=== PATIENT | female | born 1940 | race Caucasian/White ===

== ENCOUNTER 2016-12-06 10:33 | Inpatient (IN) | payer OTHER, MEDICARE ==
[2016-12-06 10:47] VITALS: BMI 26.5
--- NOTE | 2016-12-06 11:43 | PDOC ---
History of Present Illness - General History Source: Patient, Family, Old Records Exam Limitations: No Limitations - History of Present Illness Initial Comments: 12/06/16 12:36 The patient is a 76 year old female, with a significant past medical history of hypertension, hyperlipidemia, sciatica, restless leg syndrome and osteoarthritis , who presents to the emergency department with worsening bilateral lower extremity swelling for the past week. The patients family is at the bedside. Currently in the ED, the patient additionally reports right hip pain, but notes that this is a chronic issue, which she has been worked up for (the patient reports that she had MRIs of lumbar spine and right hip on 11/19/2016) and is scheduled for a right total hip replacement secondary to osteoarthritis on 2016. The patient reports that the chronic right hip pain is exacerbated when lying down so she sits upright all day, including when she sleeps at night. The patient reports that she uses a wheelchair to get around. As a result, the patient reports that her legs are never elevated. Approximately one week ago, the patient noticed that her lower extremities had started to become swollen. The patient reports progressively worsening bilateral lower extremity swelling since then. The patients daughter reports that she called the patients PCP ( Dr. Kay Rucker) earlier this morning, who advised they visit the ED for further evaluation. The patient reports that she has never experienced lower extremity swelling ever before. The patient denies chest pain or shortness of breath. The patient denies any extremity weakness/numbness/tingling. The patient denies any calf pain. The patient reports that she most recently took Oxycodone this morning at approximately 9AM for pain. Allergies: Penicillins. Past Surgical History: Left Total Hip Replacement. Social History: Non smoker. Denies alcohol or drug use. PCP: Dr. Kay Rucker Front Desk Representative: Dr. Rafael Perez Orthopedics: Dr. Will Ramos <Samantha Alfaro - Last Filed: 12/06/16 15:54> <Yoselyn Gil - Last Filed: 12/07/16 10:46> - General Chief Complaint: Edema Stated Complaint: PAIN, SWOLLEN LEGS Time Seen by Provider: 12/06/16 11:05 Past History <Samantha Alfaro - Last Filed: 12/06/16 15:54> - Past Medical History Cardiac Disorders: Yes Hypercholesterolemia: Yes Other medical history: sciatica,restless leg syndrome - Psycho/Social/Smoking Cessation Hx Suicidal Ideation: No Smoking History: Never smoked Substance Use Type: None <Yoselyn Gil - Last Filed: 12/07/16 10:46> - Past Medical History Allergies/Adverse Reactions: Allergies Allergy/AdvReac Type Severity Reaction Status Date / Time Penicillins Allergy Itching Verified 12/06/16 10:45 Home Medications: Ambulatory Orders Aspirin [ASA -] 81 mg PO DAILY 12/06/16 Atorvastatin Ca [Lipitor] 10 mg PO HS 12/06/16 Carvedilol [Coreg -] 25 mg PO BID 12/06/16 Gabapentin [Neurontin -] 300 mg PO BID 12/06/16 Losartan Potassium 25 mg PO DAILY 12/06/16 Oxycodone HCl/Acetaminophen [Percocet 5-325 mg Tablet] 1 tab PO Q4H PRN Oxycodone Sr [Oxycontin] 0 mg PO BID 12/06/16 Pramipexole Di-HCl [Mirapex] 0.5 mg PO BID 12/06/16 Review of Systems - Review of Systems Able to Perform ROS?: Yes Comments:: 12/06/16 11:50 GENERAL/CONSTITUTIONAL: No fever or chills. No weakness. HEAD, EYES, EARS, NOSE AND THROAT: No change in vision. No ear pain or discharge. No sore throat. CARDIOVASCULAR: No chest pain or shortness of breath. RESPIRATORY: No cough, wheezing, or hemoptysis. GASTROINTESTINAL: No nausea, vomiting, diarrhea or constipation. GENITOURINARY: No dysuria, frequency, or change in urination. MUSCULOSKELETAL: +Right hip pain. No muscle swelling or pain. No neck or back pain. EXTREMITY: +Bilateral lower extremity swelling. SKIN: No rash. NEUROLOGIC: No headache, vertigo, loss of consciousness, or change in strength/ sensation. ENDOCRINE: No increased thirst. No abnormal weight change. HEMATOLOGIC/LYMPHATIC: No anemia, easy bleeding, or history of blood clots. ALLERGIC/IMMUNOLOGIC: No hives or skin allergy. <Samantha Alfaro - Last Filed: 12/06/16 15:54> *Physical Exam - Vital Signs Last Vital Signs Temp Pulse Resp BP Pulse Ox 98 F 62 17 137/64 95 12/06/16 10:45 12/06/16 10:45 12/06/16 10:45 12/06/16 10:45 12/06/16 10:45 - Physical Exam Comments: 12/06/16 11:49 GENERAL: Awake, alert, and fully oriented, in no acute distress. HEAD: No signs of trauma. EYES: PERRLA, EOMI, sclera anicteric, conjunctiva clear. ENT: Auricles normal inspection, hearing grossly normal, nares patent, oropharynx clear without exudates. Moist mucosa. NECK: Normal ROM, supple, no lymphadenopathy, JVD, or masses. LUNGS: Breath sounds equal, clear to auscultation bilaterally. No wheezes, and no crackles. HEART: Regular rate and rhythm, normal S1 and S2, no murmurs, rubs or gallops. ABDOMEN: Soft, nontender, normoactive bowel sounds. No guarding, no rebound. No masses. EXTREMITIES: 2+ pitting edema to the mid villarreal, bilaterally. Normal range of motion. No clubbing or cyanosis. No cords, erythema, or tenderness. NEUROLOGICAL: Cranial nerves II through XII intact. Normal speech. Unable to ambulate secondary to pain. SKIN: Warm, dry, normal turgor, no rashes or lesions noted. <Samantha Alfaro - Last Filed: 12/06/16 15:54> - Vital Signs Last Vital Signs Temp Pulse Resp BP Pulse Ox 98 F 62 17 137/64 95 12/06/16 10:45 12/06/16 10:45 12/06/16 10:45 12/06/16 10:45 12/06/16 10:45 <Yoselyn Gil - Last Filed: 12/07/16 10:46> ED Treatment Course - LABORATORY CBC & Chemistry Diagram: 12/06/16 11:43 12/06/16 11:43 <Samantha Alfaro - Last Filed: 12/06/16 15:54> - LABORATORY CBC & Chemistry Diagram: 12/07/16 07:45 12/07/16 07:45 <Yoselyn Gil - Last Filed: 12/07/16 10:46> Medical Decision Making - Medical Decision Making 12/06/16 13:51 EXAM: RAD/HIP - RIGHT Reviewed By: Dr. Lui Jeong IMPRESSION: Severe arthritic changes right hip. EXAM: US/DUPLEX VASCUL US - 2LEGS Reviewed By: Dr. Venu Lopez IMPRESSION: There is no evidence of deep venous thromboses in both lower extremities. Call placed to Dr. Kay Rucker at 13:50. Connected and case discussed. <Samantha Alfaro - Last Filed: 12/06/16 15:54> - Medical Decision Making Pt required multiple doses of morphine for pain, on top of the opioids she has taken as an outpatient. I discussed with Dr. Santamaria, recommended ultrasound to further evaluate. Requested admission to the hospitalist service for intractable pain. Will consult with Dr. Ramos, who has been planning for patient's hip replacement later this month. <Yoselyn Gil - Last Filed: 12/07/16 10:46> *DC/Admit/Observation/Transfer - Attestations Scribe Attestion: 12/06/16 11:49 Documentation prepared by Samantha Alfaro, acting as medical office assistant for Yoselyn Gil MD. <Samantha Alfaro - Last Filed: 12/06/16 15:54> - Discharge Dispostion Admit: Yes <Yoselyn Gil - Last Filed: 12/07/16 10:46> Diagnosis at time of Disposition: Leg pain, bilateral, Intractable pain - Discharge Dispostion Condition at time of disposition: Stable - Referrals
[2016-12-06 12:52] LABS: BASOPHIL 0.3 % (0-2.0); EOSINOPHIL 1.1 % (0-4.5); MCH 30.9 pg (25.7-33.7); MCHC 33.5 g/dl (32.0-36.0); MEAN CELL VOLUME 92.3 fl (80-96); MEAN PLT VOLUME 7.2 fl (7.5-11.1); NEUTROPHILS 51.9 % (42.8-82.8); PLATELET COUNT 256 K/MM3 (134-434); RDW 13.5 % (11.6-15.6); WHITE BLOOD COUNT 7.6 K/mm3 (4.0-10.0)
[2016-12-06] MEDS ORDERED: morphine CARPU-JECT 2 MG/1 ML DISP.SYRIN IVPUSH ONE ×2 (13:02→13:38)
[2016-12-06 13:12] LABS: ALBUMIN 3.8 g/dl (3.4-5.0); ANION GAP 8 (8-16); BILIRUBIN,TOTAL 0.4 mg/dL (0.2-1.0); CALCIUM 9.2 mg/dL (8.5-10.1); CO2 29 mmol/L (21-32); COCKROFT - GAULT 80.2315; CREATININE 0.6 mg/dL (0.55-1.02); GLUCOSE,RANDOM 106 mg/dL (74-106); SGOT/AST 18 U/L (15-37); SGPT/ALT 20 U/L (12-78); TOT PROT 6.8 g/dl (6.4-8.2)
[2016-12-06 13:13] LABS: ALK PHOS 93 U/L (45-117)
[2016-12-06] MEDS ORDERED: morphine CARPU-JECT 2 MG/1 ML DISP.SYRIN ONE ×2 (13:21→13:51)
[2016-12-06] MEDS ORDERED: morphine CARPU-JECT 4 MG/1 ML DISP.SYRIN IVPUSH ONE (15:53)
[2016-12-06] MEDS ORDERED: ACETAMINOPHEN 325 MG TABLET (FP) PO PRN ×2 (15:53→18:21)
[2016-12-06] MEDS ORDERED: TRIAMCINOLONE HEXACETONIDE 20 MG/1 ML VIAL IAR ONE (15:58)
[2016-12-06] MEDS ORDERED: LIDOCAINE HCL/PF 2% SDV 5ML VIAL SQ ONE (15:59)
--- NOTE | 2016-12-06 16:03 | CONSULT ---
Consult Consult Specialty:: Dr. Rucker Reason for Consultation:: 76 y/o female admitted with excruciating lower extremity pain, bilateral. The patient has severe O/A, and had been scheduled for Total hip replacement by Dr. Will Ramos. No h/o trauma. The patient has progressive bilateral LE edema. No chest pain. The patient is rolling in pain. The pain she ays is bilateral, and is radiating from both hips. She had left hip replacement several years ago, and had been doing well till this pain has started. The patient has h/o of HTN, Sciatica, O/A, Left hip replacement. - History Source History Provided By: Patient Limitations to Obtaining History: No Limitations - Past Medical History Cardio/Vascular: Yes: HTN, Hyperlipdemia Pulmonary: Yes: Other. No: Asthma, Bronchitis, Cancer, COPD, O2 Dependent, Pneumonia, Previously Intubated, Pulmonary Embolus, Pulmonary Fibrosis, Sleep Apnea Gastrointestinal: No: Ascites, Crohn's Disease, Pancreatitis Hepatobiliary: No: Cirrhosis, Cholelithiasis Renal/: No: Renal Failure Rheumatology: Yes: Other (Osteoarthritis) Endocrine: No: Diabetes Mellitus, Hyperparathyroidism, Hypothyroidism - Past Surgical History Past Surgical History: Yes: Joint Replacement - Smoking History Smoking history: Never smoked Home Medications - Allergies Allergies/Adverse Reactions: Allergies Allergy/AdvReac Type Severity Reaction Status Date / Time Penicillins Allergy Itching Verified 12/06/16 10:45 - Home Medications Home Medications: Ambulatory Orders Aspirin [ASA -] 81 mg PO DAILY 12/06/16 Atorvastatin Ca [Lipitor] 10 mg PO HS 12/06/16 Carvedilol [Coreg -] 25 mg PO BID 12/06/16 Gabapentin [Neurontin -] 300 mg PO BID 12/06/16 Losartan Potassium 25 mg PO DAILY 12/06/16 Oxycodone HCl/Acetaminophen [Percocet 5-325 mg Tablet] 1 tab PO Q4H PRN Oxycodone Sr [Oxycontin] 0 mg PO BID 12/06/16 Pramipexole Di-HCl [Mirapex] 0.5 mg PO BID 12/06/16 Review of Systems - Review of Systems Constitutional: reports: No Symptoms Eyes: reports: No Symptoms, Floaters HENT: reports: No Symptoms Neck: reports: No Symptoms Cardiovascular: denies: Chest Pain, Palpitations Respiratory: denies: Cough, Orthopnea Gastrointestinal: denies: Abdominal Pain Genitourinary: denies: Burning, Flank Pain Musculoskeletal: reports: Back Pain, Extremity Pain, Joint Pain, Muscle Pain Neurological: reports: No Symptoms Physical Exam Vital Signs: Vital Signs Temperature 98 F 12/06/16 10:45 Pulse Rate 79 12/06/16 15:14 Respiratory Rate 18 12/06/16 15:14 Blood Pressure 171/87 12/06/16 15:14 O2 Sat by Pulse Oximetry (%) 97 12/06/16 15:14 Constitutional: Yes: Other (Severe pain in both LE) HENT: Yes: Atraumatic Neck: Yes: Supple Cardiovascular: Yes: Regular Rate and Rhythm, S1, S2 Respiratory: Yes: Regular, CTA Bilaterally Gastrointestinal: Yes: Normal Bowel Sounds Edema: Yes Edema: LLE: 4+, RLE: 4+ Neurological: Yes: Alert, Oriented Psychiatric: Yes: Alert, Oriented Labs: CBC, BMP 12/06/16 11:43 12/06/16 11:43 Problem List - Problems (1) Intractable pain Code(s): R52 - PAIN, UNSPECIFIED (2) Leg pain, bilateral Code(s): M79.604 - PAIN IN RIGHT LEG M79.605 - PAIN IN LEFT LEG (3) Edema Code(s): R60.9 - EDEMA, UNSPECIFIED (4) Hypertension Code(s): I10 - ESSENTIAL (PRIMARY) HYPERTENSION (5) Osteoarthritis, hip, bilateral Code(s): M16.0 - BILATERAL PRIMARY OSTEOARTHRITIS OF HIP Assessment/Plan 76 y/o female admitted with intractable pain and significant edema of the LE ( taty). Will need Orthopedic eval, Pain management eval Analgesics Diuretics Will follow with derik. Kay Rucker MD
[2016-12-06] MEDS ORDERED: FUROSEMIDE 40 MG TABLET (FP) PO SCH (16:15)
[2016-12-06] MEDS ORDERED: morphine CARPU-JECT 4 MG/1 ML DISP.SYRIN ONE (16:16)
[2016-12-06] MEDS ORDERED: LIDOCAINE HCL 2% (20ML MULTI-DOSE VIAL) NR ONE (16:17)
[2016-12-06] MEDS ORDERED: ENOXAPARIN NA (PORCINE) 40 MG/0.4 ML DISP.SYRIN SQ ONE (16:17)
[2016-12-06] MEDS ORDERED: FUROSEMIDE 40 MG TABLET (FP) ONE (16:17)
[2016-12-06] MEDS: ENOXAPARIN NA (PORCINE) 40 MG/0.4 ML DISP.SYRIN SQ SCH (16:24)
[2016-12-06] MEDS ORDERED: OXYCODONE/APAP 5/325MG COMBO TABLET PO PRN (17:54)
[2016-12-06] MEDS ORDERED: oxyCODONE HCL 5 MG TABLET PO PRN (18:21)
[2016-12-06 19:39] LABS: MAGNESIUM 2.1 mg/dL (1.8-2.4)
[2016-12-06 19:40] LABS: PHOSPHOROUS 3.8 mg/dL (2.5-4.9)
--- NOTE | 2016-12-06 20:07 | HP ---
Admitting History and Physical - Primary Care Physician PCP: Kay Rucker - Admission Chief Complaint: Lower ext pain, swelling, immobility History of Present Illness: This 76 year old female with HTN, HLD, severe OA, and hip replacement 9 years ago presented to the ED with bilateral lower extremity edema and intractable pain. Two weeks ago the swelling in the legs began and in the past week they have worsened and today coupled with the pain the patient was prompted to go to the ED. While in the ED pt states her legs feel better in a dependent position. Her daughter notes the RLE was more swollen than the left however now the Left is increased in edema with a anterior villarreal fluid collection the size of a to. She denies hx of CHF, DM, kidney issues. She denies SOB and CP. She has been very healthy and no in contact with any sick persons. She has not had a BM in 1 week, she has gained weight due to increase in food intake and states she has been sedentary. She has not had any issues following her first hip replacement until now and is scheduled for R hip replacement on . History Source: Patient, Family Member Limitations to Obtaining History: No Limitations - Past Medical History Cardiovascular: Yes: HTN, Hyperlipdemia Pulmonary: Yes: Other. No: Asthma, Bronchitis, Cancer, COPD, O2 Dependent, Pneumonia, Previously Intubated, Pulmonary Embolus, Pulmonary Fibrosis, Sleep Apnea Gastrointestinal: No: Ascites, Crohn's Disease, Pancreatitis Hepatobiliary: No: Cirrhosis, Cholelithiasis Renal/: No: Renal Failure Musculoskeletal: Yes: Osteoarthritis Rheumatology: Yes: Other (Osteoarthritis) Endocrine: No: Diabetes Mellitus, Hyperparathyroidism, Hypothyroidism - Past Surgical History Past Surgical History: Yes: Joint Replacement Additional Past Surgical History: L hip replacement 9 years ago - Smoking History Smoking history: Never smoked - Alcohol/Substance Use Hx Alcohol Use: No History of Substance Use: reports: None - Social History Usual Living Arrangement: Yes: With Spouse ADL: Independent Home Medications - Allergies Allergies/Adverse Reactions: Allergies Allergy/AdvReac Type Severity Reaction Status Date / Time Penicillins Allergy Itching Verified 12/06/16 10:45 - Home Medications Home Medications: Ambulatory Orders Aspirin [ASA -] 81 mg PO DAILY 12/06/16 Atorvastatin Ca [Lipitor] 10 mg PO HS 12/06/16 Carvedilol [Coreg -] 25 mg PO BID 12/06/16 Gabapentin [Neurontin -] 300 mg PO BID 12/06/16 Losartan Potassium 25 mg PO DAILY 12/06/16 Oxycodone HCl/Acetaminophen [Percocet 5-325 mg Tablet] 1 tab PO Q4H PRN Oxycodone Sr [Oxycontin] 0 mg PO BID 12/06/16 Pramipexole Di-HCl [Mirapex] 0.5 mg PO BID 12/06/16 Review of Systems - Review of Systems Constitutional: reports: No Symptoms Eyes: reports: No Symptoms HENT: reports: No Symptoms Neck: reports: No Symptoms Cardiovascular: reports: No Symptoms Respiratory: reports: No Symptoms Gastrointestinal: reports: No Symptoms Genitourinary: reports: No Symptoms Musculoskeletal: reports: Decreased ROM (r hip), Extremity Pain (R LE), Joint Pain (r hip) Integumentary: reports: No Symptoms Neurological: reports: No Symptoms Endocrine: reports: No Symptoms Hematology/Lymphatic: reports: No Symptoms Psychiatric: reports: No Symptoms Physical Examination Vital Signs: Vital Signs Temperature 98.5 F 12/06/16 18:59 Pulse Rate 72 12/06/16 18:59 Respiratory Rate 20 12/06/16 18:59 Blood Pressure 133/80 12/06/16 18:59 O2 Sat by Pulse Oximetry (%) 97 12/06/16 15:14 Constitutional: Yes: No Distress Eyes: Yes: Conjunctiva Clear HENT: Yes: Atraumatic Neck: Yes: Supple Cardiovascular: Yes: Regular Rate and Rhythm, S1, S2 Respiratory: Yes: Regular, CTA Bilaterally Gastrointestinal: Yes: Normal Bowel Sounds, Soft Renal/: Yes: WNL Musculoskeletal: Yes: Joint Stiffness (r hip) Extremities: Yes: Other (immboility of R hip) Edema: Yes Edema: LLE: 4+, RLE: 4+ Neurological: Yes: Alert, Oriented, Cran Nerves II-XII Intact Psychiatric: Yes: Alert, Oriented Imaging - Results X-ray: Report Reviewed (HIP: severe arthritic hip changes R hip) Ultrasound: Report Reviewed (LE arterial doppler negative for occlusion DVT) Problem List - Problems (1) Edema Code(s): R60.9 - EDEMA, UNSPECIFIED (2) Hypertension Code(s): I10 - ESSENTIAL (PRIMARY) HYPERTENSION (3) Intractable pain Code(s): R52 - PAIN, UNSPECIFIED (4) Leg pain, bilateral Code(s): M79.604 - PAIN IN RIGHT LEG M79.605 - PAIN IN LEFT LEG (5) Osteoarthritis, hip, bilateral Code(s): M16.0 - BILATERAL PRIMARY OSTEOARTHRITIS OF HIP Assessment/Plan Assessment: 53 year old female admitted with intractable lower extremity pain and worsening b/l lower extremity edema Plan: 1. Bilateral LE edema - Give Lasix 40 ivp now - Start Lasix 40 IV BID tomorrow - ECHO in am - Doppler negative for DVT - BNP wnl - Place patel - CXR in AM 2. Intractable b/l leg pain - Due to worsening edema vs acute OA exacerbation - Oxycodone 5 q4 prn - Oxycontin 10mg BID - Ortho consulted 3. HTN - Controlled - Coreg 25 BID - Losartan 25 Daily 4. HLD - Lipitor 40 HS 5. Constipation - 2 tabs Senna HS - Miralax daily - Colace TID 6. R hip severe degenerative changes - Scheduled for hip replacement 12/30 - Dr. Ramos to see pt Visit type - Emergency Visit Emergency Visit: Yes ED Registration Date: 12/06/16 Care time: The patient presented to the Emergency Department on the above date and was hospitalized for further evaluation of their emergent condition. - New Patient This patient is new to me today: Yes Date on this admission: 12/06/16 - Critical Care Critical Care patient: No
[2016-12-06] MEDS ORDERED: FUROSEMIDE 40 MG/4 ML INJECTABLE VIAL IVPUSH ONE (20:09)
[2016-12-06] MEDS: morphine CARPU-JECT 2 MG/1 ML DISP.SYRIN IVPUSH PRN (20:18)
[2016-12-06] MEDS: ATORVASTATIN CA 10 MG TABLET (FP) PO SCH (22:12)
[2016-12-06] MEDS: POLYETHYLENE GLYCOL 3350 119 GM BTL PO SCH (22:12)
[2016-12-06] MEDS: DOCUSATE SODIUM 100 MG CAPSULE (FP) PO SCH (22:12)
[2016-12-06] MEDS: SENNOSIDES 8.6MG TABLET (FP) PO SCH (22:12)
[2016-12-06] MEDS: oxyCODONE HCL 10 MG SUSTAINED ACTING TABLET PO SCH (22:12)
[2016-12-06] MEDS: GABAPENTIN 300 MG CAPSULE (FP) PO SCH (22:12)
[2016-12-06] MEDS: CARVEDILOL 25 MG TABLET (FP) PO SCH (22:12)
[2016-12-06] MEDS: PRAMIPEXOLE DIHYDROCHLORIDE 0.5 MG TABLET PO SCH (23:28)
[2016-12-07] MEDS: morphine CARPU-JECT 2 MG/1 ML DISP.SYRIN IVPUSH PRN ×3 (00:13→19:52)
[2016-12-07] MEDS: oxyCODONE HCL 5 MG TABLET PO PRN ×3 (00:24→14:50)
[2016-12-07] MEDS: ACETAMINOPHEN 325 MG TABLET (FP) PO PRN (00:25)
[2016-12-07] MEDS: DOCUSATE SODIUM 100 MG CAPSULE (FP) PO SCH ×3 (06:44→22:06)
[2016-12-07] MEDS: FUROSEMIDE 40 MG/4 ML INJECTABLE VIAL IVPUSH SCH ×3 (06:44→16:36)
--- NOTE | 2016-12-07 07:22 | PN ---
Progress Note (short form) - Note Progress Note: Pt seen and examined. Full consult to follow.
[2016-12-07 08:19] LABS: BASOPHIL 0.5 % (0-2.0); EOSINOPHIL 0.7 % (0-4.5); MCH 30.5 pg (25.7-33.7); MCHC 33.5 g/dl (32.0-36.0); MEAN PLT VOLUME 7.1 fl (7.5-11.1); NEUTROPHILS 42.1 % (42.8-82.8); PLATELET COUNT 271 K/MM3 (134-434); RDW 13.5 % (11.6-15.6); WHITE BLOOD COUNT 7.3 K/mm3 (4.0-10.0)
[2016-12-07 08:51] LABS: CALCIUM 9.6 mg/dL (8.5-10.1)
[2016-12-07 09:03] LABS: COCKROFT - GAULT 72.114; CREATININE 0.7 mg/dL (0.55-1.02); THYROID STIMULATING HORMONE 0.59 uIU/ml (0.358-3.74)
[2016-12-07] MEDS: GABAPENTIN 300 MG CAPSULE (FP) PO SCH ×2 (10:40→22:06)
[2016-12-07] MEDS: LOSARTAN POTASSIUM 25 MG TABLET PO SCH (10:40)
[2016-12-07] MEDS: CARVEDILOL 25 MG TABLET (FP) PO SCH ×2 (10:40→22:06)
[2016-12-07] MEDS: ENOXAPARIN NA (PORCINE) 40 MG/0.4 ML DISP.SYRIN SQ SCH (10:40)
[2016-12-07] MEDS: oxyCODONE HCL 10 MG SUSTAINED ACTING TABLET PO SCH ×2 (10:41→22:07)
[2016-12-07] MEDS: POLYETHYLENE GLYCOL 3350 119 GM BTL PO SCH (10:43)
[2016-12-07] MEDS: PRAMIPEXOLE DIHYDROCHLORIDE 0.5 MG TABLET PO SCH ×2 (10:48→22:07)
--- NOTE | 2016-12-07 11:32 | PN ---
Progress Note (short form) - Note Progress Note: Renal Follow up for Edema/Volume Management Pt seen and examined at the bedside continues to have tenderness in the LE no sob or chest pain s/p IV Lasix no fever, chills, N/V/D Vital Signs Temperature 98.4 F 12/07/16 09:49 Pulse Rate 74 12/07/16 09:49 Respiratory Rate 20 12/07/16 09:49 Blood Pressure 122/59 12/07/16 09:49 O2 Sat by Pulse Oximetry (%) 97 12/06/16 22:44 Intake & Output 12/04/16 12/05/16 12/06/16 12/07/16 23:59 23:59 23:59 23:59 Intake Total 600 Output Total 900 Balance 600 -900 Weight 145 lb 152 lb 1 oz Gen: NAD, awake and alert HEENT: NC/AT CVS: RRR, No M/R Lungs: CTA Abd: soft NT/ND Ext: 2+ edema in the LE CBC, BMP 12/07/16 07:45 12/07/16 07:45 Current Medications Acetaminophen (Tylenol -) 650 mg PO Q4H PRN PRN Reason: FEVER OR PAIN Acetaminophen (Tylenol -) 325 mg PO Q4H PRN PRN Reason: PAIN Last Admin: 12/07/16 00:25 Dose: 325 mg Atorvastatin Calcium (Lipitor -) 10 mg PO HS [facility] Last Admin: 12/06/16 22:12 Dose: 10 mg Carvedilol (Coreg -) 25 mg PO BID [facility] Last Admin: 12/07/16 10:40 Dose: 25 mg Docusate Sodium (Colace -) 100 mg PO TID [facility] Last Admin: 12/07/16 06:44 Dose: 100 mg Enoxaparin Sodium (Lovenox -) 40 mg SQ DAILY [facility] Last Admin: 12/07/16 10:40 Dose: 40 mg Furosemide (Lasix Injection -) 40 mg IVPUSH BID@0600,1400 [facility] Last Admin: 12/07/16 06:44 Dose: 40 mg Gabapentin (Neurontin -) 300 mg PO BID [facility] Last Admin: 12/07/16 10:40 Dose: 300 mg Losartan Potassium (Cozaar -) 25 mg PO DAILY [facility] Last Admin: 12/07/16 10:40 Dose: 25 mg Morphine Sulfate (Morphine Injection -) 1 mg IVPUSH Q4H PRN PRN Reason: PAIN Last Admin: 12/07/16 05:36 Dose: 1 mg Oxycodone HCl (Oxycontin -) 10 mg PO BID [facility] Last Admin: 12/07/16 10:41 Dose: 10 mg Oxycodone HCl (Roxicodone -) 5 mg PO Q4H PRN PRN Reason: PAIN Last Admin: 12/07/16 08:56 Dose: 5 mg Polyethylene Glycol (Miralax (For Daily Use) -) 17 gm PO DAILY [facility] Last Admin: 12/07/16 10:43 Dose: 17 gm Pramipexole Dihydrochloride (Mirapex -) 0.5 mg PO BID [facility] Last Admin: 12/07/16 10:48 Dose: 0.5 mg Senna (Senna -) 2 tab PO HS [facility] Last Admin: 12/06/16 22:12 Dose: 2 tab A/P 76 year old woman with PMhx of hypertension, hyperlipidemia, sciatica, restless leg syndrome and osteoarthritis presented with complaints of LE pain and swelling. #LE swelling Etiology unclear at this time no hx of CHF, CKD, Liver disease BUN/Cr stable, UA and UPCR is pending to r/o nephrotic range proteinuria ECHO result pending Continue Lasix 40mg IV BID for volume management Doppler of LE is negative #Hypertension Continue Coreg, Losartan Thank you Kameron Logan DO
--- NOTE | 2016-12-07 12:43 | PN ---
Physical Exam: SUBJECTIVE: Patient seen and examined. She says her legs look a little better. She feels dizzy and says she can't walk. OBJECTIVE: Last Vital Signs Temp Pulse Resp BP Pulse Ox 98.4 F 74 20 122/59 97 12/07/16 09:49 12/07/16 09:49 12/07/16 09:49 12/07/16 09:49 12/06/16 22:44 PE Neuro: alert, awake, cn 2-12intact Pulm: CTAB CV: s1 s2 rrr no mrg Abd: s nt nd + bs Ext: b/l le edema to the knee LLE +3, RLE +2 Msk: b/l hip pain Active Medications Generic Name Dose Route Start Last Admin Trade Name Freq PRN Reason Stop Dose Admin Acetaminophen 650 mg 12/06/16 15:53 Tylenol - PO Q4H PRN FEVER OR PAIN Acetaminophen 325 mg 12/06/16 18:22 12/07/16 00:25 Tylenol - PO 325 mg Q4H PRN Administration PAIN Atorvastatin Calcium 10 mg 12/06/16 22:00 12/06/16 22:12 Lipitor - PO 10 mg HS [facility] Administration Carvedilol 25 mg 12/06/16 22:00 12/07/16 10:40 Coreg - PO 25 mg BID [facility] Administration Docusate Sodium 100 mg 12/06/16 22:00 12/07/16 06:44 Colace - PO 100 mg TID [facility] Administration Enoxaparin Sodium 40 mg 12/06/16 16:00 12/07/16 10:40 Lovenox - SQ 40 mg DAILY [facility] Administration Furosemide 40 mg 12/07/16 06:00 12/07/16 06:44 Lasix Injection - IVPUSH 40 mg BID@0600,1400 [facility] Administration Gabapentin 300 mg 12/06/16 22:00 12/07/16 10:40 Neurontin - PO 300 mg BID [facility] Administration Losartan Potassium 25 mg 12/07/16 10:00 12/07/16 10:40 Cozaar - PO 25 mg DAILY [facility] Administration Morphine Sulfate 1 mg 12/06/16 15:53 12/07/16 05:36 Morphine Injection - IVPUSH 1 mg Q4H PRN Administration PAIN Oxycodone HCl 10 mg 12/06/16 22:00 12/07/16 10:41 Oxycontin - PO 10 mg BID [facility] Administration Oxycodone HCl 5 mg 12/06/16 18:22 12/07/16 08:56 Roxicodone - PO 5 mg Q4H PRN Administration PAIN Polyethylene Glycol 17 gm 12/06/16 18:00 12/07/16 10:43 Miralax (For Daily Use) - PO 17 gm DAILY [facility] Administration Pramipexole Dihydrochloride 0.5 mg 12/06/16 22:00 12/07/16 10:48 Mirapex - PO 0.5 mg BID [facility] Administration Senna 2 tab 12/06/16 22:00 12/06/16 22:12 Senna - PO 2 tab HS [facility] Administration Imaging: - CXR 12/07: minimal bibasilar changes Assessment: 53 year old female admitted with intractable lower extremity pain and worsening b/l lower extremity edema Plan: 1. Bilateral LE edema - Unclear etiology - Lasix 40 IV BID - ECHO pending - UA, urine p/c, ur protein ordered 2. Intractable b/l leg pain/weakness/inability to ambulate - r/o lumbar radiculopathy - Per ortho sx considerably worse since last visit, sx not c/w hip arthritis - MRI lumbar spine to evaluate for degenerative disease/stenosis - Neurology consulted - Dr. Mccrary consulted - Oxycontin 10mg BID - Oxycodone 5 q4 prn 3. HTN - Controlled - Coreg 25 BID - Losartan 25 Daily 4. HLD - Lipitor 40 HS 5. Constipation - 2 tabs Senna HS - Miralax daily - Colace TID 6. R hip severe degenerative changes - Scheduled for hip replacement 12/30, however given degree of decompensation no longer a candidate unless can become mobile again risk of DVT Problem List - Problems (1) Edema Code(s): R60.9 - EDEMA, UNSPECIFIED (2) Hypertension Code(s): I10 - ESSENTIAL (PRIMARY) HYPERTENSION (3) Intractable pain Code(s): R52 - PAIN, UNSPECIFIED (4) Leg pain, bilateral Code(s): M79.604 - PAIN IN RIGHT LEG M79.605 - PAIN IN LEFT LEG (5) Osteoarthritis, hip, bilateral Code(s): M16.0 - BILATERAL PRIMARY OSTEOARTHRITIS OF HIP Visit type - Emergency Visit Emergency Visit: Yes ED Registration Date: 12/07/16 Care time: The patient presented to the Emergency Department on the above date and was hospitalized for further evaluation of their emergent condition. - New Patient This patient is new to me today: No - Critical Care Critical Care patient: No
--- NOTE | 2016-12-07 13:04 | CONSULT ---
Consult - text type - Consultation Consultation Note: Orthopedics consult 76yo female admitted for bilateral LE swelling and intractable LE pain. Pt was seen by me in the office last month for severe right hip OA and was scheduled for a hip replacement on 12/30/16. Pt states that since she saw me, her function has progressively declined and she has been wheelchair bound due to pain radiating down both legs and severe weakness in both of her legs which makes it difficult for her to even stand up. The right hip pain is still present but is mostly unchanged from baseline. The presenting complaint is worsened weakness and pain radiating down both legs down to feet. No recent falls or trauma. Pt seen and examined. AVSS Selected Entries 12/07/16 09:49 Temperature 98.4 F Pulse Rate 74 Respiratory 20 Rate Blood Pressure 122/59 Laboratory Tests 12/07/16 12/07/16 12/07/16 07:45 07:45 07:45 WBC 7.3 Hgb 13.3 Hct 39.8 Plt Count 271 Sodium 138 Potassium 3.7 Chloride 98 Carbon Dioxide 30 Anion Gap 10 BUN 27 H D Creatinine 0.7 Random Glucose 118 H Hemoglobin A1c % 6.4 H Calcium 9.6 Gen: NAD, comfortable RLE: (+) pain and stiffness with ROM of hip which is moderate and not that much different than when last seen in office. Generalized bilateral lower extremity weakness and inability to stand and ambulate. C/O pain (paresthesias?) radiating down to lower legs and ankles. Sens intact to LT. Significant edema in both legs. Feet warm. R hip xray - severe OA Duplex LE - no DVT A/P 76yo female with severe bilateral LE radiating pain, motor weakness, edema 1. Hip exam is unchanged from the office. Pt has moderate groin pain on exam but that does not explain all her sx. I don't think that she came to the ER because of arthritic hip pain. 2. MRI lumbar spine to evalaute for degenerative disease / stenosis. 3. Severe LE weakness/inability to ambulate. Pt has severely decompensated since I saw her last on 11/23/16. Recommend physiatry consult (Dr. Galo) and neurology consult. 4. Pt has sx c/w lumbar radiculopathy and this seems at this point to be a more pressing concern than the hip arthritis. In her current condition, weak and unable to walk, she would not be a good candidate for a hip replacement. If this doesn't improve then we may have to reschedule the surgery because if she is sedentary/nonambulatory after a hip replacement she is likely to get a DVT/PE, especially since she already has poor circulation and edema in her legs.
[2016-12-07 21:54] LABS: URINE APPEARANCE CLEAR; URINE BILIRUBIN NEGATIVE (NEGATIVE); URINE BLOOD NEGATIVE (NEGATIVE); URINE COLOR LTYELLOW; URINE GLUCOSE (UA) NEGATIVE (NEGATIVE); URINE KETONE NEGATIVE (NEGATIVE); URINE NITRITE NEGATIVE (NEGATIVE); URINE PROTEIN NEGATIVE (NEGATIVE); URINE UROBILINOGEN NEGATIVE E.U./dl (0.2-1.0)
[2016-12-07 22:01] LABS: URINE LEUK ESTERASE TRACE (NEGATIVE)
[2016-12-07 22:03] LABS: URINE BACTERIA RARE /hpf (NONE SEEN); URINE HYALINE CAST 4 /lpf; URINE MUCUS RARE; URINE RBC 1 /hpf (0-3); URINE WBC 11 /hpf (3-5)
[2016-12-07] MEDS: SENNOSIDES 8.6MG TABLET (FP) PO SCH (22:06)
[2016-12-07] MEDS: ATORVASTATIN CA 10 MG TABLET (FP) PO SCH (22:07)
[2016-12-07 22:50] LABS: URINE CREATININE 44.8 mg/dL (20-320)
--- NOTE | 2016-12-07 22:58 | EKG ---
Test Reason : Blood Pressure : / mmHG Vent. Rate : 074 BPM Atrial Rate : 074 BPM P-R Int : 152 ms QRS Dur : 056 ms QT Int : 382 ms P-R-T Axes : 056 015 026 degrees QTc Int : 424 ms NORMAL SINUS RHYTHM NORMAL ECG WHEN COMPARED WITH ECG OF 07-SEP-2009 20:38, NO SIGNIFICANT CHANGE WAS FOUND Confirmed by VERN TIJERINA MD ([id number]) on 12/07/2016 10:58:13 PM Referred By: Confirmed By:VERN TIJERINA MD
[2016-12-08] MEDS: FUROSEMIDE 40 MG/4 ML INJECTABLE VIAL IVPUSH SCH ×2 (05:56→15:08)
[2016-12-08] MEDS: DOCUSATE SODIUM 100 MG CAPSULE (FP) PO SCH ×3 (05:56→23:01)
[2016-12-08 07:56] LABS: CALCIUM 9.8 mg/dL (8.5-10.1); COCKROFT - GAULT 62.6875; CREATININE 0.8 mg/dL (0.55-1.02)
[2016-12-08] MEDS: CARVEDILOL 25 MG TABLET (FP) PO SCH ×2 (09:39→23:01)
[2016-12-08] MEDS: morphine CARPU-JECT 2 MG/1 ML DISP.SYRIN IVPUSH PRN ×3 (09:39→19:28)
[2016-12-08] MEDS: ENOXAPARIN NA (PORCINE) 40 MG/0.4 ML DISP.SYRIN SQ SCH (09:39)
[2016-12-08] MEDS: LOSARTAN POTASSIUM 25 MG TABLET PO SCH (09:40)
[2016-12-08] MEDS: PRAMIPEXOLE DIHYDROCHLORIDE 0.5 MG TABLET PO SCH ×2 (09:40→23:01)
[2016-12-08] MEDS: oxyCODONE HCL 10 MG SUSTAINED ACTING TABLET PO SCH ×2 (09:41→23:02)
[2016-12-08] MEDS: GABAPENTIN 300 MG CAPSULE (FP) PO SCH ×2 (09:41→23:02)
[2016-12-08] MEDS: POLYETHYLENE GLYCOL 3350 119 GM BTL PO SCH (09:49)
[2016-12-08] MEDS ORDERED: DEXAMETHASONE SOD PHOSPHATE 4 MG/1 ML VIAL IVPB SCH (11:15)
[2016-12-08] MEDS ORDERED: BISACODYL 10 MG SUPP.RECT RC ONE (11:45)
[2016-12-08] MEDS ORDERED: Methylnaltrexone Bromide 12 MG/0.6 ML KIT SQ ONE (11:45)
[2016-12-08] MEDS: PANTOPRAZOLE 40 MG TABLET (FP) PO SCH (12:34)
--- NOTE | 2016-12-08 12:54 | PN ---
Progress Note (short form) - Note Progress Note: Renal Follow up for Edema/Volume Management Pt seen and examined at the bedside has some discomfort in the hip and thighs s/p MRI yesterday legs remain swollen no sob or chest pain Vital Signs Temperature 98.4 F 12/07/16 09:49 Pulse Rate 74 12/07/16 09:49 Respiratory Rate 20 12/07/16 09:49 Blood Pressure 122/59 12/07/16 09:49 O2 Sat by Pulse Oximetry (%) 97 12/06/16 22:44 Intake & Output 12/04/16 12/05/16 12/06/16 12/07/16 23:59 23:59 23:59 23:59 Intake Total 600 Output Total 900 Balance 600 -900 Weight 145 lb 152 lb 1 oz Gen: NAD, awake and alert CVS: RRR, No M/R Lungs: CTA Abd: soft NT/ND Ext: 2+ edema in the LE CBC, BMP 12/07/16 07:45 12/08/16 06:15 Laboratory Tests 12/08/16 06:15 Calcium 9.8 Current Medications Acetaminophen (Tylenol -) 650 mg PO Q4H PRN PRN Reason: FEVER OR PAIN Acetaminophen (Tylenol -) 325 mg PO Q4H PRN PRN Reason: PAIN Last Admin: 12/07/16 00:25 Dose: 325 mg Atorvastatin Calcium (Lipitor -) 10 mg PO HS [facility] Last Admin: 12/07/16 22:07 Dose: 10 mg Carvedilol (Coreg -) 25 mg PO BID [facility] Last Admin: 12/08/16 09:39 Dose: 25 mg Dexamethasone Sodium Phosphate (Decadron Injection -) 4 mg IVPB Q6H-IV [facility] Last Admin: 12/08/16 12:34 Dose: 4 mg Docusate Sodium (Colace -) 100 mg PO TID [facility] Last Admin: 12/08/16 05:56 Dose: 100 mg Enoxaparin Sodium (Lovenox -) 40 mg SQ DAILY [facility] Last Admin: 12/08/16 09:39 Dose: 40 mg Furosemide (Lasix Injection -) 40 mg IVPUSH BID@0600,1400 [facility] Last Admin: 12/08/16 05:56 Dose: 40 mg Gabapentin (Neurontin -) 300 mg PO BID [facility] Last Admin: 12/08/16 09:41 Dose: 300 mg Losartan Potassium (Cozaar -) 25 mg PO DAILY [facility] Last Admin: 12/08/16 09:40 Dose: 25 mg Morphine Sulfate (Morphine Injection -) 1 mg IVPUSH Q4H PRN PRN Reason: PAIN Last Admin: 12/08/16 09:39 Dose: 1 mg Oxycodone HCl (Oxycontin -) 10 mg PO BID [facility] Last Admin: 12/08/16 09:41 Dose: 10 mg Oxycodone HCl (Roxicodone -) 5 mg PO Q4H PRN PRN Reason: PAIN Last Admin: 12/07/16 14:50 Dose: 5 mg Pantoprazole Sodium (Protonix -) 40 mg PO DAILY [facility] Last Admin: 12/08/16 12:34 Dose: 40 mg Polyethylene Glycol (Miralax (For Daily Use) -) 17 gm PO DAILY [facility] Last Admin: 12/08/16 09:49 Dose: 17 gm Pramipexole Dihydrochloride (Mirapex -) 0.5 mg PO BID [facility] Last Admin: 12/08/16 09:40 Dose: 0.5 mg Senna (Senna -) 2 tab PO HS [facility] Last Admin: 12/07/16 22:06 Dose: 2 tab A/P 76 year old woman with PMhx of hypertension, hyperlipidemia, sciatica, restless leg syndrome and osteoarthritis presented with complaints of LE pain and swelling. #LE swelling ECHO showed diastolic dysfunction Renal function is within normal limits and pt without any proteinuria continue IV lasix Cardiology Eavl for Diastolic dysfunction Physical therapy eval Ortho follow up Neurology recs appreciated #Hypertension Continue Coreg, Losartan Thank you Kameron Logan DO
--- NOTE | 2016-12-08 13:16 | CONSULT ---
Consult - text type - Consultation Consultation Note: Neurology History of Present Illness The patient is a 76 year old female, with a significant past medical history of hypertension, hyperlipidemia, sciatica, restless leg syndrome and osteoarthritis , who presents to the emergency department with worsening bilateral lower extremity swelling for the past week. The patient additionally reports right hip pain, but notes that this is a chronic issue, and Orthopedist, Dr. Ramos on the case. She is on chronic pain medication of oxycodone and completed MRI L spine which demonstrated multilevel disc bulging. She continues to report pain and has not been ambulatory due to her ongoing back pain. Pain mgmt has been consulted and she has been started on low dose steroids in hopes of improved symptoms. Physical therapy also ordered and spoke with son at bedside in detail. They would not be interested in L spine surgery but considering hip surgery by orthopedist. Active Medications Acetaminophen (Tylenol -) 650 mg PO Q4H PRN PRN Reason: FEVER OR PAIN Acetaminophen (Tylenol -) 325 mg PO Q4H PRN PRN Reason: PAIN Last Admin: 12/07/16 00:25 Dose: 325 mg Atorvastatin Calcium (Lipitor -) 10 mg PO HS [facility] Last Admin: 12/07/16 22:07 Dose: 10 mg Carvedilol (Coreg -) 25 mg PO BID [facility] Last Admin: 12/08/16 09:39 Dose: 25 mg Dexamethasone Sodium Phosphate (Decadron Injection -) 4 mg IVPB Q6H-IV [facility] Last Admin: 12/08/16 12:34 Dose: 4 mg Docusate Sodium (Colace -) 100 mg PO TID [facility] Last Admin: 12/08/16 05:56 Dose: 100 mg Enoxaparin Sodium (Lovenox -) 40 mg SQ DAILY [facility] Last Admin: 12/08/16 09:39 Dose: 40 mg Furosemide (Lasix Injection -) 40 mg IVPUSH BID@0600,1400 [facility] Last Admin: 12/08/16 05:56 Dose: 40 mg Gabapentin (Neurontin -) 300 mg PO BID [facility] Last Admin: 12/08/16 09:41 Dose: 300 mg Losartan Potassium (Cozaar -) 25 mg PO DAILY [facility] Last Admin: 12/08/16 09:40 Dose: 25 mg Morphine Sulfate (Morphine Injection -) 1 mg IVPUSH Q4H PRN PRN Reason: PAIN Last Admin: 12/08/16 09:39 Dose: 1 mg Oxycodone HCl (Oxycontin -) 10 mg PO BID [facility] Last Admin: 12/08/16 09:41 Dose: 10 mg Oxycodone HCl (Roxicodone -) 5 mg PO Q4H PRN PRN Reason: PAIN Last Admin: 12/07/16 14:50 Dose: 5 mg Pantoprazole Sodium (Protonix -) 40 mg PO DAILY [facility] Last Admin: 12/08/16 12:34 Dose: 40 mg Polyethylene Glycol (Miralax (For Daily Use) -) 17 gm PO DAILY [facility] Last Admin: 12/08/16 09:49 Dose: 17 gm Pramipexole Dihydrochloride (Mirapex -) 0.5 mg PO BID [facility] Last Admin: 12/08/16 09:40 Dose: 0.5 mg Senna (Senna -) 2 tab PO HS [facility] Last Admin: 12/07/16 22:06 Dose: 2 tab Review of Systems GENERAL/CONSTITUTIONAL: No fever or chills. No weakness. HEAD, EYES, EARS, NOSE AND THROAT: No change in vision. No ear pain or discharge. No sore throat. CARDIOVASCULAR: No chest pain or shortness of breath. RESPIRATORY: No cough, wheezing, or hemoptysis. GASTROINTESTINAL: No nausea, vomiting, diarrhea or constipation. GENITOURINARY: No dysuria, frequency, or change in urination. MUSCULOSKELETAL: +Right hip pain. No muscle swelling or pain. No neck or back pain. EXTREMITY: +Bilateral lower extremity swelling. SKIN: No rash. NEUROLOGIC: No headache, vertigo, loss of consciousness, or change in strength/ sensation. ENDOCRINE: No increased thirst. No abnormal weight change. HEMATOLOGIC/LYMPHATIC: No anemia, easy bleeding, or history of blood clots. ALLERGIC/IMMUNOLOGIC: No hives or skin allergy. *Physical Exam Last Vital Signs Temp Pulse Resp BP Pulse Ox 98 F 62 17 137/64 95 12/06/16 10:45 12/06/16 10:45 12/06/16 10:45 12/06/16 10:45 12/06/16 10:45 GENERAL: Awake, alert, and fully oriented, in no acute distress. HEAD: No signs of trauma. EYES: PERRLA, EOMI, sclera anicteric, conjunctiva clear. ENT: Auricles normal inspection, hearing grossly normal, nares patent, oropharynx clear without exudates. Moist mucosa. NECK: Normal ROM, supple, no lymphadenopathy, JVD, or masses. LUNGS: Breath sounds equal, clear to auscultation bilaterally. No wheezes, and no crackles. HEART: Regular rate and rhythm, normal S1 and S2, no murmurs, rubs or gallops. ABDOMEN: Soft, nontender, normoactive bowel sounds. No guarding, no rebound. No masses. EXTREMITIES: 2+ pitting edema to the mid villarreal, bilaterally. Normal range of motion. No clubbing or cyanosis. No cords, erythema, or tenderness. NEUROLOGICAL: Cranial nerves II through XII intact. Normal speech. Unable to ambulate secondary to pain. Gait deferred, reflexes 1+ SKIN: Warm, dry, normal turgor, no rashes or lesions noted. CBCD WBC 7.3 K/mm3 (4.0-10.0) 12/07/16 07:45 RBC 4.37 M/mm3 (3.60-5.2) 12/07/16 07:45 Hgb 13.3 GM/dL (10.7-15.3) 12/07/16 07:45 Hct 39.8 % (32.4-45.2) 12/07/16 07:45 MCV 91.0 fl (80-96) 12/07/16 07:45 MCHC 33.5 g/dl (32.0-36.0) 12/07/16 07:45 RDW 13.5 % (11.6-15.6) 12/07/16 07:45 Plt Count 271 K/MM3 (134-434) 12/07/16 07:45 MPV 7.1 fl (7.5-11.1) L 12/07/16 07:45 CMP Sodium 136 mmol/L (136-145) 12/08/16 06:15 Potassium 3.6 mmol/L (3.5-5.1) 12/08/16 06:15 Chloride 93 mmol/L (98-107) L 12/08/16 06:15 Carbon Dioxide 32 mmol/L (21-32) 12/08/16 06:15 Anion Gap 11 (8-16) 12/08/16 06:15 BUN 33 mg/dL (7-18) H D 12/08/16 06:15 Creatinine 0.8 mg/dL (0.55-1.02) 12/08/16 06:15 Creat Clearance w eGFR > 60 (>60) 12/06/16 11:43 Calcium 9.8 mg/dL (8.5-10.1) 12/08/16 06:15 Total Bilirubin 0.4 mg/dL (0.2-1.0) 12/06/16 11:43 AST 18 U/L (15-37) 12/06/16 11:43 ALT 20 U/L (12-78) 12/06/16 11:43 Alkaline Phosphatase 93 U/L (45-117) 12/06/16 11:43 Total Protein 6.8 g/dl (6.4-8.2) 12/06/16 11:43 Albumin 3.8 g/dl (3.4-5.0) 12/06/16 11:43 Medical Decision Making 76 year old female, with a significant past medical history of hypertension, hyperlipidemia, sciatica, restless leg syndrome and osteoarthritis, who presents to the emergency department with worsening bilateral lower extremity swelling for the past week. The patient additionally reports right hip pain, but notes that this is a chronic issue, and Orthopedist, Dr. Ramos on the case. She is on chronic pain medication of oxycodone and completed MRI L spine which demonstrated multilevel disc bulging. She continues to report pain and has not been ambulatory due to her ongoing back pain. Pain mgmt has been consulted and she has been started on low dose steroids in hopes of improved symptoms. Physical therapy also ordered and spoke with son at bedside in detail. They would not be interested in L spine surgery but considering hip surgery by orthopedist. Patient started on Decadron and does have fluid in lower extremities which I would not expect 2/2 spinal stenosis. Would give steroids for 24hrs and monitor for fluid overload. Pt, pain mgmt, fall precautions recommended.
--- NOTE | 2016-12-08 16:26 | PN ---
Physical Exam: SUBJECTIVE: Patient seen and examined. She feels the worse today, she cannot move, and she feels weak. OBJECTIVE: Vital Signs Period Temp Pulse Resp BP Sys/Naqvi Pulse Ox Last 24 Hr 97.8 F-98.9 F 72-89 18-20 104-150/51-84 97 PE Neuro: alert, awake, cn 2-12intact Pulm: CTAB CV: s1 s2 rrr no mrg Abd: s nt nd + bs Ext: b/l le edema to the knee LLE +3, RLE +2 MSK: b/l hip pain Laboratory Results - last 24 hr 12/07/16 12/07/16 12/08/16 21:30 21:30 06:15 Sodium 136 Potassium 3.6 Chloride 93 L Carbon Dioxide 32 Anion Gap 11 BUN 33 H D Creatinine 0.8 Random Glucose 109 H Calcium 9.8 Urine Color Ltyellow Urine Appearance Clear Urine pH 5.0 Ur Specific [place] 1.009 Urine Protein Negative Urine Glucose (UA) Negative Urine Ketones Negative Urine Blood Negative Urine Nitrite Negative Urine Bilirubin Negative Urine Urobilinogen Negative Ur Leukocyte Esterase Trace H Urine RBC 1 Urine WBC 11 Ur Epithelial Cells Rare Urine Bacteria Rare Hyaline Casts 4 Urine Mucus Rare U Random Total Protein < 5 L Urine Creatinine 44.8 Active Medications Generic Name Dose Route Start Last Admin Trade Name Freq PRN Reason Stop Dose Admin Acetaminophen 650 mg 12/06/16 15:53 Tylenol - PO Q4H PRN FEVER OR PAIN Acetaminophen 325 mg 12/06/16 18:22 12/07/16 00:25 Tylenol - PO 325 mg Q4H PRN Administration PAIN Atorvastatin Calcium 10 mg 12/06/16 22:00 12/07/16 22:07 Lipitor - PO 10 mg HS [facility] Administration Carvedilol 25 mg 12/06/16 22:00 12/08/16 09:39 Coreg - PO 25 mg BID [facility] Administration Dexamethasone Sodium Phosphate 4 mg 12/08/16 11:15 12/08/16 12:34 Decadron Injection - IVPB 4 mg Q6H-IV [facility] Administration Docusate Sodium 100 mg 12/06/16 22:00 12/08/16 15:08 Colace - PO 100 mg TID [facility] Administration Enoxaparin Sodium 40 mg 12/06/16 16:00 12/08/16 09:39 Lovenox - SQ 40 mg DAILY [facility] Administration Furosemide 40 mg 12/07/16 06:00 12/08/16 15:08 Lasix Injection - IVPUSH 40 mg BID@0600,1400 [facility] Administration Gabapentin 300 mg 12/06/16 22:00 12/08/16 09:41 Neurontin - PO 300 mg BID [facility] Administration Losartan Potassium 25 mg 12/07/16 10:00 12/08/16 09:40 Cozaar - PO 25 mg DAILY [facility] Administration Morphine Sulfate 1 mg 12/06/16 15:53 12/08/16 15:08 Morphine Injection - IVPUSH 1 mg Q4H PRN Administration PAIN Oxycodone HCl 10 mg 12/06/16 22:00 12/08/16 09:41 Oxycontin - PO 10 mg BID [facility] Administration Oxycodone HCl 5 mg 12/06/16 18:22 12/07/16 14:50 Roxicodone - PO 5 mg Q4H PRN Administration PAIN Pantoprazole Sodium 40 mg 12/08/16 11:15 12/08/16 12:34 Protonix - PO 40 mg DAILY [facility] Administration Polyethylene Glycol 17 gm 12/06/16 18:00 12/08/16 09:49 Miralax (For Daily Use) - PO 17 gm DAILY [facility] Administration Pramipexole Dihydrochloride 0.5 mg 12/06/16 22:00 12/08/16 09:40 Mirapex - PO 0.5 mg BID [facility] Administration Senna 2 tab 12/06/16 22:00 12/07/16 22:06 Senna - PO 2 tab HS [facility] Administration Imaging: - CXR 12/07: minimal bibasilar changes Assessment: 53 year old female admitted with intractable lower extremity pain and worsening b/l lower extremity edema Plan: 1. Bilateral LE edema ? PAD vs diastolic CHF - ECHO 12/08: grade 1 diastolic dysfunction, LV size, fxn, normal, no wall motion abnormality, RVSP 30-40mmhg, mild PulmHTN, mod TR - Continue Lasix 40 IV BID - On Coreg 25mg BID - Losartan 25 daily - Vascular and cardiology consulted 2. Intractable b/l leg pain/weakness/inability to ambulate - MRI lumbar spine which demonstrated multilevel disc bulging - Decadron 4mg q6h x24hr - Dr. Mccrary consulted - Oxycontin 10mg BID - Family considering L spine surgery but considering hip surgery by orthopedist - If can ambulate again, would dc with outpt followup - Neuro consult appreciated 3. HTN - Coreg 25 BID - Losartan 25 Daily 4. HLD - Lipitor 40 HS 5. Constipation - Relistor sqx1 - Dulcolax pr - 2 tabs Senna HS - Miralax daily - Colace TID 6. R hip severe degenerative changes - Scheduled for hip replacement 12/30, however given degree of decompensation no longer a candidate unless can become mobile again risk of DVT Problem List - Problems (1) Edema Code(s): R60.9 - EDEMA, UNSPECIFIED (2) Hypertension Code(s): I10 - ESSENTIAL (PRIMARY) HYPERTENSION Qualifiers: Hypertension type: essential hypertension Qualified Code(s): I10 - Essential (primary) hypertension (3) Intractable pain Code(s): R52 - PAIN, UNSPECIFIED (4) Leg pain, bilateral Code(s): M79.604 - PAIN IN RIGHT LEG M79.605 - PAIN IN LEFT LEG (5) Osteoarthritis, hip, bilateral Code(s): M16.0 - BILATERAL PRIMARY OSTEOARTHRITIS OF HIP Qualifiers: Osteoarthritis type: primary Qualified Code(s): M16.0 - Bilateral primary osteoarthritis of hip Visit type - Emergency Visit Emergency Visit: Yes ED Registration Date: 12/07/16 Care time: The patient presented to the Emergency Department on the above date and was hospitalized for further evaluation of their emergent condition. - New Patient This patient is new to me today: No - Critical Care Critical Care patient: No
--- NOTE | 2016-12-08 18:32 | PN ---
Progress Note (short form) - Note Progress Note: Vascular Surgery Pt seen and examined. Bilateral lower ext pitting edema. Pt claims this has been going on for 15 days. Both feet are warm. Pt needs leg elevation -- asked nurses to get relciner for pt since she cannot elevate legs due to hip pain. Nurses will wrap legs with gustavo bandages for compression. No vascular intervention needed. Jj Sandoval DO
[2016-12-08] MEDS ORDERED: PT OWN MED DRAWER 7, Y5N ONE (22:54)
[2016-12-08] MEDS: DEXAMETHASONE SOD PHOSPHATE 4 MG/1 ML VIAL IVPB SCH (23:00)
[2016-12-08] MEDS: ATORVASTATIN CA 10 MG TABLET (FP) PO SCH (23:01)
[2016-12-08] MEDS: SENNOSIDES 8.6MG TABLET (FP) PO SCH (23:02)
[2016-12-09] MEDS: DEXAMETHASONE SOD PHOSPHATE 4 MG/1 ML VIAL IVPB SCH ×2 (04:10→09:59)
[2016-12-09] MEDS: morphine CARPU-JECT 2 MG/1 ML DISP.SYRIN IVPUSH PRN (04:36)
[2016-12-09] MEDS: FUROSEMIDE 40 MG/4 ML INJECTABLE VIAL IVPUSH SCH ×2 (06:32→14:11)
[2016-12-09] MEDS: DOCUSATE SODIUM 100 MG CAPSULE (FP) PO SCH ×3 (06:48→22:57)
[2016-12-09 08:41] LABS: CALCIUM 9.7 mg/dL (8.5-10.1); COCKROFT - GAULT 71.1705; CREATININE 0.7 mg/dL (0.55-1.02); MAGNESIUM 2.1 mg/dL (1.8-2.4)
[2016-12-09] MEDS ORDERED: PT OWN MED DRAWER 7, Y5N ONE ×3 (09:55→22:48)
[2016-12-09] MEDS: oxyCODONE HCL 10 MG SUSTAINED ACTING TABLET PO SCH ×2 (10:09→22:57)
[2016-12-09] MEDS: CARVEDILOL 25 MG TABLET (FP) PO SCH ×2 (10:11→22:53)
[2016-12-09] MEDS: GABAPENTIN 300 MG CAPSULE (FP) PO SCH (10:11)
[2016-12-09] MEDS: LOSARTAN POTASSIUM 25 MG TABLET PO SCH (10:11)
[2016-12-09] MEDS: PRAMIPEXOLE DIHYDROCHLORIDE 0.5 MG TABLET PO SCH ×2 (10:12→22:58)
[2016-12-09] MEDS: PANTOPRAZOLE 40 MG TABLET (FP) PO SCH (10:12)
[2016-12-09] MEDS: ENOXAPARIN NA (PORCINE) 40 MG/0.4 ML DISP.SYRIN SQ SCH (10:13)
[2016-12-09] MEDS: POLYETHYLENE GLYCOL 3350 119 GM BTL PO SCH (10:15)
--- NOTE | 2016-12-09 12:54 | PN ---
Progress Note (short form) - Note Progress Note: Neurology History of Present Illness The patient is a 76 year old female, with a significant past medical history of hypertension, hyperlipidemia, sciatica, restless leg syndrome and osteoarthritis , who presents to the emergency department with worsening bilateral lower extremity swelling for the past week. The patient additionally reports right hip pain, but notes that this is a chronic issue, and Orthopedist, Dr. Ramos on the case. She is on chronic pain medication of oxycodone and completed MRI L spine which demonstrated multilevel disc bulging. She continues to report pain and has not been ambulatory due to her ongoing back pain. Pain mgmt has been consulted and she has been started on low dose steroids in hopes of improved symptoms. Physical therapy also ordered and may benefit from rehab placement. She reports continued discomfort and would like to pursue R hip surgery. She was in chair and moving freely and comfortable appearing. Active Medications Acetaminophen (Tylenol -) 650 mg PO Q4H PRN PRN Reason: FEVER OR PAIN Acetaminophen (Tylenol -) 325 mg PO Q4H PRN PRN Reason: PAIN Last Admin: 12/07/16 00:25 Dose: 325 mg Atorvastatin Calcium (Lipitor -) 10 mg PO HS [facility] Last Admin: 12/08/16 23:01 Dose: 10 mg Carvedilol (Coreg -) 25 mg PO BID [facility] Last Admin: 12/09/16 10:11 Dose: 25 mg Docusate Sodium (Colace -) 100 mg PO TID [facility] Last Admin: 12/09/16 06:48 Dose: Not Given Enoxaparin Sodium (Lovenox -) 40 mg SQ DAILY [facility] Last Admin: 12/09/16 10:13 Dose: 40 mg Furosemide (Lasix Injection -) 40 mg IVPUSH BID@0600,1400 [facility] Last Admin: 12/09/16 06:32 Dose: 40 mg Gabapentin (Neurontin -) 300 mg PO BID [facility] Last Admin: 12/09/16 10:11 Dose: 300 mg Losartan Potassium (Cozaar -) 25 mg PO DAILY [facility] Last Admin: 12/09/16 10:11 Dose: 25 mg Morphine Sulfate (Morphine Injection -) 1 mg IVPUSH Q4H PRN PRN Reason: PAIN Last Admin: 12/09/16 04:36 Dose: 1 mg Oxycodone HCl (Oxycontin -) 10 mg PO BID [facility] Last Admin: 12/09/16 10:09 Dose: 10 mg Oxycodone HCl (Roxicodone -) 5 mg PO Q4H PRN PRN Reason: PAIN Last Admin: 12/07/16 14:50 Dose: 5 mg Pantoprazole Sodium (Protonix -) 40 mg PO DAILY [facility] Last Admin: 12/09/16 10:12 Dose: 40 mg Polyethylene Glycol (Miralax (For Daily Use) -) 17 gm PO DAILY [facility] Last Admin: 12/09/16 10:15 Dose: Not Given Pramipexole Dihydrochloride (Mirapex -) 0.5 mg PO BID [facility] Last Admin: 12/09/16 10:12 Dose: 0.5 mg Senna (Senna -) 2 tab PO HS [facility] Last Admin: 12/08/16 23:02 Dose: Not Given *Physical Exam Vital Signs Temperature 98.1 F 12/09/16 10:06 Pulse Rate 88 12/09/16 10:06 Respiratory Rate 20 12/09/16 10:06 Blood Pressure 127/59 12/09/16 10:06 O2 Sat by Pulse Oximetry (%) 95 12/09/16 10:30 GENERAL: Awake, alert, and fully oriented, in no acute distress. HEAD: No signs of trauma. EYES: PERRLA, EOMI, sclera anicteric, conjunctiva clear. ENT: Auricles normal inspection, hearing grossly normal, nares patent, oropharynx clear without exudates. Moist mucosa. NECK: Normal ROM, supple, no lymphadenopathy, JVD, or masses. LUNGS: Breath sounds equal, clear to auscultation bilaterally. No wheezes, and no crackles. HEART: Regular rate and rhythm, normal S1 and S2, no murmurs, rubs or gallops. ABDOMEN: Soft, nontender, normoactive bowel sounds. No guarding, no rebound. No masses. EXTREMITIES: 2+ pitting edema to the mid villarreal, bilaterally. Normal range of motion. No clubbing or cyanosis. No cords, erythema, or tenderness. NEUROLOGICAL: Cranial nerves II through XII intact. Normal speech. Unable to ambulate secondary to pain. Gait deferred, reflexes 1+ SKIN: Warm, dry, normal turgor, no rashes or lesions noted. CBCD WBC 7.3 K/mm3 (4.0-10.0) 12/07/16 07:45 RBC 4.37 M/mm3 (3.60-5.2) 12/07/16 07:45 Hgb 13.3 GM/dL (10.7-15.3) 12/07/16 07:45 Hct 39.8 % (32.4-45.2) 12/07/16 07:45 MCV 91.0 fl (80-96) 12/07/16 07:45 MCHC 33.5 g/dl (32.0-36.0) 12/07/16 07:45 RDW 13.5 % (11.6-15.6) 12/07/16 07:45 Plt Count 271 K/MM3 (134-434) 12/07/16 07:45 MPV 7.1 fl (7.5-11.1) L 12/07/16 07:45 CMP Sodium 136 mmol/L (136-145) 12/08/16 06:15 Potassium 3.6 mmol/L (3.5-5.1) 12/08/16 06:15 Chloride 93 mmol/L (98-107) L 12/08/16 06:15 Carbon Dioxide 32 mmol/L (21-32) 12/08/16 06:15 Anion Gap 11 (8-16) 12/08/16 06:15 BUN 33 mg/dL (7-18) H D 12/08/16 06:15 Creatinine 0.8 mg/dL (0.55-1.02) 12/08/16 06:15 Creat Clearance w eGFR > 60 (>60) 12/06/16 11:43 Calcium 9.8 mg/dL (8.5-10.1) 12/08/16 06:15 Total Bilirubin 0.4 mg/dL (0.2-1.0) 12/06/16 11:43 AST 18 U/L (15-37) 12/06/16 11:43 ALT 20 U/L (12-78) 12/06/16 11:43 Alkaline Phosphatase 93 U/L (45-117) 12/06/16 11:43 Total Protein 6.8 g/dl (6.4-8.2) 12/06/16 11:43 Albumin 3.8 g/dl (3.4-5.0) 12/06/16 11:43 Medical Decision Making 76 year old female, with a significant past medical history of hypertension, hyperlipidemia, sciatica, restless leg syndrome and osteoarthritis, who presents to the emergency department with worsening bilateral lower extremity swelling for the past week. The patient additionally reports right hip pain, but notes that this is a chronic issue, and Orthopedist, Dr. Ramos on the case. She is on chronic pain medication of oxycodone and completed MRI L spine which demonstrated multilevel disc bulging. She continues to report pain and has not been ambulatory due to her ongoing back pain. Pain mgmt, consider epidural injections Ortho Follow up for possible hip intervention Physical therapy May require short term rehab Steroids for today and can discontinue Vascular consulted for Lower Ext edema Fall precaution
--- NOTE | 2016-12-09 15:30 | PN ---
Progress Note, Physician Chief Complaint: The patient is feeling much better. But the ambulatory status is still far from acceptable. The patient has h/o Hypertension, hyperlipidemia, severe O/A, and came in with severe hip pain and bilateral LE edema. The patient has Diastolic Heart failure. On IV Lasix and Cozaar. Ambulatory status is suboptimal. Need prolonged PT. - Current Medication List Current Medications: Active Medications Acetaminophen (Tylenol -) 650 mg PO Q4H PRN PRN Reason: FEVER OR PAIN Acetaminophen (Tylenol -) 325 mg PO Q4H PRN PRN Reason: PAIN Last Admin: 12/07/16 00:25 Dose: 325 mg Atorvastatin Calcium (Lipitor -) [address] [facility] Last Admin: 12/08/16 23:01 Dose: 10 mg Carvedilol (Coreg -) [address] [facility] Last Admin: 12/09/16 10:11 Dose: 25 mg Docusate Sodium (Colace -) [address] [facility] Last Admin: 12/09/16 14:19 Dose: Not Given Enoxaparin Sodium (Lovenox -) [address] [facility] Last Admin: 12/09/16 10:13 Dose: 40 mg Furosemide (Lasix Injection -) 40 mg IVPUSH BID@0600,1400 [facility] Last Admin: 12/09/16 14:11 Dose: 40 mg Gabapentin (Neurontin -) [address] [facility] Last Admin: 12/09/16 10:11 Dose: 300 mg Losartan Potassium (Cozaar -) [address] [facility] Last Admin: 12/09/16 10:11 Dose: 25 mg Morphine Sulfate (Morphine Injection -) 1 mg IVPUSH Q4H PRN PRN Reason: PAIN Last Admin: 12/09/16 04:36 Dose: 1 mg Oxycodone HCl (Oxycontin -) [address] [facility] Last Admin: 12/09/16 10:09 Dose: 10 mg Oxycodone HCl (Roxicodone -) 5 mg PO Q4H PRN PRN Reason: PAIN Last Admin: 12/07/16 14:50 Dose: 5 mg Pantoprazole Sodium (Protonix -) [address] [facility] Last Admin: 12/09/16 10:12 Dose: 40 mg Polyethylene Glycol (Miralax (For Daily Use) -) [address] [facility] Last Admin: 12/09/16 10:15 Dose: Not Given Pramipexole Dihydrochloride (Mirapex -) 0.[address] [facility] Last Admin: 12/09/16 10:12 Dose: 0.5 mg Senna (Senna -) [address] [facility] Last Admin: 12/08/16 23:02 Dose: Not Given - Objective Vital Signs: Vital Signs Temperature 98.1 F 12/09/16 10:06 Pulse Rate 83 12/09/16 14:09 Respiratory Rate 20 12/09/16 14:09 Blood Pressure 118/64 12/09/16 14:09 O2 Sat by Pulse Oximetry (%) 95 12/09/16 10:30 Constitutional: Yes: Calm, Anxious Eyes: Yes: WNL HENT: Yes: WNL Neck: Yes: WNL Cardiovascular: Yes: Regular Rate and Rhythm, S1, S2 Respiratory: Yes: Regular, CTA Bilaterally Gastrointestinal: Yes: Normal Bowel Sounds, Soft Genitourinary: Yes: WNL Breast(s): Yes: WNL Musculoskeletal: Yes: Back Pain, Joint Stiffness, Muscle Pain Edema: Yes Edema: LLE: 2+, RLE: 2+ Labs: CBC, BMP 12/09/16 07:00 Problem List - Problems (1) Intractable pain Code(s): R52 - PAIN, UNSPECIFIED (2) Leg pain, bilateral Code(s): M79.604 - PAIN IN RIGHT LEG M79.605 - PAIN IN LEFT LEG (3) Edema Code(s): R60.9 - EDEMA, UNSPECIFIED (4) Hypertension Code(s): I10 - ESSENTIAL (PRIMARY) HYPERTENSION Qualifiers: Hypertension type: essential hypertension Qualified Code(s): I10 - Essential (primary) hypertension (5) Osteoarthritis, hip, bilateral Code(s): M16.0 - BILATERAL PRIMARY OSTEOARTHRITIS OF HIP Qualifiers: Osteoarthritis type: primary Qualified Code(s): M16.0 - Bilateral primary osteoarthritis of hip (6) Diastolic heart failure Code(s): I50.30 - UNSPECIFIED DIASTOLIC (CONGESTIVE) HEART FAILURE Assessment/Plan 76 y/o female admitted with intractable pain and significant edema of the LE ( taty). The pain has improved. The ambulatory status is still suboptimal. The LE edema is also improving Given the lack of adequate ambulatory status, should consider short term rehab. Wll follow with you. Kay Rucker MD
--- NOTE | 2016-12-09 16:06 | PN ---
Physical Exam: SUBJECTIVE: Patient seen and examined. States she feels weak and still unable to ambulate Denies any chest pain or shortness of breath. OBJECTIVE: Vital Signs Period Temp Pulse Resp BP Sys/Naqvi Pulse Ox Last 24 Hr 98.1 F-98.8 F 78-95 18-20 118-153/59-76 95-96 GENERAL: The patient is awake, alert, and fully oriented, in no acute distress. HEAD: Normal with no signs of trauma. EYES: PERRL, extraocular movements intact, sclera anicteric, conjunctiva clear. No ptosis. ENT: Ears normal, nares patent, oropharynx clear without exudates, moist mucous membranes. NECK: Trachea midline, full range of motion, supple. LUNGS: Breath sounds equal, clear to auscultation bilaterally HEART: Regular rate and rhythm, S1, S2 without murmur, rub or gallop. ABDOMEN: Soft, nontender, nondistended, normoactive bowel sounds, no guarding, no rebound, no hepatosplenomegaly, no masses. EXTREMITIES: +2 edema on bilateral lower extremities. NEUROLOGICAL:Normal speech, gait not observed. PSYCH: Normal mood, normal affect. Laboratory Results - last 24 hr 12/09/16 07:00 Sodium 137 Potassium 3.6 Chloride 96 L Carbon Dioxide 30 Anion Gap 11 BUN 25 H D Creatinine 0.7 Random Glucose 155 H D Calcium 9.7 Magnesium 2.1 Active Medications Generic Name Dose Route Start Last Admin Trade Name Freq PRN Reason Stop Dose Admin Acetaminophen 650 mg 12/06/16 15:53 Tylenol - PO Q4H PRN FEVER OR PAIN Acetaminophen 325 mg 12/06/16 18:22 12/07/16 00:25 Tylenol - PO 325 mg Q4H PRN Administration PAIN Atorvastatin Calcium 10 mg 12/06/16 22:00 12/08/16 23:01 Lipitor - PO 10 mg HS [facility] Administration Carvedilol 25 mg 12/06/16 22:00 12/09/16 10:11 Coreg - PO 25 mg BID [facility] Administration Docusate Sodium 100 mg 12/06/16 22:00 12/09/16 14:19 Colace - PO Not Given TID [facility] Enoxaparin Sodium 40 mg 12/06/16 16:00 12/09/16 10:13 Lovenox - SQ 40 mg DAILY [facility] Administration Furosemide 40 mg 12/07/16 06:00 12/09/16 14:11 Lasix Injection - IVPUSH 40 mg BID@0600,1400 [facility] Administration Gabapentin 300 mg 12/06/16 22:00 12/09/16 10:11 Neurontin - PO 300 mg BID [facility] Administration Losartan Potassium 25 mg 12/07/16 10:00 12/09/16 10:11 Cozaar - PO 25 mg DAILY [facility] Administration Morphine Sulfate 1 mg 12/06/16 15:53 12/09/16 04:36 Morphine Injection - IVPUSH 1 mg Q4H PRN Administration PAIN Oxycodone HCl 10 mg 12/06/16 22:00 12/09/16 10:09 Oxycontin - PO 10 mg BID [facility] Administration Oxycodone HCl 5 mg 12/06/16 18:22 12/07/16 14:50 Roxicodone - PO 5 mg Q4H PRN Administration PAIN Pantoprazole Sodium 40 mg 12/08/16 11:15 12/09/16 10:12 Protonix - PO 40 mg DAILY [facility] Administration Polyethylene Glycol 17 gm 12/06/16 18:00 12/09/16 10:15 Miralax (For Daily Use) - PO Not Given DAILY [facility] Pramipexole Dihydrochloride 0.5 mg 12/06/16 22:00 12/09/16 10:12 Mirapex - PO 0.5 mg BID [facility] Administration Senna 2 tab 12/06/16 22:00 12/08/16 23:02 Senna - PO Not Given HS [facility] ASSESSMENT/PLAN: Patient is a 76 year old female who was admitted on 12/07/2016 with with intractable lower extremity pain and worsening bilateral lower extremity edema. She has a significant past medical history of hypertension, hyperlipidemia, sciatica, restless leg syndrome and osteoarthritis. Muscular/Skeletal: Bilateral Lower ext. edema- acute Assessment/Plan: On Lasix 40mg BID for edema May require short term rehab Steroids dose done today Vascular consulted for Lower Ext edema Fall precaution Physical therapy Bilateral leg pain/unable to ambulate Assessment/Plan: MRI lumbar spine with multilevel disc bulging Finished steriods today, Neuro followng Oxycodone for pain management Cardiology: Hypertension Assessment/Plan: On Coreg 25mg BID, Losartan 25 daily Monitor BP F.E.N. Fluids: Tolerating PO Electrolytes: monitor BMP Nutrition: regular diet Prophylaxis: GI: Protonix 40mg daily DVT: Lovenox 40mg daily Visit type - Emergency Visit Emergency Visit: Yes ED Registration Date: 12/07/16 Care time: The patient presented to the Emergency Department on the above date and was hospitalized for further evaluation of their emergent condition. - New Patient This patient is new to me today: Yes Date on this admission: 12/12/16 - Critical Care Critical Care patient: No - Discharge Referral Referred to [facility] No
[2016-12-09] MEDS: oxyCODONE HCL 5 MG TABLET PO PRN (16:56)
[2016-12-09] MEDS: ACETAMINOPHEN 325 MG TABLET (FP) PO PRN (16:59)
[2016-12-09] MEDS: SENNOSIDES 8.6MG TABLET (FP) PO SCH (22:54)
[2016-12-09] MEDS: ATORVASTATIN CA 10 MG TABLET (FP) PO SCH (22:54)
[2016-12-10] MEDS: morphine CARPU-JECT 2 MG/1 ML DISP.SYRIN IVPUSH PRN ×3 (06:14→17:21)
[2016-12-10] MEDS: DOCUSATE SODIUM 100 MG CAPSULE (FP) PO SCH ×3 (06:15→23:04)
[2016-12-10] MEDS: FUROSEMIDE 40 MG/4 ML INJECTABLE VIAL IVPUSH SCH ×2 (06:15→15:21)
--- NOTE | 2016-12-10 06:29 | CONS ---
DATE OF CONSULTATION: 12/09/2016 DATE OF ADMISSION: 12/07/2016 REFERRING PHYSICIAN: Will Ramos MD HISTORY OF PRESENT ILLNESS: The patient is a 76-year-old woman with past medical history of right hip osteoarthritis as well as lumbar stenosis who was admitted with 2 to 3 weeks of difficulty walking due to lower extremity pain. Patient apparently has had problems with sciatic pain in the distant past and was treated with gabapentin with some level of improvement at the time. Recently, she has been having more problems with her right hip and was diagnosed with severe right hip osteoarthritis. She was followed by Pain Management, Dr. Young, who was giving her cortisone injections in the hip joint per her daughter. These worked at first, but lately there has been less success and she was followed by Dr. Ramos and scheduled for right total hip replacement on December 30, 2016. Patient was seen by Dr. Ramos and an MRI was again obtained which showed multilevel L3-4 and L4-5 moderate canal stenosis. Patient is maintained on gabapentin 300 mg twice a day but per her daughter over the last month when this was started has developed swelling in the lower extremities. She has undergone Doppler, the ultrasound which was negative for deep venous thrombosis, and has also undergone lower extremity arterial duplex which showed mild atherosclerotic disease without any evidence of occlusion. Patient's blood work has remained stable. CBC on admission: WBC is 7.6, hemoglobin 13.1, and platelet count 256. Patient has normal chemistry: Sodium 139, potassium 3.9, chloride 102, CO2 29, BUN 20, creatinine 0.6. Repeat blood work fairly stable. Patient states she has no pain when sitting, but when she stands she gets pain radiating down both lower extremities which can also occur if she lies down at night. Sitting is the best position. She is on Lovenox for deep venous thrombosis prophylaxis and other imaging included an x-ray which showed right hip severe osteoarthritis. She does get some pain up near the right hip, but mostly the pain is radiating down the right more than left lower limb. She was seen by Physical Therapy both 2 days ago as well as today and was able to ambulate with a walker but with significant pain. REVIEW OF PAST MEDICAL AND SURGICAL HISTORY: Hypertension, hyperlipidemia, left total hip replacement, asthma, obstructive sleep apnea syndrome, pulmonary fibrosis, pulmonary embolism, right hip osteoarthritis, lumbar stenosis. SOCIAL HISTORY: Lives with her who is a retired physician in an apartment. There is an elevator for access. Patient states that prior to the onset of this pain she was able to ambulate with a cane or without assistive device for shorter distances. REVIEW OF SYSTEMS: No current lightheadedness, but she does get lightheaded, possibly from medication. No blurry vision or dull vision. No headache. No nausea, vomiting, difficulty swallowing, difficulty chewing. No chest pain or shortness of breath. No dyspnea on exertion, cough, or abdominal pain. She has no bowel or bladder complaints. She was constipated for about a week but has undergone laxatives and is doing well. She has no numbness, tingling, weakness in the upper extremities. Again, she does get pain, numbness, tingling down both lower extremities. Currently none in a sitting position. She has mild weakness of the right hip girdle and stiffness in the right hip girdle but no complaints of any back pain. She gets buttock pain where the pain starts and radiates to the lower extremities. PHYSICAL EXAMINATION: General: Slightly overweight woman seen sitting out of bed in a chair in no acute distress. HEENT: She is normocephalic and atraumatic. Extraocular muscles appear intact. Neck: Supple with good cervical range. Extremities: She has +2 edema in both lower extremities. No calf tenderness. Skin: Intact. Neuromuscular: She is awake, alert, oriented x3. Cranial nerves II-XII are grossly intact. She has good range and strength throughout her upper extremities and fairly good distal strength throughout both lower extremities but decreased internal rotation of the right hip with pain and the left hip has normal or fairly normal range of motion, good knee flexion and extension. Depressed reflexes in the lower extremities. Normal sensation to pinprick. Unable to ambulate her at this time due to no assistive device and pain with attempted standing. OVERALL IMPRESSION: 1. Deficits of mobility and activities of daily living. 2. Lumbar stenosis with right more than left lumbosacral radiculopathy. 3. Underlying right hip osteoarthritis with a tentative plan for right total hip replacement December [address] Will Ramos. 4. Edema, most likely due to fluid retention from gabapentin which she started about a month ago when the fluid retention started. 5. History of left total hip replacement. 6. Elevated risk for deep venous thrombosis with a history of pulmonary embolism. 7. Obstructive sleep apnea syndrome. 8. Asthma and pulmonary fibrosis. 9. Hypertension. 10. Hyperlipidemia. PLAN, SUGGESTIONS: 1. Attempted to contact patient's prior pain management physician, but he is no longer on staff here at [facility]. 2. Would recommend pain management evaluation for possible lumbar epidural steroid injection. Will have to see which pain management physicians are available. 3. Discontinue gabapentin. 4. Continue physical therapy. 5. Continue Lovenox for now but consider stopping once she has been evaluated if she is a candidate for a lumbar epidural steroid injection. 6. Follow up with Dr. Ramos as directed. 7. Elevation of the lower extremities. 8. Pranay wrap, lower extremities. 9. Consider transition to REVA stockings. 10. Skin precautions. 11. Monitor her for further constipation. Continue bowel regimen while patient is getting pain medication. Continue MiraLAX and Colace. 12. Consider short-term rehabilitation and snf facility. Thank you for this referral. REGINALD ALEXIS M.D. [id number]
[2016-12-10 07:33] LABS: BASOPHIL 0.6 % (0-2.0); EOSINOPHIL 0.2 % (0-4.5); MCH 30.6 pg (25.7-33.7); MCHC 34.1 g/dl (32.0-36.0); MEAN CELL VOLUME 89.8 fl (80-96); MEAN PLT VOLUME 7.7 fl (7.5-11.1); NEUTROPHILS 51.5 % (42.8-82.8); PLATELET COUNT 289 K/MM3 (134-434); RDW 13.1 % (11.6-15.6); WHITE BLOOD COUNT 11.7 K/mm3 (4.0-10.0)
[2016-12-10 07:47] LABS: ANION GAP 13 (8-16); BILIRUBIN,TOTAL 0.7 mg/dL (0.2-1.0); CALCIUM 9.8 mg/dL (8.5-10.1); CO2 31 mmol/L (21-32); CREATININE 0.8 mg/dL (0.55-1.02); GLUCOSE,RANDOM 110 mg/dL (74-106); SGOT/AST 20 U/L (15-37); SGPT/ALT 28 U/L (12-78)
[2016-12-10 07:48] LABS: ALK PHOS 97 U/L (45-117); TOT PROT 7.5 g/dl (6.4-8.2)
[2016-12-10] MEDS: ENOXAPARIN NA (PORCINE) 40 MG/0.4 ML DISP.SYRIN SQ SCH (09:30)
[2016-12-10] MEDS: CARVEDILOL 25 MG TABLET (FP) PO SCH ×2 (09:30→23:04)
[2016-12-10] MEDS: oxyCODONE HCL 10 MG SUSTAINED ACTING TABLET PO SCH ×2 (09:30→23:05)
[2016-12-10] MEDS: PANTOPRAZOLE 40 MG TABLET (FP) PO SCH (09:30)
[2016-12-10] MEDS: LOSARTAN POTASSIUM 25 MG TABLET PO SCH (09:30)
[2016-12-10] MEDS: POLYETHYLENE GLYCOL 3350 119 GM BTL PO SCH (09:34)
[2016-12-10] MEDS ORDERED: POTASSIUM CHLORIDE ORAL LIQUID 20 MEQ/15 ML PO ONE (09:50)
[2016-12-10] MEDS: CYCLOBENZAPRINE HCL 10 MG TABLET (FP) PO SCH ×3 (10:40→23:04)
[2016-12-10] MEDS: PRAMIPEXOLE DIHYDROCHLORIDE 0.5 MG TABLET PO SCH ×2 (10:41→23:05)
--- NOTE | 2016-12-10 11:41 | PN ---
Progress Note (short form) - Note Progress Note: Neurology History of Present Illness The patient is a 76 year old female, with a significant past medical history of hypertension, hyperlipidemia, sciatica, restless leg syndrome and osteoarthritis , who presents to the emergency department with worsening bilateral lower extremity swelling for the past week. The patient additionally reports right hip pain, but notes that this is a chronic issue, and Orthopedist, Dr. Ramos on the case. She is on chronic pain medication of oxycodone and completed MRI L spine which demonstrated multilevel disc bulging. She continues to report pain and has not been ambulatory due to her ongoing back pain. Pain mgmt has been consulted and she has been started on low dose steroids in hopes of improved symptoms. Physical therapy also ordered and may benefit from rehab placement. She reports continued discomfort and would like to pursue R hip surgery. She was in chair and moving freely and comfortable appearing. Pain international marketing specialist to see patient today. Active Medications Acetaminophen (Tylenol -) 650 mg PO Q4H PRN PRN Reason: FEVER OR PAIN Acetaminophen (Tylenol -) 325 mg PO Q4H PRN PRN Reason: PAIN Last Admin: 12/09/16 16:59 Dose: 325 mg Atorvastatin Calcium (Lipitor -) 10 mg PO HS [facility] Last Admin: 12/09/16 22:54 Dose: 10 mg Carvedilol (Coreg -) 25 mg PO BID [facility] Last Admin: 12/10/16 09:30 Dose: 25 mg Cyclobenzaprine HCl (Flexeril -) 10 mg PO TID [facility] Last Admin: 12/10/16 10:40 Dose: 10 mg Docusate Sodium (Colace -) 100 mg PO TID [facility] Last Admin: 12/10/16 06:15 Dose: 100 mg Enoxaparin Sodium (Lovenox -) 40 mg SQ DAILY [facility] Last Admin: 12/10/16 09:30 Dose: 40 mg Furosemide (Lasix Injection -) 40 mg IVPUSH BID@0600,1400 [facility] Last Admin: 12/10/16 06:15 Dose: 40 mg Losartan Potassium (Cozaar -) 25 mg PO DAILY [facility] Last Admin: 12/10/16 09:30 Dose: 25 mg Morphine Sulfate (Morphine Injection -) 1 mg IVPUSH Q4H PRN PRN Reason: PAIN Last Admin: 12/10/16 06:14 Dose: 1 mg Oxycodone HCl (Oxycontin -) 10 mg PO BID [facility] Last Admin: 12/10/16 09:30 Dose: 10 mg Pantoprazole Sodium (Protonix -) 40 mg PO DAILY [facility] Last Admin: 12/10/16 09:30 Dose: 40 mg Polyethylene Glycol (Miralax (For Daily Use) -) 17 gm PO DAILY [facility] Last Admin: 12/10/16 09:34 Dose: Not Given Pramipexole Dihydrochloride (Mirapex -) 0.5 mg PO BID [facility] Last Admin: 12/10/16 10:41 Dose: 0.5 mg Senna (Senna -) 2 tab PO HS [facility] Last Admin: 12/09/16 22:54 Dose: 2 tab *Physical Exam Vital Signs Temperature 97.7 F 12/10/16 06:00 Pulse Rate 79 12/10/16 06:00 Respiratory Rate 20 12/10/16 06:00 Blood Pressure 138/57 12/10/16 06:00 O2 Sat by Pulse Oximetry (%) 95 12/09/16 21:00 GENERAL: Awake, alert, and fully oriented, in no acute distress. HEAD: No signs of trauma. EYES: PERRLA, EOMI, sclera anicteric, conjunctiva clear. ENT: Auricles normal inspection, hearing grossly normal, nares patent, oropharynx clear without exudates. Moist mucosa. NECK: Normal ROM, supple, no lymphadenopathy, JVD, or masses. LUNGS: Breath sounds equal, clear to auscultation bilaterally. No wheezes, and no crackles. HEART: Regular rate and rhythm, normal S1 and S2, no murmurs, rubs or gallops. ABDOMEN: Soft, nontender, normoactive bowel sounds. No guarding, no rebound. No masses. EXTREMITIES: 2+ pitting edema to the mid villarreal, bilaterally. Normal range of motion. No clubbing or cyanosis. No cords, erythema, or tenderness. NEUROLOGICAL: Cranial nerves II through XII intact. Normal speech. Unable to ambulate secondary to pain. Gait deferred, reflexes 1+ SKIN: Warm, dry, normal turgor, no rashes or lesions noted. CBCD WBC 11.7 K/mm3 (4.0-10.0) H D 12/10/16 06:15 RBC 4.54 M/mm3 (3.60-5.2) 12/10/16 06:15 Hgb 13.9 GM/dL (10.7-15.3) 12/10/16 06:15 Hct 40.8 % (32.4-45.2) 12/10/16 06:15 MCV 89.8 fl (80-96) 12/10/16 06:15 MCHC 34.1 g/dl (32.0-36.0) 12/10/16 06:15 RDW 13.1 % (11.6-15.6) 12/10/16 06:15 Plt Count 289 K/MM3 (134-434) 12/10/16 06:15 MPV 7.7 fl (7.5-11.1) 12/10/16 06:15 CMP Sodium 137 mmol/L (136-145) 12/10/16 06:15 Potassium 3.3 mmol/L (3.5-5.1) L 12/10/16 06:15 Chloride 93 mmol/L (98-107) L 12/10/16 06:15 Carbon Dioxide 31 mmol/L (21-32) 12/10/16 06:15 Anion Gap 13 (8-16) 12/10/16 06:15 BUN 31 mg/dL (7-18) H D 12/10/16 06:15 Creatinine 0.8 mg/dL (0.55-1.02) 12/10/16 06:15 Creat Clearance w eGFR > 60 (>60) 12/10/16 06:15 Calcium 9.8 mg/dL (8.5-10.1) 12/10/16 06:15 Total Bilirubin 0.7 mg/dL (0.2-1.0) D 12/10/16 06:15 AST 20 U/L (15-37) 12/10/16 06:15 ALT 28 U/L (12-78) D 12/10/16 06:15 Alkaline Phosphatase 97 U/L (45-117) 12/10/16 06:15 Total Protein 7.5 g/dl (6.4-8.2) 12/10/16 06:15 Albumin 4.0 g/dl (3.4-5.0) 12/10/16 06:15 Medical Decision Making 76 year old female, with a significant past medical history of hypertension, hyperlipidemia, sciatica, restless leg syndrome and osteoarthritis, who presents to the emergency department with worsening bilateral lower extremity swelling for the past week. The patient additionally reports right hip pain, but notes that this is a chronic issue, and Orthopedist, Dr. Ramos on the case. She is on chronic pain medication of oxycodone and completed MRI L spine which demonstrated multilevel disc bulging. She continues to report pain and has not been ambulatory due to her ongoing back pain. Pain mgmt, consider epidural injections, to be seen today Ortho Follow up for possible hip intervention Physical therapy Short course of decadron completed Vascular consulted for Lower Ext edema Fall precaution May require short term rehab No further rec'd at this time
[2016-12-10] MEDS ORDERED: oxyCODONE HCL 10 MG SUSTAINED ACTING TABLET PO PRN (17:11)
--- NOTE | 2016-12-10 17:32 | PN ---
Physical Exam: SUBJECTIVE: Patient seen and examined. States she is still having alot of pain from her right hip. OBJECTIVE: Flexiril added by pain management Increased Morphine to 2mg Added Lidoderm patch to right hip Vital Signs Period Temp Pulse Resp BP Sys/Naqvi Pulse Ox Last 24 Hr 97.7 F-98.1 F 77-83 18-20 99-152/57-89 95-96 GENERAL: The patient is awake, alert, and fully oriented, in no acute distress. HEAD: Normal with no signs of trauma. EYES: PERRL, extraocular movements intact, sclera anicteric, conjunctiva clear. No ptosis. ENT: Ears normal, nares patent, oropharynx clear without exudates, moist mucous membranes. NECK: Trachea midline, full range of motion, supple. LUNGS: Breath sounds equal, clear to auscultation bilaterally HEART: Regular rate and rhythm, S1, S2 without murmur, rub or gallop. ABDOMEN: Soft, nontender, nondistended, normoactive bowel sounds, no guarding, no rebound, no hepatosplenomegaly, no masses. EXTREMITIES: +2 edema on bilateral lower extremities. NEUROLOGICAL:Normal speech, gait not observed. PSYCH: Normal mood, normal affect. Laboratory Results - last 24 hr 12/10/16 12/10/16 06:15 06:15 WBC 11.7 H D RBC 4.54 Hgb 13.9 Hct 40.8 MCV 89.8 MCHC 34.1 RDW 13.1 Plt Count 289 MPV 7.7 Neutrophils % 51.5 D Lymphocytes % 39.1 Monocytes % 8.6 Eosinophils % 0.2 Basophils % 0.6 Sodium 137 Potassium 3.3 L Chloride 93 L Carbon Dioxide 31 Anion Gap 13 BUN 31 H D Creatinine 0.8 Creat Clearance w eGFR > 60 Random Glucose 110 H D Calcium 9.8 Total Bilirubin 0.7 D AST 20 ALT 28 D Alkaline Phosphatase 97 Total Protein 7.5 Albumin 4.0 Active Medications Generic Name Dose Route Start Last Admin Trade Name Freq PRN Reason Stop Dose Admin Acetaminophen 650 mg 12/06/16 15:53 Tylenol - PO Q4H PRN FEVER OR PAIN Acetaminophen 325 mg 12/06/16 18:22 12/09/16 16:59 Tylenol - PO 325 mg Q4H PRN Administration PAIN Atorvastatin Calcium 10 mg 12/06/16 22:00 12/09/16 22:54 Lipitor - PO 10 mg HS [facility] Administration Carvedilol 25 mg 12/06/16 22:00 12/10/16 09:30 Coreg - PO 25 mg BID [facility] Administration Cyclobenzaprine HCl 10 mg 12/10/16 10:00 12/10/16 15:21 Flexeril - PO 10 mg TID [facility] Administration Docusate Sodium 100 mg 12/06/16 22:00 12/10/16 15:21 Colace - PO 100 mg TID [facility] Administration Enoxaparin Sodium 40 mg 12/06/16 16:00 12/10/16 09:30 Lovenox - SQ 40 mg DAILY [facility] Administration Furosemide 40 mg 12/07/16 06:00 12/10/16 15:21 Lasix Injection - IVPUSH 40 mg BID@0600,1400 [facility] Administration Lidocaine 1 patch 12/10/16 17:30 Lidoderm Patch - TP DAILY [facility] Losartan Potassium 25 mg 12/07/16 10:00 12/10/16 09:30 Cozaar - PO 25 mg DAILY [facility] Administration Morphine Sulfate 2 mg 12/10/16 17:28 Morphine Injection - IVPUSH Q4H PRN PAIN Oxycodone HCl 10 mg 12/10/16 17:11 Oxycontin - PO Q6HPO PRN MODERATE PAIN Pantoprazole Sodium 40 mg 12/08/16 11:15 12/10/16 09:30 Protonix - PO 40 mg DAILY [facility] Administration Polyethylene Glycol 17 gm 12/06/16 18:00 12/10/16 09:34 Miralax (For Daily Use) - PO Not Given DAILY [facility] Pramipexole Dihydrochloride 0.5 mg 12/06/16 22:00 12/10/16 10:41 Mirapex - PO 0.5 mg BID [facility] Administration Senna 2 tab 12/06/16 22:00 12/09/16 22:54 Senna - PO 2 tab HS [facility] Administration ASSESSMENT/PLAN: Patient is a 76 year old female who was admitted on 12/07/2016 with with intractable lower extremity pain and worsening bilateral lower extremity edema. She has a significant past medical history of hypertension, hyperlipidemia, sciatica, restless leg syndrome and osteoarthritis. Muscular/Skeletal: Bilateral leg pain/unable to ambulate Assessment/Plan: Pain from right hip radiates down to right leg MRI lumbar spine with multilevel disc bulging Completed steriods dose yesterday Neuro followng Oxycontin BID for pain management Morphine increased to 2mg, Flexiril added by pain management Lidoderm patch to right hip Bilateral Lower ext. edema- improving Assessment/Plan: On Lasix 40mg BID for edema May require short term rehab Vascular following for Lower Ext edema Fall precaution, Physical therapy Cardiology: Hypertension Assessment/Plan: On Coreg 25mg BID, Losartan 25 daily Monitor BP F.E.N. Fluids: Tolerating PO Electrolytes: monitor BMP Nutrition: regular diet Prophylaxis: GI: Protonix 40mg daily DVT: Lovenox 40mg daily Disposition: Continues to require inpatient hospitalization. Full Code. Visit type - Emergency Visit Emergency Visit: Yes ED Registration Date: 12/07/16 Care time: The patient presented to the Emergency Department on the above date and was hospitalized for further evaluation of their emergent condition. - New Patient This patient is new to me today: No - Critical Care Critical Care patient: No - Discharge Referral Referred to [facility] Med P.C.: No
--- NOTE | 2016-12-10 19:03 | CONSULT ---
Consult Consult Specialty:: Pain Management Reason for Consultation:: Rt Hip pain and difficulty in ambulation. - History of Present Illness Chief Complaint: Hip pain on rigth History of Present Illness: 76 yr old female c/o Right hip pain and difficulty in ambulation . Pain 10/10 on standing and less pain on sitting. She is schedule for TRT THR on 12/30. - History Source History Provided By: Patient - Past Medical History Cardio/Vascular: Yes: HTN, Hyperlipdemia Pulmonary: Yes: Other. No: Asthma, Bronchitis, Cancer, COPD, O2 Dependent, Pneumonia, Previously Intubated, Pulmonary Embolus, Pulmonary Fibrosis, Sleep Apnea Gastrointestinal: No: Ascites, Crohn's Disease, Pancreatitis Hepatobiliary: No: Cirrhosis, Cholelithiasis Renal/: No: Renal Failure Musculoskeletal: Yes: Osteoarthritis Rheumatology: Yes: Other (Osteoarthritis) Endocrine: No: Diabetes Mellitus, Hyperparathyroidism, Hypothyroidism - Past Surgical History Past Surgical History: Yes: Joint Replacement (left HIP ) - Alcohol/Substance Use Hx Alcohol Use: No History of Substance Use: reports: None - Smoking History Smoking history: Never smoked - Social History ADL: Independent Home Medications - Allergies Allergies/Adverse Reactions: Allergies Allergy/AdvReac Type Severity Reaction Status Date / Time Penicillins Allergy Itching Verified 12/06/16 10:45 - Home Medications Home Medications: Ambulatory Orders Aspirin [ASA -] 81 mg PO DAILY 12/06/16 Atorvastatin Ca [Lipitor] 10 mg PO HS 12/06/16 Carvedilol [Coreg -] 25 mg PO BID 12/06/16 Gabapentin [Neurontin -] 300 mg PO BID 12/06/16 Losartan Potassium 25 mg PO DAILY 12/06/16 Oxycodone HCl/Acetaminophen [Percocet 5-325 mg Tablet] 1 tab PO Q4H PRN Oxycodone Sr [Oxycontin] 0 mg PO BID 12/06/16 Pramipexole Di-HCl [Mirapex] 0.5 mg PO BID 12/06/16 Review of Systems - Review of Systems Constitutional: reports: No Symptoms Eyes: reports: No Symptoms HENT: reports: No Symptoms Neck: reports: No Symptoms Gastrointestinal: reports: No Symptoms Genitourinary: reports: No Symptoms Musculoskeletal: reports: Other (Rt Hip pain) Neurological: reports: No Symptoms Psychiatric: reports: No Symptoms Pain Intensity: 10 Physical Exam Vital Signs: Vital Signs Temperature 98.1 F 12/10/16 15:47 Pulse Rate 77 12/10/16 15:47 Respiratory Rate 18 12/10/16 15:47 Blood Pressure 99/68 12/10/16 15:47 O2 Sat by Pulse Oximetry (%) 96 12/10/16 09:00 Constitutional: Yes: Anxious Eyes: Yes: WNL HENT: Yes: WNL Neck: Yes: WNL Musculoskeletal: Yes: Back Pain Extremities: Yes: Internal Rotation (Rt Hip pain .) Neurological: Yes: WNL ...Motor Strength: WNL (except right hip - strength decrease due to apin) Labs: CBC, BMP 12/10/16 06:15 12/10/16 06:15 Current Medications Generic Name Dose Route Start Last Admin Trade Name Freq PRN Reason Stop Dose Admin Acetaminophen 650 mg 12/06/16 15:53 Tylenol - PO Q4H PRN FEVER OR PAIN Acetaminophen 325 mg 12/06/16 18:22 12/09/16 16:59 Tylenol - PO 325 mg Q4H PRN Administration PAIN Atorvastatin Calcium 10 mg 12/06/16 22:00 12/09/16 22:54 Lipitor - PO 10 mg HS [facility] Administration Carvedilol 25 mg 12/06/16 22:00 12/10/16 09:30 Coreg - PO 25 mg BID [facility] Administration Cyclobenzaprine HCl 10 mg 12/10/16 10:00 12/10/16 15:21 Flexeril - PO 10 mg TID [facility] Administration Docusate Sodium 100 mg 12/06/16 22:00 12/10/16 15:21 Colace - PO 100 mg TID [facility] Administration Enoxaparin Sodium 40 mg 12/06/16 16:00 12/10/16 09:30 Lovenox - SQ 40 mg DAILY [facility] Administration Furosemide 40 mg 12/07/16 06:00 12/10/16 15:21 Lasix Injection - IVPUSH 40 mg BID@0600,1400 [facility] Administration Lidocaine 1 patch 12/10/16 17:30 Lidoderm Patch - TP DAILY [facility] Losartan Potassium 25 mg 12/07/16 10:00 12/10/16 09:30 Cozaar - PO 25 mg DAILY [facility] Administration Morphine Sulfate 2 mg 12/10/16 17:28 Morphine Injection - IVPUSH Q4H PRN PAIN Oxycodone HCl 10 mg 12/10/16 22:00 Oxycontin - PO BID [facility] Pantoprazole Sodium 40 mg 12/08/16 11:15 12/10/16 09:30 Protonix - PO 40 mg DAILY [facility] Administration Polyethylene Glycol 17 gm 12/06/16 18:00 12/10/16 09:34 Miralax (For Daily Use) - PO Not Given DAILY [facility] Pramipexole Dihydrochloride 0.5 mg 12/06/16 22:00 12/10/16 10:41 Mirapex - PO 0.5 mg BID [facility] Administration Senna 2 tab 12/06/16 22:00 12/09/16 22:54 Senna - PO 2 tab HS [facility] Administration Laboratory Results - last 24 hr 12/10/16 12/10/16 06:15 06:15 WBC 11.7 H D RBC 4.54 Hgb 13.9 Hct 40.8 MCV 89.8 MCHC 34.1 RDW 13.1 Plt Count 289 MPV 7.7 Neutrophils % 51.5 D Lymphocytes % 39.1 Monocytes % 8.6 Eosinophils % 0.2 Basophils % 0.6 Sodium 137 Potassium 3.3 L Chloride 93 L Carbon Dioxide 31 Anion Gap 13 BUN 31 H D Creatinine 0.8 Creat Clearance w eGFR > 60 Random Glucose 110 H D Calcium 9.8 Total Bilirubin 0.7 D AST 20 ALT 28 D Alkaline Phosphatase 97 Total Protein 7.5 Albumin 4.0 Imaging - Results X-ray: Report Reviewed MRI: Report Reviewed Problem List - Problems (1) Primary osteoarthritis of right hip Assessment/Plan: Orthopedic follow up Code(s): M16.11 - UNILATERAL PRIMARY OSTEOARTHRITIS, RIGHT HIP (2) Difficulty in walking Assessment/Plan: Follow up with orthopedics possibly THR Code(s): R26.2 - DIFFICULTY IN WALKING, NOT ELSEWHERE CLASSIFIED (3) Degenerative lumbar spinal stenosis Assessment/Plan: Lumbar epidural Code(s): M48.06 - SPINAL STENOSIS, LUMBAR REGION Assessment/Plan Discussed in detail and answered all question. She has multiple joint severe OA and pain may be originating more likely from hip than Back. 1. continue current medication. 2. medication was changed today so I do not like to increase again. if no improvement , we may consider to increase narcotics. Physical therapy to be continued. Thanks Dr. Hopkins [phone]
[2016-12-10] MEDS: LIDOCAINE 5% TOPICAL PATCH TP SCH (19:33)
--- NOTE | 2016-12-10 22:26 | PN ---
Progress Note (short form) - Note Progress Note: chart reviewed right hip djd diastolic hf/ s/p pulm edema decadron for pain- to taper Current Medications Acetaminophen (Tylenol -) 650 mg PO Q4H PRN PRN Reason: FEVER OR PAIN Acetaminophen (Tylenol -) 325 mg PO Q4H PRN PRN Reason: PAIN Last Admin: 12/09/16 16:59 Dose: 325 mg Atorvastatin Calcium (Lipitor -) 10 mg PO HS [facility] Last Admin: 12/09/16 22:54 Dose: 10 mg Carvedilol (Coreg -) 25 mg PO BID [facility] Last Admin: 12/10/16 09:30 Dose: 25 mg Cyclobenzaprine HCl (Flexeril -) 10 mg PO TID [facility] Last Admin: 12/10/16 15:21 Dose: 10 mg Docusate Sodium (Colace -) 100 mg PO TID [facility] Last Admin: 12/10/16 15:21 Dose: 100 mg Enoxaparin Sodium (Lovenox -) 40 mg SQ DAILY [facility] Last Admin: 12/10/16 09:30 Dose: 40 mg Furosemide (Lasix Injection -) 40 mg IVPUSH BID@0600,1400 [facility] Last Admin: 12/10/16 15:21 Dose: 40 mg Lidocaine (Lidoderm Patch -) 1 patch TP DAILY [facility] Last Admin: 12/10/16 19:33 Dose: 1 patch Losartan Potassium (Cozaar -) 25 mg PO DAILY [facility] Last Admin: 12/10/16 09:30 Dose: 25 mg Morphine Sulfate (Morphine Injection -) 2 mg IVPUSH Q4H PRN PRN Reason: PAIN Oxycodone HCl (Oxycontin -) 10 mg PO BID [facility] Pantoprazole Sodium (Protonix -) 40 mg PO DAILY [facility] Last Admin: 12/10/16 09:30 Dose: 40 mg Polyethylene Glycol (Miralax (For Daily Use) -) 17 gm PO DAILY [facility] Last Admin: 12/10/16 09:34 Dose: Not Given Pramipexole Dihydrochloride (Mirapex -) 0.5 mg PO BID [facility] Last Admin: 12/10/16 10:41 Dose: 0.5 mg Senna (Senna -) 2 tab PO HS [facility] Last Admin: 12/09/16 22:54 Dose: 2 tab Last Vital Signs Temp Pulse Resp BP Pulse Ox 98.3 F 84 20 113/41 96 12/10/16 18:00 12/10/16 18:00 12/10/16 18:00 12/10/16 18:00 12/10/16 09:00 CBC, BMP 12/10/16 06:15 12/10/16 06:15
[2016-12-10] MEDS: ATORVASTATIN CA 10 MG TABLET (FP) PO SCH (23:04)
[2016-12-10] MEDS: SENNOSIDES 8.6MG TABLET (FP) PO SCH (23:06)
[2016-12-11] MEDS: CYCLOBENZAPRINE HCL 10 MG TABLET (FP) PO SCH ×3 (06:18→21:44)
[2016-12-11] MEDS: DOCUSATE SODIUM 100 MG CAPSULE (FP) PO SCH ×3 (06:18→21:44)
[2016-12-11] MEDS: FUROSEMIDE 40 MG/4 ML INJECTABLE VIAL IVPUSH SCH ×2 (06:18→14:13)
[2016-12-11] MEDS: morphine CARPU-JECT 2 MG/1 ML DISP.SYRIN IVPUSH PRN ×4 (06:59→22:11)
[2016-12-11 08:35] LABS: MCH 30.4 pg (25.7-33.7); MCHC 33.4 g/dl (32.0-36.0); MEAN PLT VOLUME 7.4 fl (7.5-11.1); PLATELET COUNT 292 K/MM3 (134-434); RDW 13.4 % (11.6-15.6); WHITE BLOOD COUNT 8.6 K/mm3 (4.0-10.0)
[2016-12-11 08:56] LABS: ALBUMIN 4.4 g/dl (3.4-5.0); CALCIUM 9.8 mg/dL (8.5-10.1)
[2016-12-11 08:58] LABS: BILIRUBIN,TOTAL 0.5 mg/dL (0.2-1.0); COCKROFT - GAULT 49.8185; TOT PROT 7.6 g/dl (6.4-8.2)
[2016-12-11] MEDS ORDERED: PT OWN MED DRAWER 7, Y5N ONE (09:23)
[2016-12-11] MEDS: LIDOCAINE 5% TOPICAL PATCH TP SCH (09:29)
[2016-12-11] MEDS: PANTOPRAZOLE 40 MG TABLET (FP) PO SCH (09:30)
[2016-12-11] MEDS: ENOXAPARIN NA (PORCINE) 40 MG/0.4 ML DISP.SYRIN SQ SCH (09:30)
[2016-12-11] MEDS: CARVEDILOL 25 MG TABLET (FP) PO SCH ×2 (09:30→21:44)
[2016-12-11] MEDS: oxyCODONE HCL 10 MG SUSTAINED ACTING TABLET PO SCH ×2 (09:30→21:45)
[2016-12-11] MEDS: PRAMIPEXOLE DIHYDROCHLORIDE 0.5 MG TABLET PO SCH ×2 (09:31→21:46)
[2016-12-11] MEDS: LOSARTAN POTASSIUM 25 MG TABLET PO SCH (09:31)
[2016-12-11] MEDS: POLYETHYLENE GLYCOL 3350 119 GM BTL PO SCH (09:31)
[2016-12-11] MEDS: POTASSIUM CHLORIDE TABS 20 MEQ TABLET.ER (FP) PO SCH ×2 (09:31→21:44)
[2016-12-11] MEDS ORDERED: ACETAMINOPHEN 325 MG TABLET (FP) PO SCH (12:00)
[2016-12-11] MEDS: ACETAMINOPHEN 325 MG TABLET (FP) PO SCH ×2 (13:58→18:00)
--- NOTE | 2016-12-11 15:41 | PN ---
Physical Exam: SUBJECTIVE: Patient seen and examined. Patient states she is having some improvement of her right hip pain. OBJECTIVE: Flexiril added by pain management Increased Morphine to 2mg Added 2 Lidoderm patch to right hip Tylenol 650mg scheduled q 6 hours Appears slightly more comfortable today Vital Signs Period Temp Pulse Resp BP Sys/Naqvi Pulse Ox Last 24 Hr 97.7 F-98.5 F 73-84 18-20 99-143/41-81 94 GENERAL: The patient is awake, alert, and fully oriented, in no acute distress. HEAD: Normal with no signs of trauma. EYES: PERRL, extraocular movements intact, sclera anicteric, conjunctiva clear. No ptosis. ENT: Ears normal, nares patent, oropharynx clear without exudates, moist mucous membranes. NECK: Trachea midline, full range of motion, supple. LUNGS: Breath sounds equal, clear to auscultation bilaterally HEART: Regular rate and rhythm, S1, S2 without murmur, rub or gallop. ABDOMEN: Soft, nontender, nondistended, normoactive bowel sounds, no guarding, no rebound, no hepatosplenomegaly, no masses. EXTREMITIES: +2 edema on bilateral lower extremities. NEUROLOGICAL:Normal speech, gait not observed. PSYCH: Normal mood, normal affect. Laboratory Results - last 24 hr 12/11/16 12/11/16 07:30 07:30 WBC 8.6 RBC 4.70 Hgb 14.3 Hct 42.8 MCV 91.0 MCHC 33.4 RDW 13.4 Plt Count 292 MPV 7.4 L Neutrophils % 35.0 L D Lymphocytes % 45.0 H Monocytes % 10.0 Reactive Lymphocytes 10 Sodium 135 L Potassium 3.3 L Chloride 92 L Carbon Dioxide 33 H Anion Gap 10 BUN 37 H Creatinine 1.0 D Creat Clearance w eGFR 53.62 Random Glucose 112 H Calcium 9.8 Total Bilirubin 0.5 D AST 18 ALT 27 Alkaline Phosphatase 100 Total Protein 7.6 Albumin 4.4 Active Medications Generic Name Dose Route Start Last Admin Trade Name Freq PRN Reason Stop Dose Admin Acetaminophen 650 mg 12/11/16 12:00 12/11/16 13:58 Tylenol - PO 650 mg Q6H [facility] Administration Atorvastatin Calcium 10 mg 12/06/16 22:00 12/10/16 23:04 Lipitor - PO 10 mg HS [facility] Administration Carvedilol 25 mg 12/06/16 22:00 12/11/16 09:30 Coreg - PO 25 mg BID [facility] Administration Cyclobenzaprine HCl 10 mg 12/10/16 10:00 12/11/16 15:30 Flexeril - PO 10 mg TID [facility] Administration Docusate Sodium 100 mg 12/06/16 22:00 12/11/16 15:31 Colace - PO 100 mg TID [facility] Administration Enoxaparin Sodium 40 mg 12/06/16 16:00 12/11/16 09:30 Lovenox - SQ 40 mg DAILY [facility] Administration Furosemide 40 mg 12/07/16 06:00 12/11/16 14:13 Lasix Injection - IVPUSH 40 mg BID@0600,1400 [facility] Administration Lidocaine 2 patch 12/11/16 11:32 Lidoderm Patch - TP DAILY [facility] Losartan Potassium 25 mg 12/07/16 10:00 12/11/16 09:31 Cozaar - PO 25 mg DAILY [facility] Administration Morphine Sulfate 2 mg 12/10/16 17:28 12/11/16 11:30 Morphine Injection - IVPUSH 2 mg Q4H PRN Administration PAIN Oxycodone HCl 10 mg 12/10/16 22:00 12/11/16 09:30 Oxycontin - PO 10 mg BID [facility] Administration Pantoprazole Sodium 40 mg 12/08/16 11:15 12/11/16 09:30 Protonix - PO 40 mg DAILY [facility] Administration Polyethylene Glycol 17 gm 12/06/16 18:00 12/11/16 09:31 Miralax (For Daily Use) - PO Not Given DAILY [facility] Potassium Chloride 20 meq 12/11/16 10:00 12/11/16 09:31 K-Dur - PO 20 meq BID [facility] Administration Pramipexole Dihydrochloride 0.5 mg 12/06/16 22:00 12/11/16 09:31 Mirapex - PO 0.5 mg BID [facility] Administration Senna 2 tab 12/06/16 22:00 12/10/16 23:06 Senna - PO Not Given HS [facility] ASSESSMENT/PLAN: Patient is a 76 year old female who was admitted on 12/07/2016 with with intractable lower extremity pain and worsening bilateral lower extremity edema. She has a significant past medical history of hypertension, hyperlipidemia, sciatica, restless leg syndrome and osteoarthritis. Muscular/Skeletal: Bilateral leg pain/unable to ambulate Assessment/Plan: Pain from right hip radiates down to right leg with some improvement today with up titration of pain medications MRI lumbar spine with multilevel disc bulging Completed steroids dose two days ago Neuro following Oxycontin BID for pain management Morphine increased to 2mg, Flexiril added by pain management Lidoderm patch x 2 to right hip Tylenol 650mg scheduled q 6 hours Monitor pain levels and titrate meds up as needed Bilateral Lower ext. edema- improving Assessment/Plan: On Lasix 40mg BID for edema with scheduled Potassium supplements May require short term rehab Vascular following for Lower Ext edema Fall precaution, Physical therapy Cardiology: Hypertension Assessment/Plan: On Coreg 25mg BID, Losartan 25 daily Monitor BP F.E.N. Fluids: Tolerating PO Electrolytes: Hypokalemia repleted with Potassium 20MEQ BID Nutrition: regular diet Prophylaxis: GI: Protonix 40mg daily DVT: Lovenox 40mg daily Disposition: Continues to require inpatient hospitalization. Patient will to go [facility]. Full Code. Visit type - Emergency Visit Emergency Visit: Yes ED Registration Date: 12/07/16 Care time: The patient presented to the Emergency Department on the above date and was hospitalized for further evaluation of their emergent condition. - New Patient This patient is new to me today: No - Critical Care Critical Care patient: No - Discharge Referral Referred to [facility] Med P.C.: No
--- NOTE | 2016-12-11 16:22 | PN ---
Progress Note (short form) - Note Progress Note: pain controlled k 3.3 taking fluids ad jorden Active Medications Acetaminophen (Tylenol -) 650 mg PO Q6H [facility] Last Admin: 12/11/16 13:58 Dose: 650 mg Atorvastatin Calcium (Lipitor -) 10 mg PO HS [facility] Last Admin: 12/10/16 23:04 Dose: 10 mg Carvedilol (Coreg -) 25 mg PO BID [facility] Last Admin: 12/11/16 09:30 Dose: 25 mg Cyclobenzaprine HCl (Flexeril -) 10 mg PO TID [facility] Last Admin: 12/11/16 15:30 Dose: 10 mg Docusate Sodium (Colace -) 100 mg PO TID [facility] Last Admin: 12/11/16 15:31 Dose: 100 mg Enoxaparin Sodium (Lovenox -) 40 mg SQ DAILY [facility] Last Admin: 12/11/16 09:30 Dose: 40 mg Furosemide (Lasix Injection -) 40 mg IVPUSH BID@0600,1400 [facility] Last Admin: 12/11/16 14:13 Dose: 40 mg Lidocaine (Lidoderm Patch -) 2 patch TP DAILY [facility] Losartan Potassium (Cozaar -) 25 mg PO DAILY [facility] Last Admin: 12/11/16 09:31 Dose: 25 mg Morphine Sulfate (Morphine Injection -) 2 mg IVPUSH Q4H PRN PRN Reason: PAIN Last Admin: 12/11/16 11:30 Dose: 2 mg Oxycodone HCl (Oxycontin -) 10 mg PO BID [facility] Last Admin: 12/11/16 09:30 Dose: 10 mg Pantoprazole Sodium (Protonix -) 40 mg PO DAILY [facility] Last Admin: 12/11/16 09:30 Dose: 40 mg Polyethylene Glycol (Miralax (For Daily Use) -) 17 gm PO DAILY [facility] Last Admin: 12/11/16 09:31 Dose: Not Given Potassium Chloride (K-Dur -) 20 meq PO BID [facility] Last Admin: 12/11/16 09:31 Dose: 20 meq Pramipexole Dihydrochloride (Mirapex -) 0.5 mg PO BID [facility] Last Admin: 12/11/16 09:31 Dose: 0.5 mg Senna (Senna -) 2 tab PO HS [facility] Last Admin: 12/10/16 23:06 Dose: Not Given Last Vital Signs Temp Pulse Resp BP Pulse Ox 97.9 F 76 20 117/58 94 L 12/11/16 16:01 12/11/16 16:01 12/11/16 16:01 12/11/16 16:01 12/11/16 09:00 lungs clear heart reg rate and rhythm abd soft exr no edema CBC, BMP 12/11/16 07:30 12/11/16 07:30 IMP- k replaced
[2016-12-11] MEDS: SENNOSIDES 8.6MG TABLET (FP) PO SCH (21:44)
[2016-12-11] MEDS: ATORVASTATIN CA 10 MG TABLET (FP) PO SCH (21:44)
[2016-12-12] MEDS: CYCLOBENZAPRINE HCL 10 MG TABLET (FP) PO SCH ×3 (06:13→22:13)
[2016-12-12] MEDS: DOCUSATE SODIUM 100 MG CAPSULE (FP) PO SCH ×3 (06:13→22:14)
[2016-12-12] MEDS: ACETAMINOPHEN 325 MG TABLET (FP) PO SCH ×4 (06:13→18:42)
[2016-12-12] MEDS: FUROSEMIDE 40 MG/4 ML INJECTABLE VIAL IVPUSH SCH ×2 (06:14→14:50)
[2016-12-12 07:49] LABS: BASOPHIL 0.3 % (0-2.0); EOSINOPHIL 1.3 % (0-4.5); MCH 30.8 pg (25.7-33.7); MEAN CELL VOLUME 90.6 fl (80-96); MEAN PLT VOLUME 7.6 fl (7.5-11.1); NEUTROPHILS 34.1 % (42.8-82.8); PLATELET COUNT 276 K/MM3 (134-434); RDW 13.2 % (11.6-15.6); WHITE BLOOD COUNT 7.9 K/mm3 (4.0-10.0)
[2016-12-12 08:26] LABS: ANION GAP 13 (8-16); CALCIUM 9.4 mg/dL (8.5-10.1); CO2 31 mmol/L (21-32); CREATININE 0.9 mg/dL (0.55-1.02); GLUCOSE,RANDOM 109 mg/dL (74-106); SGOT/AST 13 U/L (15-37); SGPT/ALT 26 U/L (12-78)
[2016-12-12 08:28] LABS: ALK PHOS 96 U/L (45-117); BILIRUBIN,TOTAL 0.6 mg/dL (0.2-1.0); TOT PROT 7.1 g/dl (6.4-8.2)
[2016-12-12] MEDS: oxyCODONE HCL 10 MG SUSTAINED ACTING TABLET PO SCH ×2 (09:42→22:15)
[2016-12-12] MEDS: LIDOCAINE 5% TOPICAL PATCH TP SCH (09:43)
[2016-12-12] MEDS: PANTOPRAZOLE 40 MG TABLET (FP) PO SCH (09:45)
[2016-12-12] MEDS: POTASSIUM CHLORIDE TABS 20 MEQ TABLET.ER (FP) PO SCH ×2 (09:45→22:14)
[2016-12-12] MEDS: LOSARTAN POTASSIUM 25 MG TABLET PO SCH (09:45)
[2016-12-12] MEDS: CARVEDILOL 25 MG TABLET (FP) PO SCH ×2 (09:45→22:14)
[2016-12-12] MEDS: ENOXAPARIN NA (PORCINE) 40 MG/0.4 ML DISP.SYRIN SQ SCH (09:46)
[2016-12-12] MEDS: POLYETHYLENE GLYCOL 3350 119 GM BTL PO SCH (09:47)
[2016-12-12] MEDS: PRAMIPEXOLE DIHYDROCHLORIDE 0.5 MG TABLET PO SCH ×2 (09:52→22:15)
[2016-12-12] MEDS: morphine CARPU-JECT 2 MG/1 ML DISP.SYRIN IVPUSH PRN ×2 (14:51→22:20)
--- NOTE | 2016-12-12 17:11 | PN ---
Physical Exam: SUBJECTIVE: Patient seen and examined. She is willing to go back to rehab. Assured her I will speak to social welfare clerk She has not been able to ambulate much since being hospitalized. States her pain is better. OBJECTIVE: Patient looks more comfortable Will keep pain regimen as it is currently Likely will need STR Vital Signs Period Temp Pulse Resp BP Sys/Naqvi Pulse Ox Last 24 Hr 97.5 F-98.5 F 77-86 18-20 107-137/56-84 94-95 GENERAL: The patient is awake, alert, and fully oriented, in no acute distress. HEAD: Normal with no signs of trauma. EYES: PERRL, extraocular movements intact, sclera anicteric, conjunctiva clear. No ptosis. ENT: Ears normal, nares patent, oropharynx clear without exudates, moist mucous membranes. NECK: Trachea midline, full range of motion, supple. LUNGS: Breath sounds equal, clear to auscultation bilaterally HEART: Regular rate and rhythm, S1, S2 without murmur, rub or gallop. ABDOMEN: Soft, nontender, nondistended, normoactive bowel sounds, no guarding, no rebound, no hepatosplenomegaly, no masses. EXTREMITIES: +2 edema on bilateral lower extremities. NEUROLOGICAL:Normal speech, gait not observed. PSYCH: Normal mood, normal affect. Laboratory Results - last 24 hr 12/12/16 12/12/16 06:20 06:20 WBC 7.9 RBC 4.44 Hgb 13.7 Hct 40.2 MCV 90.6 MCHC 34.0 RDW 13.2 Plt Count 276 MPV 7.6 Neutrophils % 34.1 L Lymphocytes % 53.7 H Monocytes % 10.6 H Eosinophils % 1.3 D Basophils % 0.3 Sodium 136 Potassium 3.7 Chloride 92 L Carbon Dioxide 31 Anion Gap 13 BUN 42 H Creatinine 0.9 Creat Clearance w eGFR > 60 Random Glucose 109 H Calcium 9.4 Total Bilirubin 0.6 AST 13 L D ALT 26 Alkaline Phosphatase 96 Total Protein 7.1 Albumin 4.0 Active Medications Generic Name Dose Route Start Last Admin Trade Name Freq PRN Reason Stop Dose Admin Acetaminophen 650 mg 12/11/16 12:00 12/12/16 12:12 Tylenol - PO 650 mg Q6H [facility] Administration Atorvastatin Calcium 10 mg 12/06/16 22:00 12/11/16 21:44 Lipitor - PO 10 mg HS [facility] Administration Carvedilol 25 mg 12/06/16 22:00 12/12/16 09:45 Coreg - PO 25 mg BID [facility] Administration Cyclobenzaprine HCl 10 mg 12/10/16 10:00 12/12/16 14:50 Flexeril - PO 10 mg TID [facility] Administration Docusate Sodium 100 mg 12/06/16 22:00 12/12/16 14:50 Colace - PO 100 mg TID [facility] Administration Enoxaparin Sodium 40 mg 12/06/16 16:00 12/12/16 09:46 Lovenox - SQ 40 mg DAILY [facility] Administration Furosemide 40 mg 12/07/16 06:00 12/12/16 14:50 Lasix Injection - IVPUSH 40 mg BID@0600,1400 [facility] Administration Lidocaine 2 patch 12/11/16 11:32 12/12/16 09:43 Lidoderm Patch - TP 2 patch DAILY [facility] Administration Losartan Potassium 25 mg 12/07/16 10:00 12/12/16 09:45 Cozaar - PO 25 mg DAILY [facility] Administration Morphine Sulfate 2 mg 12/10/16 17:28 12/12/16 14:51 Morphine Injection - IVPUSH 2 mg Q4H PRN Administration PAIN Oxycodone HCl 10 mg 12/10/16 22:00 12/12/16 09:42 Oxycontin - PO 10 mg BID [facility] Administration Pantoprazole Sodium 40 mg 12/08/16 11:15 12/12/16 09:45 Protonix - PO 40 mg DAILY [facility] Administration Polyethylene Glycol 17 gm 12/06/16 18:00 12/12/16 09:47 Miralax (For Daily Use) - PO 17 gm DAILY [facility] Administration Potassium Chloride 20 meq 12/11/16 10:00 12/12/16 09:45 K-Dur - PO 20 meq BID [facility] Administration Pramipexole Dihydrochloride 0.5 mg 12/06/16 22:00 12/12/16 09:52 Mirapex - PO 0.5 mg BID [facility] Administration Senna 2 tab 12/06/16 22:00 12/11/16 21:44 Senna - PO 2 tab HS [facility] Administration ASSESSMENT/PLAN: Patient is a 76 year old female who was admitted on 12/07/2016 with with intractable lower extremity pain and worsening bilateral lower extremity edema. She has a significant past medical history of hypertension, hyperlipidemia, sciatica, restless leg syndrome and osteoarthritis. Muscular/Skeletal: Bilateral leg pain/unable to ambulate Assessment/Plan: Pain from right hip radiates down to right leg continues to improve with up titration of pain medications MRI lumbar spine with multilevel disc bulging Completed steroids dose three days ago Neuro following Oxycontin BID for pain management Morphine increased to 2mg, Flexiril added by pain management Lidoderm patch x 2 to right hip Tylenol 650mg scheduled q 6 hours Monitor pain levels and titrate meds up as needed Bilateral Lower ext. edema- improving Assessment/Plan: On Lasix 40mg BID for edema with scheduled Potassium supplements May require short term rehab Vascular following for Lower Ext edema Fall precaution, Physical therapy Cardiology: Hypertension Assessment/Plan: On Coreg 25mg BID, Losartan 25 daily Monitor BP F.E.N. Fluids: Tolerating PO Electrolytes: Hypokalemia repleted with Potassium 20MEQ BID Nutrition: regular diet Prophylaxis: GI: Protonix 40mg daily DVT: Lovenox 40mg daily Disposition: Continues to require inpatient hospitalization. Patient will to go to [facility]. Full Code. Visit type - Emergency Visit Emergency Visit: Yes ED Registration Date: 12/07/16 Care time: The patient presented to the Emergency Department on the above date and was hospitalized for further evaluation of their emergent condition. - New Patient This patient is new to me today: No - Critical Care Critical Care patient: No - Discharge Referral Referred to [facility] Med P.C.: No
--- NOTE | 2016-12-12 17:39 | PN ---
Progress Note (short form) - Note Progress Note: alert in nad can hardly walk due to pain no pt eval yet Active Medications Acetaminophen (Tylenol -) 650 mg PO Q6H [facility] Last Admin: 12/12/16 12:12 Dose: 650 mg Atorvastatin Calcium (Lipitor -) 10 mg PO HS [facility] Last Admin: 12/11/16 21:44 Dose: 10 mg Carvedilol (Coreg -) 25 mg PO BID [facility] Last Admin: 12/12/16 09:45 Dose: 25 mg Cyclobenzaprine HCl (Flexeril -) 10 mg PO TID [facility] Last Admin: 12/12/16 14:50 Dose: 10 mg Docusate Sodium (Colace -) 100 mg PO TID [facility] Last Admin: 12/12/16 14:50 Dose: 100 mg Enoxaparin Sodium (Lovenox -) 40 mg SQ DAILY [facility] Last Admin: 12/12/16 09:46 Dose: 40 mg Furosemide (Lasix Injection -) 40 mg IVPUSH BID@0600,1400 [facility] Last Admin: 12/12/16 14:50 Dose: 40 mg Lidocaine (Lidoderm Patch -) 2 patch TP DAILY [facility] Last Admin: 12/12/16 09:43 Dose: 2 patch Losartan Potassium (Cozaar -) 25 mg PO DAILY [facility] Last Admin: 12/12/16 09:45 Dose: 25 mg Morphine Sulfate (Morphine Injection -) 2 mg IVPUSH Q4H PRN PRN Reason: PAIN Last Admin: 12/12/16 14:51 Dose: 2 mg Oxycodone HCl (Oxycontin -) 10 mg PO BID [facility] Last Admin: 12/12/16 09:42 Dose: 10 mg Pantoprazole Sodium (Protonix -) 40 mg PO DAILY [facility] Last Admin: 12/12/16 09:45 Dose: 40 mg Polyethylene Glycol (Miralax (For Daily Use) -) 17 gm PO DAILY [facility] Last Admin: 12/12/16 09:47 Dose: 17 gm Potassium Chloride (K-Dur -) 20 meq PO BID [facility] Last Admin: 12/12/16 09:45 Dose: 20 meq Pramipexole Dihydrochloride (Mirapex -) 0.5 mg PO BID [facility] Last Admin: 12/12/16 09:52 Dose: 0.5 mg Senna (Senna -) 2 tab PO [facility] Last Admin: 12/11/16 21:44 Dose: 2 tab Last Vital Signs Temp Pulse Resp BP Pulse Ox 97.8 F 77 20 107/56 94 L 12/12/16 15:02 12/12/16 15:02 12/12/16 15:02 12/12/16 15:02 12/12/16 09:00 lungs clear heart rrr abd soft nontender ext no edema IMP- severe djd right hip Plan- pt eval
[2016-12-12] MEDS: SENNOSIDES 8.6MG TABLET (FP) PO SCH (22:13)
[2016-12-12] MEDS: ATORVASTATIN CA 10 MG TABLET (FP) PO SCH (22:14)
[2016-12-13] MEDS: ACETAMINOPHEN 325 MG TABLET (FP) PO SCH ×5 (00:20→18:17)
[2016-12-13] MEDS: morphine CARPU-JECT 2 MG/1 ML DISP.SYRIN IVPUSH PRN (03:23)
[2016-12-13] MEDS: DOCUSATE SODIUM 100 MG CAPSULE (FP) PO SCH ×3 (06:21→21:59)
[2016-12-13] MEDS: CYCLOBENZAPRINE HCL 10 MG TABLET (FP) PO SCH ×3 (06:21→21:59)
[2016-12-13] MEDS: FUROSEMIDE 40 MG/4 ML INJECTABLE VIAL IVPUSH SCH ×2 (06:21→14:47)
[2016-12-13] MEDS ORDERED: PT OWN MED DRAWER 7, Y5N ONE ×4 (07:29→21:35)
[2016-12-13 07:44] LABS: BASOPHIL 0.3 % (0-2.0); EOSINOPHIL 1.7 % (0-4.5); MCHC 34.6 g/dl (32.0-36.0); MEAN CELL VOLUME 89.6 fl (80-96); MEAN PLT VOLUME 7.4 fl (7.5-11.1); NEUTROPHILS 35.6 % (42.8-82.8); PLATELET COUNT 270 K/MM3 (134-434); RDW 13.1 % (11.6-15.6); WHITE BLOOD COUNT 8.3 K/mm3 (4.0-10.0)
[2016-12-13 08:05] LABS: ANION GAP 8 (8-16); CALCIUM 9.5 mg/dL (8.5-10.1); CO2 33 mmol/L (21-32); GLUCOSE,RANDOM 112 mg/dL (74-106); SGOT/AST 20 U/L (15-37); SGPT/ALT 27 U/L (12-78)
[2016-12-13 08:07] LABS: ALK PHOS 95 U/L (45-117); BILIRUBIN,TOTAL 0.5 mg/dL (0.2-1.0); CREATININE 0.9 mg/dL (0.55-1.02); TOT PROT 7.3 g/dl (6.4-8.2)
[2016-12-13] MEDS: PANTOPRAZOLE 40 MG TABLET (FP) PO SCH (09:49)
[2016-12-13] MEDS: LOSARTAN POTASSIUM 25 MG TABLET PO SCH (09:49)
[2016-12-13] MEDS: oxyCODONE HCL 10 MG SUSTAINED ACTING TABLET PO SCH ×2 (09:49→22:04)
[2016-12-13] MEDS: PRAMIPEXOLE DIHYDROCHLORIDE 0.5 MG TABLET PO SCH ×2 (09:49→21:59)
[2016-12-13] MEDS: POTASSIUM CHLORIDE TABS 20 MEQ TABLET.ER (FP) PO SCH ×2 (09:49→22:00)
[2016-12-13] MEDS: CARVEDILOL 25 MG TABLET (FP) PO SCH ×2 (09:49→21:59)
[2016-12-13] MEDS: ENOXAPARIN NA (PORCINE) 40 MG/0.4 ML DISP.SYRIN SQ SCH (09:50)
[2016-12-13] MEDS: POLYETHYLENE GLYCOL 3350 119 GM BTL PO SCH (09:50)
[2016-12-13] MEDS: LIDOCAINE 5% TOPICAL PATCH TP SCH (09:50)
[2016-12-13] MEDS ORDERED: oxyCODONE HCL 10 MG SUSTAINED ACTING TABLET PO SCH (10:30)
[2016-12-13] MEDS ORDERED: oxyCODONE HCL 10 MG SUSTAINED ACTING TABLET PO ONE ×2 (10:31→11:15)
--- NOTE | 2016-12-13 17:01 | PN ---
Progress Note, Physician Chief Complaint: The patient is sitting by her bed. seems confused. Not complaining of pains. On review of her medications she is on multiple Narcotic medications, which I believe is the reason for her confusion. Patient was seen by Pain risk control consultant. - Current Medication List Current Medications: Active Medications Acetaminophen (Tylenol -) 650 mg PO Q6H [facility] Last Admin: 12/13/16 11:01 Dose: 650 mg Atorvastatin Calcium (Lipitor -) 10 mg PO HS [facility] Last Admin: 12/12/16 22:14 Dose: 10 mg Carvedilol (Coreg -) 25 mg PO BID [facility] Last Admin: 12/13/16 09:49 Dose: 25 mg Cyclobenzaprine HCl (Flexeril -) 10 mg PO TID [facility] Last Admin: 12/13/16 14:47 Dose: 10 mg Docusate Sodium (Colace -) 100 mg PO TID [facility] Last Admin: 12/13/16 14:47 Dose: 100 mg Enoxaparin Sodium (Lovenox -) 40 mg SQ DAILY [facility] Last Admin: 12/13/16 09:50 Dose: 40 mg Furosemide (Lasix Injection -) 40 mg IVPUSH BID@0600,1400 [facility] Last Admin: 12/13/16 14:47 Dose: 40 mg Lidocaine (Lidoderm Patch -) 2 patch TP DAILY [facility] Last Admin: 12/13/16 09:50 Dose: 2 patch Losartan Potassium (Cozaar -) 25 mg PO DAILY [facility] Last Admin: 12/13/16 09:49 Dose: 25 mg Morphine Sulfate (Morphine Injection -) 2 mg IVPUSH Q4H PRN PRN Reason: PAIN Last Admin: 12/13/16 03:23 Dose: 2 mg Oxycodone HCl (Oxycontin -) 20 mg PO BID [facility] Pantoprazole Sodium (Protonix -) 40 mg PO DAILY [facility] Last Admin: 12/13/16 09:49 Dose: 40 mg Polyethylene Glycol (Miralax (For Daily Use) -) 17 gm PO DAILY [facility] Last Admin: 12/13/16 09:50 Dose: 17 gm Potassium Chloride (K-Dur -) 20 meq PO BID [facility] Last Admin: 12/13/16 09:49 Dose: 20 meq Pramipexole Dihydrochloride (Mirapex -) 0.5 mg PO BID [facility] Last Admin: 12/13/16 09:49 Dose: 0.5 mg Senna (Senna -) 2 tab PO HS [facility] Last Admin: 12/12/16 22:13 Dose: 2 tab - Objective Vital Signs: Vital Signs Temperature 97.3 F L 12/13/16 14:10 Pulse Rate 84 12/13/16 14:10 Respiratory Rate 19 12/13/16 14:10 Blood Pressure 119/63 12/13/16 14:10 O2 Sat by Pulse Oximetry (%) 95 12/13/16 09:00 Constitutional: Yes: Well Nourished, No Distress, Other (confused) Eyes: Yes: WNL HENT: Yes: WNL Neck: Yes: Supple Cardiovascular: Yes: Regular Rate and Rhythm, S1, S2 Respiratory: Yes: Regular, CTA Bilaterally Gastrointestinal: Yes: Normal Bowel Sounds, Soft, Abdomen, Obese Genitourinary: No: Bladder Distention, CVA Tenderness - Left, CVA Tenderness - Right Neurological: Yes: Confusion Labs: CBC, BMP 12/13/16 06:45 12/13/16 06:45 Problem List - Problems (1) Intractable pain Code(s): R52 - PAIN, UNSPECIFIED (2) Leg pain, bilateral Code(s): M79.604 - PAIN IN RIGHT LEG M79.605 - PAIN IN LEFT LEG (3) Edema Code(s): R60.9 - EDEMA, UNSPECIFIED (4) Hypertension Code(s): I10 - ESSENTIAL (PRIMARY) HYPERTENSION Qualifiers: Hypertension type: essential hypertension Qualified Code(s): I10 - Essential (primary) hypertension (5) Osteoarthritis, hip, bilateral Code(s): M16.0 - BILATERAL PRIMARY OSTEOARTHRITIS OF HIP Qualifiers: Osteoarthritis type: primary Qualified Code(s): M16.0 - Bilateral primary osteoarthritis of hip (6) Diastolic heart failure Code(s): I50.30 - UNSPECIFIED DIASTOLIC (CONGESTIVE) HEART FAILURE Assessment/Plan 76 y/o female admitted with intractable hip pains and bilateral LE edema. The edema is practically resolved. The patient is on polypharmacopia when it comes to analgesics. Will request Dr. lan to reduce / stop some of the medications. The patient's acute confusion seems to be related to the narcotic alagesics. The plan is to discharge her to SNF for short time Rehab, and then readmit for hip surgery once she becomes ambulatory. Kay Rucker MD
--- NOTE | 2016-12-13 17:52 | DS ---
Physical Exam: SUBJECTIVE: Patient seen and examined. States her pain is better but still present, able to pivot to the commode. OBJECTIVE: Having some intermittent pain of right hip Pain better, but still present Vital Signs Period Temp Pulse Resp BP Sys/Naqvi Pulse Ox Last 24 Hr 97.3 F-98.2 F 84-93 18-20 119-145/62-94 95 PHYSICAL EXAM GENERAL: The patient is awake, alert, and fully oriented, in no acute distress. HEAD: Normal with no signs of trauma. EYES: PERRL, extraocular movements intact, sclera anicteric, conjunctiva clear. No ptosis. ENT: Ears normal, nares patent, oropharynx clear without exudates, moist mucous membranes. NECK: Trachea midline, full range of motion, supple. LUNGS: Breath sounds equal, clear to auscultation bilaterally HEART: Regular rate and rhythm, S1, S2 without murmur, rub or gallop. ABDOMEN: Soft, nontender, nondistended, normoactive bowel sounds, no guarding, no rebound, no hepatosplenomegaly, no masses. EXTREMITIES: +2 edema on bilateral lower extremities. NEUROLOGICAL:Normal speech, gait not observed. PSYCH: Normal mood, normal affect. LABS Laboratory Results - last 24 hr 12/13/16 12/13/16 06:45 06:45 WBC 8.3 RBC 4.50 Hgb 14.0 Hct 40.4 MCV 89.6 MCHC 34.6 RDW 13.1 Plt Count 270 MPV 7.4 L Neutrophils % 35.6 L Lymphocytes % 51.9 H Monocytes % 10.5 H Eosinophils % 1.7 Basophils % 0.3 Sodium 137 Potassium 3.6 Chloride 96 L Carbon Dioxide 33 H Anion Gap 8 BUN 37 H Creatinine 0.9 Creat Clearance w eGFR > 60 Random Glucose 112 H Calcium 9.5 Total Bilirubin 0.5 AST 20 D ALT 27 Alkaline Phosphatase 95 Total Protein 7.3 Albumin 4.0 HOSPITAL COURSE: Date of Admission:12/07/16 Date of Discharge: 12/13/16 Discharge Summary Reason For Visit: INTRACTABLE PAIN; PAIN BILATERAL EXTREMITIES Current Active Problems Degenerative lumbar spinal stenosis (Acute) Diastolic heart failure (Acute) Difficulty in walking (Acute) Edema (Acute) Hypertension (Acute) Intractable pain (Acute) Leg pain, bilateral (Acute) Osteoarthritis, hip, bilateral (Acute) Primary osteoarthritis of right hip (Acute) Condition: Stable - Instructions Diet, Activity, Other Instructions: Please continue all medications as prescribed. Monitor cbc/cmp. Patient is on Lasix twice per day. Referrals: Kay Rucker MD [Primary Care Provider] - Disposition: [facility] - Home Medications Comprehensive Discharge Medication List: Ambulatory Orders Aspirin [ASA -] 81 mg PO DAILY 12/06/16 Atorvastatin Ca [Lipitor] 10 mg PO HS 12/06/16 Carvedilol [Coreg -] 25 mg PO BID 12/06/16 Gabapentin [Neurontin -] 300 mg PO BID 12/06/16 Losartan Potassium 25 mg PO DAILY 12/06/16 Oxycodone HCl/Acetaminophen [Percocet 5-325 mg Tablet] 1 tab PO Q4H PRN Oxycodone Sr [Oxycontin] 0 mg PO BID 12/06/16 Pramipexole Di-HCl [Mirapex] 0.5 mg PO BID 12/06/16 Acetaminophen [Tylenol .Regular Strength -] 650 mg PO Q6H tablet 12/13/16 Carvedilol [Coreg -] 25 mg PO BID tablet 12/13/16 Docusate Sodium [Colace -] 100 mg PO TID #30 tab 12/13/16 Enoxaparin [Lovenox -] 40 mg SQ DAILY #30 syringe 12/13/16 Furosemide [Lasix] 40 mg PO BID #60 tablet 12/13/16 Lidocaine 5% Patch [Lidoderm -] 2 patch TP DAILY patch 12/13/16 Oxycodone Sr [Oxycontin] 30 mg PO BID #30 tab MDD 2 tabs 12/13/16 Pantoprazole Sodium [Protonix -] 40 mg PO DAILY #30 tab 12/13/16 Polyethylene Glycol 3350 [Miralax 119 gm Btl -] 17 gm PO DAILY #1 bottle Potassium Chloride [K-Dur -] 20 meq PO BID #60 tab 12/13/16 Sennosides [Senna -] 2 tab PO HS #60 tablet 12/13/16 - Discharge Referral Referred to [facility] Med P.C.: No
[2016-12-13] MEDS ORDERED: morphine CARPU-JECT 2 MG/1 ML DISP.SYRIN IVPUSH PRN ×2 (19:03→19:05)
[2016-12-13] MEDS ORDERED: oxyCODONE HCL 5 MG TABLET PO PRN (19:04)
--- NOTE | 2016-12-13 19:18 | PN ---
Physical Exam: SUBJECTIVE: Patient seen and examined. Daughter reports her mother is more confused today. OBJECTIVE: Confusion likely due to increased narcotics: will lower Oxycontin to 20mg BID, add Oxycodone 5mg for breakthrough pain PRN Morphine 1mg for severe pain Discussed with Dr. Hopkins - Patient for an epidural injection tomorrow HOLD Lovenox for OR tomorrow, NPO at midnight Daughter concerned over her mother's discharge to [facility], states if her mother goes she may end up returning to ER for worsening pain. Vital Signs Period Temp Pulse Resp BP Sys/Naqvi Pulse Ox Last 24 Hr 97.3 F-98.6 F 75-89 18-20 119-145/62-94 95 GENERAL: The patient is awake, alert, and fully oriented, in no acute distress. HEAD: Normal with no signs of trauma. EYES: PERRL, extraocular movements intact, sclera anicteric, conjunctiva clear. No ptosis. ENT: Ears normal, nares patent, oropharynx clear without exudates, moist mucous membranes. NECK: Trachea midline, full range of motion, supple. LUNGS: Breath sounds equal, clear to auscultation bilaterally HEART: Regular rate and rhythm, S1, S2 without murmur, rub or gallop. ABDOMEN: Soft, nontender, nondistended, normoactive bowel sounds, no guarding, no rebound, no hepatosplenomegaly, no masses. EXTREMITIES: +2 edema on bilateral lower extremities. NEUROLOGICAL:Normal speech, gait not observed. PSYCH: Normal mood, normal affect. Laboratory Results - last 24 hr 12/13/16 12/13/16 06:45 06:45 WBC 8.3 RBC 4.50 Hgb 14.0 Hct 40.4 MCV 89.6 MCHC 34.6 RDW 13.1 Plt Count 270 MPV 7.4 L Neutrophils % 35.6 L Lymphocytes % 51.9 H Monocytes % 10.5 H Eosinophils % 1.7 Basophils % 0.3 Sodium 137 Potassium 3.6 Chloride 96 L Carbon Dioxide 33 H Anion Gap 8 BUN 37 H Creatinine 0.9 Creat Clearance w eGFR > 60 Random Glucose 112 H Calcium 9.5 Total Bilirubin 0.5 AST 20 D ALT 27 Alkaline Phosphatase 95 Total Protein 7.3 Albumin 4.0 Active Medications Generic Name Dose Route Start Last Admin Trade Name Freq PRN Reason Stop Dose Admin Acetaminophen 650 mg 12/11/16 12:00 12/13/16 18:17 Tylenol - PO 650 mg Q6H [facility] Administration Atorvastatin Calcium 10 mg 12/06/16 22:00 12/12/16 22:14 Lipitor - PO 10 mg HS [facility] Administration Carvedilol 25 mg 12/06/16 22:00 12/13/16 09:49 Coreg - PO 25 mg BID [facility] Administration Cyclobenzaprine HCl 10 mg 12/10/16 10:00 12/13/16 14:47 Flexeril - PO 10 mg TID [facility] Administration Docusate Sodium 100 mg 12/06/16 22:00 12/13/16 14:47 Colace - PO 100 mg TID [facility] Administration Enoxaparin Sodium 40 mg 12/06/16 16:00 12/13/16 09:50 Lovenox - SQ 40 mg DAILY [facility] Administration Furosemide 40 mg 12/07/16 06:00 12/13/16 14:47 Lasix Injection - IVPUSH 40 mg BID@0600,1400 [facility] Administration Lidocaine 2 patch 12/11/16 11:32 12/13/16 09:50 Lidoderm Patch - TP 2 patch DAILY [facility] Administration Losartan Potassium 25 mg 12/07/16 10:00 12/13/16 09:49 Cozaar - PO 25 mg DAILY [facility] Administration Morphine Sulfate 1 mg 12/13/16 19:05 Morphine Injection - IVPUSH Q6H PRN PAIN Oxycodone HCl 20 mg 12/13/16 22:00 Oxycontin - PO BID [facility] Oxycodone HCl 5 mg 12/13/16 19:04 Roxicodone - PO Q6H PRN PAIN Pantoprazole Sodium 40 mg 12/08/16 11:15 12/13/16 09:49 Protonix - PO 40 mg DAILY [facility] Administration Polyethylene Glycol 17 gm 12/06/16 18:00 12/13/16 09:50 Miralax (For Daily Use) - PO 17 gm DAILY [facility] Administration Potassium Chloride 20 meq 12/11/16 10:00 12/13/16 09:49 K-Dur - PO 20 meq BID [facility] Administration Pramipexole Dihydrochloride 0.5 mg 12/06/16 22:00 12/13/16 09:49 Mirapex - PO 0.5 mg BID [facility] Administration Senna 2 tab 12/06/16 22:00 05/07/17 22:13 Senna - PO 2 tab HS [facility] Administration ASSESSMENT/PLAN: Patient is a 76 year old female who was admitted on 12/07/2016 with with intractable lower extremity pain and worsening bilateral lower extremity edema. She has a significant past medical history of hypertension, hyperlipidemia, sciatica, restless leg syndrome and osteoarthritis. Muscular/Skeletal: Bilateral leg pain/unable to ambulate Assessment/Plan: Pain from right hip radiates down to right leg continues to improve with up titration of pain medications but now medications are causing confusion For epidural injection in the morning As per Dr Hopkins, decrease the Oxycontin to 20mg BID, add Oxycodone 5mg as needed for breakthrough, Morphine 1mg IV only if pain is severe NPO @ midnight for epidural injection in a.m. Lidoderm patch x 2 to right hip Tylenol 650mg scheduled q 6 hours Bilateral Lower ext. edema- improving Assessment/Plan: On Lasix 40mg BID for edema with scheduled Potassium supplements May require short term rehab Vascular following for Lower Ext edema Fall precaution, Physical therapy Cardiology: Hypertension Assessment/Plan: On Coreg 25mg BID, Losartan 25 daily Monitor BP F.E.N. Fluids: Tolerating PO Electrolytes: Hypokalemia repleted with Potassium 20MEQ BID Nutrition: regular diet Prophylaxis: GI: Protonix 40mg daily DVT: HOLD lovenox for epidural injection in a.m Disposition: Continues to require inpatient hospitalization. Patient will to go to [facility]. Full Code. Visit type - Emergency Visit Emergency Visit: Yes ED Registration Date: 12/07/16 Care time: The patient presented to the Emergency Department on the above date and was hospitalized for further evaluation of their emergent condition. - New Patient This patient is new to me today: No - Critical Care Critical Care patient: No - Discharge Referral Referred to [facility] Med P.C.: No
[2016-12-13] MEDS ORDERED: ACETAMINOPHEN 325 MG TABLET (FP) PO PRN (19:23)
[2016-12-13] MEDS: ATORVASTATIN CA 10 MG TABLET (FP) PO SCH (21:59)
[2016-12-13] MEDS: SENNOSIDES 8.6MG TABLET (FP) PO SCH (21:59)
[2016-12-14] MEDS: CYCLOBENZAPRINE HCL 10 MG TABLET (FP) PO SCH ×3 (06:06→23:04)
[2016-12-14] MEDS: FUROSEMIDE 40 MG/4 ML INJECTABLE VIAL IVPUSH SCH ×2 (06:06→16:19)
[2016-12-14] MEDS: DOCUSATE SODIUM 100 MG CAPSULE (FP) PO SCH ×3 (06:06→23:03)
[2016-12-14 08:52] LABS: BASOPHIL 0.4 % (0-2.0); MCH 30.6 pg (25.7-33.7); MCHC 33.6 g/dl (32.0-36.0); MEAN PLT VOLUME 7.6 fl (7.5-11.1); NEUTROPHILS 47.8 % (42.8-82.8); PLATELET COUNT 302 K/MM3 (134-434); RDW 12.9 % (11.6-15.6); WHITE BLOOD COUNT 10.2 K/mm3 (4.0-10.0)
[2016-12-14 09:20] LABS: ALBUMIN 4.5 g/dl (3.4-5.0); ANION GAP 11 (8-16); CALCIUM 10.4 mg/dL (8.5-10.1); CO2 32 mmol/L (21-32); GLUCOSE,RANDOM 137 mg/dL (74-106)
[2016-12-14 09:24] LABS: ALK PHOS 103 U/L (45-117); BILIRUBIN,TOTAL 0.8 mg/dL (0.2-1.0); CREATININE 0.9 mg/dL (0.55-1.02); SGOT/AST 20 U/L (15-37); SGPT/ALT 28 U/L (12-78)
[2016-12-14] MEDS: LIDOCAINE 5% TOPICAL PATCH TP SCH (09:40)
[2016-12-14] MEDS: CARVEDILOL 25 MG TABLET (FP) PO SCH ×2 (09:41→23:04)
[2016-12-14] MEDS: POTASSIUM CHLORIDE TABS 20 MEQ TABLET.ER (FP) PO SCH ×2 (09:41→23:04)
[2016-12-14] MEDS: PRAMIPEXOLE DIHYDROCHLORIDE 0.5 MG TABLET PO SCH ×2 (09:41→23:49)
[2016-12-14] MEDS: oxyCODONE HCL 10 MG SUSTAINED ACTING TABLET PO SCH ×3 (09:41→23:05)
[2016-12-14] MEDS: LOSARTAN POTASSIUM 25 MG TABLET PO SCH (09:41)
[2016-12-14] MEDS: POLYETHYLENE GLYCOL 3350 119 GM BTL PO SCH (09:41)
[2016-12-14] MEDS: PANTOPRAZOLE 40 MG TABLET (FP) PO SCH (09:42)
[2016-12-14] MEDS ORDERED: LIDOCAINE HCL 1%, 10 MG/ML (20ML VIAL) ONE (12:09)
[2016-12-14] MEDS ORDERED: methylPREDNISolone ACET (DEPO) 40 MG/1 ML VIAL ONE (12:09)
[2016-12-14] MEDS ORDERED: BUPIVACAINE HCL/PF 0.25% (2.5MG/ML) 10 ML VIAL ONE (12:10)
[2016-12-14] MEDS ORDERED: BETAMET ACET/BETAMET NA PH 30 MG/5 ML VIAL ONE (12:10)
[2016-12-14] MEDS ORDERED: MIDAZOLAM HCL 2 MG/2 ML SINGLE DOSE VIAL ONE (13:16)
--- NOTE | 2016-12-14 13:22 | PN ---
Progress Note (short form) - Note Progress Note: Renal Follow up for Edema/Volume Management Pt seen and examined at the bedside continues to have pain radiating to the legs for OR today for Epidural injection swelling is improved Vital Signs Temperature 98.0 F 12/14/16 10:00 Pulse Rate 105 H 12/14/16 10:00 Respiratory Rate 20 12/14/16 10:00 Blood Pressure 153/82 12/14/16 10:00 O2 Sat by Pulse Oximetry (%) 95 12/13/16 21:00 Intake & Output 12/11/16 12/12/16 12/13/16 12/14/16 23:59 23:59 23:59 23:59 Intake Total 1320 1500 1150 0 Output Total 600 Balance 4687 546 1501 0 Gen: NAD, awake and alert CVS: RRR, No M/R Lungs: CTA Abd: soft NT/ND Ext: 2+ edema in the LE CBC, BMP 12/14/16 08:05 12/14/16 08:05 Current Medications Acetaminophen (Tylenol -) 650 mg PO Q6H PRN PRN Reason: PAIN Atorvastatin Calcium (Lipitor -) 10 mg PO HS [facility] Last Admin: 12/13/16 21:59 Dose: 10 mg Carvedilol (Coreg -) 25 mg PO BID [facility] Last Admin: 12/14/16 09:41 Dose: 25 mg Cyclobenzaprine HCl (Flexeril -) 10 mg PO TID [facility] Last Admin: 12/14/16 06:06 Dose: Not Given Docusate Sodium (Colace -) 100 mg PO TID [facility] Last Admin: 12/14/16 06:06 Dose: Not Given Enoxaparin Sodium (Lovenox -) 40 mg SQ DAILY [facility] Last Admin: 12/13/16 09:50 Dose: 40 mg Furosemide (Lasix Injection -) 40 mg IVPUSH BID@0600,1400 [facility] Last Admin: 12/14/16 06:06 Dose: 40 mg Lidocaine (Lidoderm Patch -) 2 patch TP DAILY [facility] Last Admin: 12/14/16 09:40 Dose: 2 patch Losartan Potassium (Cozaar -) 25 mg PO DAILY [facility] Last Admin: 12/14/16 09:41 Dose: 25 mg Morphine Sulfate (Morphine Injection -) 1 mg IVPUSH Q6H PRN PRN Reason: PAIN Oxycodone HCl (Oxycontin -) 20 mg PO BID [facility] Last Admin: 12/14/16 10:23 Dose: 20 mg Oxycodone HCl (Roxicodone -) 5 mg PO Q6H PRN PRN Reason: PAIN Pantoprazole Sodium (Protonix -) 40 mg PO DAILY [facility] Last Admin: 12/14/16 09:42 Dose: 40 mg Polyethylene Glycol (Miralax (For Daily Use) -) 17 gm PO DAILY [facility] Last Admin: 12/14/16 09:41 Dose: Not Given Potassium Chloride (K-Dur -) 20 meq PO BID [facility] Last Admin: 12/14/16 09:41 Dose: 20 meq Pramipexole Dihydrochloride (Mirapex -) 0.5 mg PO BID [facility] Last Admin: 12/14/16 09:41 Dose: Not Given Senna (Senna -) 2 tab PO HS [facility] Last Admin: 12/13/16 21:59 Dose: 2 tab A/P 76 year old woman with PMhx of hypertension, hyperlipidemia, sciatica, restless leg syndrome and osteoarthritis presented with complaints of LE pain and swelling. #LE swelling ECHO showed diastolic dysfunction Renal function is within normal limits and pt without any proteinuria Clinically improved on IV lasix, can tarnsition to oral lasix -> 40mg PO BID Trend renal function and electrolytes #Hypertension Continue Coreg, Losartan #Back pain for Epidural injection today PT as tolerated Thank you Kameron Logan DO
[2016-12-14] MEDS ORDERED: TRIAMCINOLONE ACET 40MG/1ML VIAL IJ ONE ×3 (13:28→13:33)
[2016-12-14] MEDS ORDERED: BUPIVACAINE HCL/PF 0.25% (2.5MG/ML) 10 ML VIAL IJ ONE ×3 (13:28→13:33)
[2016-12-14] MEDS ORDERED: LIDOCAINE HCL 1%, 10 MG/ML (50 mL VIAL) IJ ONE ×3 (13:28→13:30)
[2016-12-14] MEDS ORDERED: IOHEXOL 180 MG/1 ML ML IJ ONE ×2 (13:28→13:31)
--- NOTE | 2016-12-14 13:55 | PROC ---
Arthrocentesis - Arthrocentesis Indication: Steriod Injection
--- NOTE | 2016-12-14 14:24 | PN ---
Physical Exam: SUBJECTIVE: Patient seen and examined. State OBJECTIVE: Vital Signs Period Temp Pulse Resp BP Sys/Naqvi Pulse Ox Last 24 Hr 97.4 F-98.6 F 75-105 18-20 118-153/67-82 95 GENERAL: The patient is awake, alert, and fully oriented, in no acute distress. HEAD: Normal with no signs of trauma. EYES: PERRL, extraocular movements intact, sclera anicteric, conjunctiva clear. No ptosis. ENT: Ears normal, nares patent, oropharynx clear without exudates, moist mucous membranes. NECK: Trachea midline, full range of motion, supple. LUNGS: Breath sounds equal, clear to auscultation bilaterally HEART: Regular rate and rhythm, S1, S2 without murmur, rub or gallop. ABDOMEN: Soft, nontender, nondistended, normoactive bowel sounds, no guarding, no rebound, no hepatosplenomegaly, no masses. EXTREMITIES: +2 edema on bilateral lower extremities. NEUROLOGICAL:Normal speech, gait not observed. PSYCH: Normal mood, normal affect. Laboratory Results - last 24 hr 12/14/16 12/14/16 08:05 08:05 WBC 10.2 H RBC 4.77 Hgb 14.6 Hct 43.4 MCV 91.0 MCHC 33.6 RDW 12.9 Plt Count 302 MPV 7.6 Neutrophils % 47.8 D Lymphocytes % 41.3 H D Monocytes % 9.5 Eosinophils % 1.0 Basophils % 0.4 Sodium 138 Potassium 3.9 Chloride 95 L Carbon Dioxide 32 Anion Gap 11 BUN 34 H Creatinine 0.9 Creat Clearance w eGFR > 60 Random Glucose 137 H D Calcium 10.4 H Total Bilirubin 0.8 D AST 20 ALT 28 Alkaline Phosphatase 103 Total Protein 8.0 Albumin 4.5 Active Medications Generic Name Dose Route Start Last Admin Trade Name Freq PRN Reason Stop Dose Admin Acetaminophen 650 mg 12/13/16 19:23 Tylenol - PO Q6H PRN PAIN Atorvastatin Calcium 10 mg 12/06/16 22:00 12/13/16 21:59 Lipitor - PO 10 mg HS MOISÉS Administration Carvedilol 25 mg 12/06/16 22:00 12/14/16 09:41 Coreg - PO 25 mg BID MOISÉS Administration Cyclobenzaprine HCl 10 mg 12/10/16 10:00 12/14/16 14:20 Flexeril - PO Not Given TID MOISÉS Docusate Sodium 100 mg 12/06/16 22:00 12/14/16 14:20 Colace - PO Not Given TID MOISÉS Enoxaparin Sodium 40 mg 12/06/16 16:00 12/13/16 09:50 Lovenox - SQ 40 mg DAILY MOISÉS Administration Furosemide 40 mg 12/07/16 06:00 12/14/16 06:06 Lasix Injection - IVPUSH 40 mg BID@0600,1400 MOISÉS Administration Lidocaine 2 patch 12/11/16 11:32 12/14/16 09:40 Lidoderm Patch - TP 2 patch DAILY MOISÉS Administration Losartan Potassium 25 mg 12/07/16 10:00 12/14/16 09:41 Cozaar - PO 25 mg DAILY MO[facility]ÉS Administration Morphine Sulfate 1 mg 12/13/16 19:05 Morphine Injection - IVPUSH Q6H PRN PAIN Oxycodone HCl 20 mg 12/13/16 22:00 12/14/16 10:23 Oxycontin - PO 20 mg BID MO[facility]S Administration Oxycodone HCl 5 mg 12/13/16 19:04 Roxicodone - PO Q6H PRN PAIN Pantoprazole Sodium 40 mg 12/08/16 11:15 12/14/16 09:42 Protonix - PO 40 mg DAILY [facility] Administration Polyethylene Glycol 17 gm 12/06/16 18:00 12/14/16 09:41 Miralax (For Daily Use) - PO Not Given DAILY [facility] Potassium Chloride 20 meq 12/11/16 10:00 12/14/16 09:41 K-Dur - PO 20 meq BID [facility] Administration Pramipexole Dihydrochloride 0.5 mg 12/06/16 22:00 12/14/16 09:41 Mirapex - PO Not Given BID MOISÉS Senna 2 tab 12/06/16 22:00 12/13/16 21:59 Senna - PO 2 tab HS MOISÉS Administration ASSESSMENT/PLAN:
--- NOTE | 2016-12-14 14:52 | DS ---
Physical Exam: SUBJECTIVE: Patient seen and examined this morning. s/p epidural injection today with Dr. Hopkins. OBJECTIVE: Discharge to rehab tomorrow Resume Lovenox 40mg today Vital Signs Period Temp Pulse Resp BP Sys/Naqvi Pulse Ox Last 24 Hr 97.4 F-98.6 F 75-105 18-20 118-153/67-82 95 PHYSICAL EXAM GENERAL: The patient is awake, alert, and fully oriented, in no acute distress. HEAD: Normal with no signs of trauma. EYES: PERRL, extraocular movements intact, sclera anicteric, conjunctiva clear. No ptosis. ENT: Ears normal, nares patent, oropharynx clear without exudates, moist mucous membranes. NECK: Trachea midline, full range of motion, supple. LUNGS: Breath sounds equal, clear to auscultation bilaterally HEART: Regular rate and rhythm, S1, S2 without murmur, rub or gallop. ABDOMEN: Soft, nontender, nondistended, normoactive bowel sounds, no guarding, no rebound, no hepatosplenomegaly, no masses. EXTREMITIES: +2 edema on bilateral lower extremities. NEUROLOGICAL:Normal speech, gait not observed. PSYCH: Normal mood, normal affect. LABS Laboratory Results - last 24 hr 12/14/16 12/14/16 08:05 08:05 WBC 10.2 H RBC 4.77 Hgb 14.6 Hct 43.4 MCV 91.0 MCHC 33.6 RDW 12.9 Plt Count 302 MPV 7.6 Neutrophils % 47.8 D Lymphocytes % 41.3 H D Monocytes % 9.5 Eosinophils % 1.0 Basophils % 0.4 Sodium 138 Potassium 3.9 Chloride 95 L Carbon Dioxide 32 Anion Gap 11 BUN 34 H Creatinine 0.9 Creat Clearance w eGFR > 60 Random Glucose 137 H D Calcium 10.4 H Total Bilirubin 0.8 D AST 20 ALT 28 Alkaline Phosphatase 103 Total Protein 8.0 Albumin 4.5 HOSPITAL COURSE: Date of Admission:12/07/16 Date of Discharge: 12/15/16 Patient is a 76 year old female who was admitted on 12/07/2016 with with intractable lower extremity pain and worsening bilateral lower extremity edema. She has a significant past medical history of hypertension, hyperlipidemia, sciatica, restless leg syndrome and osteoarthritis. Muscular/Skeletal: Bilateral leg pain/unable to ambulate - s/p epidural injection today Oxycontin 20mg BID until patient is able to ambulate with PT and pain improves with Epidural injection. Lidoderm patch x 2 to right hip Tylenol 650mg scheduled q 6 hours Discharge to rehab on 12/15/2016 Bilateral Lower ext. edema- much improved Assessment/Plan: On Lasix 40mg BID for edema with scheduled Potassium supplements Fall precaution, Physical therapy Cardiology: Hypertension Assessment/Plan: On Coreg 25mg BID, Losartan 25 daily Monitor BP Prophylaxis: GI: Protonix 40mg daily DVT: Lovenox 40mg to continue @ rehab until patient fully ambulatory Disposition: S/p epidural injection today with Dr. Hopkins, D/c in the a.m. Full code. Minutes to complete discharge: 60 Discharge Summary Reason For Visit: INTRACTABLE PAIN; PAIN BILATERAL EXTREMITIES Current Active Problems Degenerative lumbar spinal stenosis (Acute) Diastolic heart failure (Acute) Difficulty in walking (Acute) Edema (Acute) Hypertension (Acute) Intractable pain (Acute) Leg pain, bilateral (Acute) Osteoarthritis, hip, bilateral (Acute) Primary osteoarthritis of right hip (Acute) Condition: Stable - Instructions Diet, Activity, Other Instructions: Please continue all medications as prescribed. Monitor cbc/cmp. Patient is on Lasix twice per day. Referrals: Kay Rucker MD [Primary Care Provider] - Disposition: [facility] - Home Medications Comprehensive Discharge Medication List: Ambulatory Orders Aspirin [ASA -] 81 mg PO DAILY 12/06/16 Atorvastatin Ca [Lipitor] 10 mg PO HS 12/06/16 Carvedilol [Coreg -] 25 mg PO BID 12/06/16 Gabapentin [Neurontin -] 300 mg PO BID 12/06/16 Losartan Potassium 25 mg PO DAILY 12/06/16 Oxycodone HCl/Acetaminophen [Percocet 5-325 mg Tablet] 1 tab PO Q4H PRN Oxycodone Sr [Oxycontin] 0 mg PO BID 12/06/16 Pramipexole Di-HCl [Mirapex] 0.5 mg PO BID 12/06/16 Acetaminophen [Tylenol .Regular Strength -] 650 mg PO Q6H tablet 12/13/16 Carvedilol [Coreg -] 25 mg PO BID tablet 12/13/16 Docusate Sodium [Colace -] 100 mg PO TID #30 tab 12/13/16 Enoxaparin [Lovenox -] 40 mg SQ DAILY #30 syringe 12/13/16 Furosemide [Lasix] 40 mg PO BID #60 tablet 12/13/16 Lidocaine 5% Patch [Lidoderm -] 2 patch TP DAILY patch 12/13/16 Oxycodone Sr [Oxycontin] 30 mg PO BID #30 tab MDD 2 tabs 12/13/16 Pantoprazole Sodium [Protonix -] 40 mg PO DAILY #30 tab 12/13/16 Polyethylene Glycol 3350 [Miralax 119 gm Btl -] 17 gm PO DAILY #1 bottle Potassium Chloride [K-Dur -] 20 meq PO BID #60 tab 12/13/16 Sennosides [Senna -] 2 tab PO HS #60 tablet 12/13/16 This patient is new to me today: No Emergency Visit: Yes ED Registration Date: 12/07/16 Care time: The patient presented to the Emergency Department on the above date and was hospitalized for further evaluation of their emergent condition. Critical Care patient: No - Discharge Referral Referred to [facility] No
[2016-12-14] MEDS: ENOXAPARIN NA (PORCINE) 40 MG/0.4 ML DISP.SYRIN SQ SCH (17:55)
--- NOTE | 2016-12-14 21:18 | OP ---
DATE OF OPERATION: 12/14/2016 PREOPERATIVE DIAGNOSES: Low-back pain, spinal stenosis, lumbar radiculopathy on the right side. POSTOPERATIVE DIAGNOSES: Low-back pain, spinal stenosis, lumbar radiculopathy on the right side. PROCEDURE: Lumbar epidural steroid injection, right side, L3-L4, interlaminar. ANESTHESIA: Local and MAC. ANESTHESIOLOGIST: Cullen Dsouza MD PROCEDURE: I discussed with her and her daughter about risks, benefits and alternatives treatment, not only limited to infection, fever, headache, numbness, tingling, weakness, hematoma, allergic reaction, injury to muscles, nerves, and blood vessels. The patient understood, agreed, and signed the written consent. The patient was placed in the prone position with abdomen, legs, and head supported with pillows. The lumbosacral area was prepped, draped, with Betadine x3 and alcohol x3. The patient was given IV sedation. At level of L3-L4 on right side was identified under fluoroscopy. At this level, 1% lidocaine was infiltrated into the skin and subcutaneous tissue, 3 mL. A 20-gauge 3-1/2-inch Tuohy needle was used to approach the epidural space through loss of resistance technique, interlaminar approach with intermittent fluoroscopy both in AP and oblique view. Aspiration was done, which was negative for blood and CSF. A solution containing 3 mL of Celestone mixed with 2 mL of 0.25% Marcaine and 1 mL of normal saline, total of 6 mL was injected at this level after negative aspiration. While needle was withdrawn, 1 mL of 1% lidocaine was infiltrated. Patient tolerated the procedure well. There was no immediate complication. Betadine was wiped off. A sterile bandage was placed. Patient was recovered and then transferred to the floor. Patient will resume her regular activity and diet. Postoperatively I also discussed with her daughter. JOSEPH TERRELL M.D. [id number]
[2016-12-14] MEDS ORDERED: PT OWN MED DRAWER 7, Y5N ONE (22:51)
[2016-12-14] MEDS: ATORVASTATIN CA 10 MG TABLET (FP) PO SCH (23:04)
[2016-12-14] MEDS: SENNOSIDES 8.6MG TABLET (FP) PO SCH (23:06)
[2016-12-15] MEDS: DOCUSATE SODIUM 100 MG CAPSULE (FP) PO SCH (06:24)
[2016-12-15] MEDS: CYCLOBENZAPRINE HCL 10 MG TABLET (FP) PO SCH (06:24)
[2016-12-15] MEDS: FUROSEMIDE 40 MG/4 ML INJECTABLE VIAL IVPUSH SCH (06:25)
[2016-12-15 09:09] LABS: CALCIUM 10.1 mg/dL (8.5-10.1); COCKROFT - GAULT 62.271; CREATININE 0.8 mg/dL (0.55-1.02); MAGNESIUM 2.2 mg/dL (1.8-2.4); PHOSPHOROUS 3.4 mg/dL (2.5-4.9)
[2016-12-15] MEDS ORDERED: PT OWN MED DRAWER 7, Y5N ONE (09:44)
[2016-12-15] MEDS: CARVEDILOL 25 MG TABLET (FP) PO SCH (09:47)
[2016-12-15] MEDS: PANTOPRAZOLE 40 MG TABLET (FP) PO SCH (09:47)
[2016-12-15] MEDS: ENOXAPARIN NA (PORCINE) 40 MG/0.4 ML DISP.SYRIN SQ SCH (09:47)
[2016-12-15] MEDS: LOSARTAN POTASSIUM 25 MG TABLET PO SCH (09:47)
[2016-12-15] MEDS: oxyCODONE HCL 10 MG SUSTAINED ACTING TABLET PO SCH (09:48)
[2016-12-15] MEDS: POLYETHYLENE GLYCOL 3350 119 GM BTL PO SCH (09:49)
[2016-12-15] MEDS: PRAMIPEXOLE DIHYDROCHLORIDE 0.5 MG TABLET PO SCH (09:49)
[2016-12-15] MEDS: LIDOCAINE 5% TOPICAL PATCH TP SCH (09:49)
[2016-12-15] MEDS: POTASSIUM CHLORIDE TABS 20 MEQ TABLET.ER (FP) PO SCH (09:49)
--- NOTE | 2016-12-15 10:40 | PN ---
Physical Exam: SUBJECTIVE: Patient seen and examined oob to chair. She is ambulatory and able to get out of chair without assist and sever pain. OBJECTIVE: Vital Signs Period Temp Pulse Resp BP Sys/Naqvi Pulse Ox Last 24 Hr 97.9 F-98.3 F 81-98 18-20 112-158/50-92 96 PE Neuro: alert, awake, cn 2-12intact Pulm: CTAB CV: s1 s2 rrr no mrg Abd: s nt nd + bs Ext: b/l le edema +1- improved, RLE still with anterior sub patellar knee swelling (local) Msk: R hip tenderness Laboratory Results - last 24 hr 12/15/16 07:30 Sodium 142 Potassium 4.7 D Chloride 99 Carbon Dioxide 29 Anion Gap 14 BUN 25 H D Creatinine 0.8 Random Glucose 156 H Calcium 10.1 Phosphorus 3.4 Magnesium 2.2 Imaging: MRI lumbar spine which demonstrated multilevel disc bulging Assessment: 53 year old female admitted with intractable lower extremity pain and worsening b/l lower extremity edema Plan: 1. Bilateral LE edema - Likely from diastolic dysfunction - Improved - Continue Lasix 40 IV BID - Renal fx stable, renal outpt follow up 2. Newly dx: acute grade 1 diastolic dysfunction - ECHO 12/08: grade 1 diastolic dysfunction, LV size, fxn, normal, no wall motion abnormality, RVSP 30-40mmhg, mild PulmHTN, mod TR - Coreg 25mg BID - Losartan 25mg daily 3. Intractable b/l leg pain/weakness/inability to ambulate - Severe OA s/p steroid injection 12/14 - Ambulating on discharge - Stop flexeril, resume home neurontin 300mg BID - Oxycontin 10mg BID - Oxycodone 5mg q6hr prn breakthrough pain - Completed 24hr decadron 4mg q6 12/09/16 - Pain mgmt follow up in 2 week, Dr. Manuel Hopkins 4. HTN - Coreg 25 BID - Losartan 25 Daily 5. HLD - Lipitor 40 HS 6. Constipation - Senna HS - Miralax daily - Colace TID 7. R hip severe degenerative changes - Scheduled for hip replacement 12/30 - Dr. Ramos follow up Dispo: - SNF, [facility] - Daughter and pt aware and agree to above plan. Problem List - Problems (1) Edema Code(s): R60.9 - EDEMA, UNSPECIFIED (2) Hypertension Code(s): I10 - ESSENTIAL (PRIMARY) HYPERTENSION Qualifiers: Hypertension type: essential hypertension Qualified Code(s): I10 - Essential (primary) hypertension (3) Intractable pain Code(s): R52 - PAIN, UNSPECIFIED (4) Leg pain, bilateral Code(s): M79.604 - PAIN IN RIGHT LEG M79.605 - PAIN IN LEFT LEG (5) Osteoarthritis, hip, bilateral Code(s): M16.0 - BILATERAL PRIMARY OSTEOARTHRITIS OF HIP Qualifiers: Osteoarthritis type: primary Qualified Code(s): M16.0 - Bilateral primary osteoarthritis of hip
--- NOTE | 2016-12-15 11:03 | DS ---
Physical Exam: SUBJECTIVE: Patient seen and examined oob to chair. She is ambulatory and able to get out of chair without assist and sever pain. OBJECTIVE: Vital Signs Period Temp Pulse Resp BP Sys/Naqvi Pulse Ox Last 24 Hr 97.9 F-98.3 F 81-98 18-20 112-158/50-92 96 PE Neuro: alert, awake, cn 2-12intact Pulm: CTAB CV: s1 s2 rrr no mrg Abd: s nt nd + bs Ext: b/l le edema +1- improved, RLE still with anterior sub patellar knee swelling (local) Msk: R hip tenderness Laboratory Results - last 24 hr 12/15/16 07:30 Sodium 142 Potassium 4.7 D Chloride 99 Carbon Dioxide 29 Anion Gap 14 BUN 25 H D Creatinine 0.8 Random Glucose 156 H Calcium 10.1 Phosphorus 3.4 Magnesium 2.2 HOSPITAL COURSE: Date of Admission:12/07/16 Date of Discharge: 12/15/16 Minutes to complete discharge: 35 Discharge Summary Reason For Visit: INTRACTABLE PAIN; PAIN BILATERAL EXTREMITIES Current Active Problems Degenerative lumbar spinal stenosis (Acute) Diastolic heart failure (Acute) Difficulty in walking (Acute) Edema (Acute) Hypertension (Acute) Intractable pain (Acute) Leg pain, bilateral (Acute) Osteoarthritis, hip, bilateral (Acute) Primary osteoarthritis of right hip (Acute) Hospital Course: Initial Hospital Course: Briefly, this 76 year old female with HTN, HLD, severe OA, and hip replacement 9 years ago presented to the ED with bilateral lower extremity edema and intractable pain. For 2 weeks prior to admission, the swelling in the legs began and worsened with increased pain levels. While in the ED pt stated her legs felt better in a dependent position. Her daughter noted the RLE was more swollen than the left however now the Left is increased in edema with a anterior villarreal fluid collection the size of a to. She denies hx of CHF, DM, kidney issues. She had gained weight due to increase in food intake and stated shes been sedentary. She has not had any issues following her first hip replacement until now and is scheduled for R hip replacement on 12/30. Imaging: MRI lumbar spine which demonstrated multilevel disc bulging Subsequent Hospital Course/Progress Note/Discharge Summary by a/p: Assessment: 53 year old female admitted with intractable lower extremity pain and worsening b/l lower extremity edema Plan: 1. Bilateral LE edema - Likely from diastolic dysfunction - Improved - s/p IV diuresis with lasix BID - Transition to Lasix 40mg PO BID - Renal fx stable, renal outpt follow up 2. Newly dx: acute grade 1 diastolic dysfunction - ECHO 12/08: grade 1 diastolic dysfunction, LV size, fxn, normal, no wall motion abnormality, RVSP 30-40mmhg, mild PulmHTN, mod TR - Coreg 25mg BID - Losartan 25mg daily 3. Intractable b/l leg pain/weakness/inability to ambulate - Severe OA s/p steroid injection 12/14 - Ambulating on discharge - Stop flexeril, resume home neurontin 300mg BID - Oxycontin 10mg BID - Oxycodone 5mg q6hr prn breakthrough pain - Completed 24hr decadron 4mg q6 12/09/16 - Pain mgmt follow up in 2 week, Dr. Manuel Hopkins 4. HTN - Coreg 25 BID - Losartan 25 Daily 5. HLD - Lipitor 40 HS 6. Constipation - Senna HS - Miralax daily - Colace TID 7. R hip severe degenerative changes - Scheduled for hip replacement 12/30 - Dr. Ramos follow up Dispo: - SNF, [facility] - Daughter and pt aware and agree to above plan Condition: Stable - Instructions Diet, Activity, Other Instructions: Please return to the ED for any new, persistent, or worsening symptoms. Follow up with your PCP in 1 week. Continue all medications as directed on discharge home medication list. New medication: lasix 40mg BID Follow up with Dr. Ventura for blood work next week Lovenox 40mg to continue @ rehab until patient fully ambulatory Referrals: Will Ramos MD [Staff Physician] - Dominik Pappas MD [Staff Physician] - Kay Rucker MD [Primary Care Provider] - Manuel Hopkins MD [Staff Physician] - 2 Weeks [facility] - Home Medications Comprehensive Discharge Medication List: Ambulatory Orders Aspirin [ASA -] 81 mg PO DAILY 12/06/16 Atorvastatin Ca [Lipitor] 10 mg PO HS 12/06/16 Gabapentin [Neurontin -] 300 mg PO BID 12/06/16 Losartan Potassium 25 mg PO DAILY 12/06/16 Oxycodone HCl/Acetaminophen [Percocet 5-325 mg Tablet] 1 tab PO Q4H PRN Pramipexole Di-HCl [Mirapex] 0.5 mg PO BID 12/06/16 Acetaminophen [Tylenol .Regular Strength -] 650 mg PO Q6H tablet 12/13/16 Carvedilol [Coreg -] 25 mg PO BID tablet 12/13/16 Docusate Sodium [Colace -] 100 mg PO TID #30 tab 12/13/16 Enoxaparin [Lovenox -] 40 mg SQ DAILY #30 syringe 12/13/16 Furosemide [Lasix] 40 mg PO BID #60 tablet 12/13/16 Lidocaine 5% Patch [Lidoderm -] 2 patch TP DAILY patch 12/13/16 Pantoprazole Sodium [Protonix -] 40 mg PO DAILY #30 tab 12/13/16 Polyethylene Glycol 3350 [Miralax 119 gm Btl -] 17 gm PO DAILY #1 bottle Potassium Chloride [K-Dur -] 20 meq PO BID #60 tab 12/13/16 Sennosides [Senna -] 2 tab PO HS #60 tablet 12/13/16 Oxycodone Sr [Oxycontin] 10 mg PO BID #60 tab MDD 2 tabs 12/15/16 Problem List - Problems (1) Edema Code(s): R60.9 - EDEMA, UNSPECIFIED (2) Hypertension Code(s): I10 - ESSENTIAL (PRIMARY) HYPERTENSION Qualifiers: Hypertension type: essential hypertension Qualified Code(s): I10 - Essential (primary) hypertension (3) Intractable pain Code(s): R52 - PAIN, UNSPECIFIED (4) Leg pain, bilateral Code(s): M79.604 - PAIN IN RIGHT LEG M79.605 - PAIN IN LEFT LEG (5) Osteoarthritis, hip, bilateral Code(s): M16.0 - BILATERAL PRIMARY OSTEOARTHRITIS OF HIP Qualifiers: Osteoarthritis type: primary Qualified Code(s): M16.0 - Bilateral primary osteoarthritis of hip This patient is new to me today: No Emergency Visit: Yes ED Registration Date: 12/07/16 Care time: The patient presented to the Emergency Department on the above date and was hospitalized for further evaluation of their emergent condition. Critical Care patient: No - Discharge Referral Referred to [facility] No
[2016-12-15 14:52] VITALS: BP 138/87; PULSE 103; TEMP 98.1
[2016-12-15] MEDS ORDERED: GABAPENTIN 300 MG CAPSULE (FP) PO SCH (22:00)
== END 2016-12-15 12:05 | DRG 551 ==
LOC: JER 10:33 → JERBED 15:44 → J5S 17:40 → OBSVTOIN 12-07 11:41
PROVIDERS: ADMIT Internal Medicine; ATTEND Nurse Practitioner Acute Care
PROC: 3E0R3BZ Introduction of Anesthetic Agent into Spinal Canal, Percutaneous Approach (ICD-10-PCS; 2016-12-14)
PROC: 3E0R33Z Introduction of Anti-inflammatory into Spinal Canal, Percutaneous Approach (ICD-10-PCS; principal; 2016-12-14 12:00)
DX: M51.16 Intervertebral disc disorders with radiculopathy, lumbar region (principal); I50.31 Acute diastolic (congestive) heart failure; E78.5 Hyperlipidemia, unspecified; G25.81 Restless legs syndrome; M47.9 Spondylosis, unspecified; M48.06 Spinal stenosis, lumbar region; R26.2 Difficulty in walking, not elsewhere classified; G89.29 Other chronic pain; Z96.642 Presence of left artificial hip joint; R60.0 Localized edema; K59.00 Constipation, unspecified; Z99.3 Dependence on wheelchair; I27.2 Other secondary pulmonary hypertension; I07.1 Rheumatic tricuspid insufficiency; I11.0 Hypertensive heart disease with heart failure; E87.6 Hypokalemia; M16.11 Unilateral primary osteoarthritis, right hip; R41.0 Disorientation, unspecified; T40.605A Adverse effect of unspecified narcotics, initial encounter
CPT/HCPCS: 36415; 71010-TC; 72148-TC; 73502-TC-RT; 76000-TC; 80048; 80053; 81003; 81015; 82570; 83036; 83735; 83880; 84100; 84156; 84443; 85025; 93005; 93010; 93306-TC; 93925-TC; 93970-TC; 97116-GP; 97161-GP; 99283-25; G0378

== ENCOUNTER 2017-02-03 09:38 | Inpatient (IN) | payer OTHER, MEDICARE ==
[2017-01-26 13:37] VITALS: BMI 27.4
[~2017-02-03 09:38] MED LIST: PANTOPRAZOLE 40 MG TABLET (FP) PO ONE
[2017-02-03] MEDS ORDERED: oxyCODONE HCL 10 MG SUSTAINED ACTING TABLET PO ONE (09:56)
[2017-02-03] MEDS ORDERED: ROPIVICAINE 0.2%/MORPH PF/KETOROLAC - 51ML DISP.SYRINGE IA ONE (09:56)
[2017-02-03] MEDS ORDERED: TRANEXAMIC ACID 1000 MG/10 ML VIAL IVPUSH ONE (09:56)
[2017-02-03] MEDS ORDERED: GABAPENTIN 300 MG CAPSULE (FP) PO ONE (09:56)
[2017-02-03] MEDS ORDERED: CELECOXIB 200 MG CAPSULE PO ONE ×2 (09:56→22:00)
[2017-02-03] MEDS ORDERED: CEFAZOLIN 1 GM/D5W 50 ML IVPB ONE (11:15)
[2017-02-03] MEDS ORDERED: EPINEPHrine/PF 1 MG/1 ML (1:1,000) AMPULE ONE (11:31)
[2017-02-03] MEDS ORDERED: DEXAMETHASONE SOD PHOSPHATE/PF 10 MG/ML SDV ONE (11:31)
[2017-02-03] MEDS ORDERED: LIDOCAINE 1% P/F 10 MG/ML VIAL ONE (11:32)
[2017-02-03] MEDS ORDERED: BUPIVACAINE HCL/PF (5 MG/ML) 30 ML VIAL IJ ONE (11:32)
[2017-02-03] MEDS ORDERED: MIDAZOLAM HCL 2 MG/2 ML SINGLE DOSE VIAL ONE (11:32)
--- NOTE | 2017-02-03 12:26 | HP ---
Admitting History and Physical - Admission Chief Complaint: severe right hip OA History Source: Patient, Family Member, Medical Record Limitations to Obtaining History: No Limitations - Past Medical History Cardiovascular: Yes: HTN, Hyperlipdemia Pulmonary: Yes: Other. No: Asthma, Bronchitis, Cancer, COPD, O2 Dependent, Pneumonia, Previously Intubated, Pulmonary Embolus, Pulmonary Fibrosis, Sleep Apnea ...: No Musculoskeletal: Yes: Osteoarthritis Rheumatology: Yes: Other (Osteoarthritis) - Past Surgical History Past Surgical History: Yes: Joint Replacement (left HIP ) - Smoking History Smoking history: Never smoked Have you smoked in the past 12 months: No - Alcohol/Substance Use Hx Alcohol Use: No (RARE) History of Substance Use: reports: None - Social History ADL: Independent Home Medications - Allergies Allergies/Adverse Reactions: Allergies Allergy/AdvReac Type Severity Reaction Status Date / Time Penicillins Allergy Itching Verified 02/03/17 10:49 - Home Medications Home Medications: Ambulatory Orders Atorvastatin Ca [Lipitor] 10 mg PO HS 12/06/16 Losartan Potassium 25 mg PO DAILY 12/06/16 Oxycodone HCl/Acetaminophen [Percocet 5-325 mg Tablet] 1 tab PO Q4H PRN Pramipexole Di-HCl [Mirapex] 0.5 mg PO BID 12/06/16 Acetaminophen [Tylenol .Regular Strength -] 650 mg PO Q6H tablet 12/13/16 Carvedilol [Coreg -] 25 mg PO BID tablet 12/13/16 Oxycodone Sr [Oxycontin] 10 mg PO BID #60 tab MDD 2 tabs 12/15/16 Alprazolam [Xanax] 0.25 mg PO DAILY 02/03/17 Ferrous Gluconate [Iron] 256 mg PO DAILY 02/03/17 Furosemide [Lasix] 40 mg PO DAILY 02/03/17 Ibuprofen [Motrin -] 200 mg PO QID PRN 02/03/17 Mv, Min #36/Iron,Carbonyl/FA [Geritol Complete Tablet] 1 tab PO DAILY 02/03/17 Physical Examination Vital Signs: Vital Signs Temperature 98.5 F 02/03/17 10:24 Pulse Rate 78 02/03/17 10:24 Respiratory Rate 16 02/03/17 10:24 Blood Pressure 154/85 02/03/17 10:24 O2 Sat by Pulse Oximetry (%) 96 02/03/17 10:48 Constitutional: Yes: Well Nourished, No Distress, Calm Eyes: Yes: WNL, Conjunctiva Clear, EOM Intact HENT: Yes: WNL, Atraumatic, Normocephalic Neck: Yes: WNL, Supple Cardiovascular: Yes: WNL, Regular Rate and Rhythm Respiratory: Yes: WNL, Regular Gastrointestinal: Yes: WNL, Soft ...Rectal Exam: Yes: Deferred Musculoskeletal: Yes: Back Pain, Joint Stiffness, Joint Swelling, Muscle Pain, Muscle Weakness Extremities: Yes: WNL Edema: Yes Edema: LLE: 2+, RLE: 2+ Peripheral Pulses WNL: Yes Integumentary: Yes: WNL Neurological: Yes: WNL, Alert, Oriented ...Motor Strength: WNL Psychiatric: Yes: WNL, Alert, Oriented Labs: reviewed in chart Imaging - Results X-ray: Image Reviewed Cat Scan: Report Reviewed, Image Reviewed Problem List - Problems (1) Primary osteoarthritis of right hip Code(s): M16.11 - UNILATERAL PRIMARY OSTEOARTHRITIS, RIGHT HIP Assessment/Plan 76yo female with severe right hip OA for R COCO
[2017-02-03] MEDS ORDERED: BUPIVACAINE HCL/PF 0.5% (5MG/ML) 10 ML VIAL ONE (12:57)
[2017-02-03] MEDS ORDERED: ONDANSETRON 4 MG/2 ML VIAL ONE (13:18)
[2017-02-03] MEDS ORDERED: TRANEXAMIC ACID 1000 MG/10 ML VIAL ONE (13:18)
[2017-02-03] MEDS ORDERED: ceFAZolin SODIUM 1 GM VIAL ONE ×3 (13:18→17:47)
[2017-02-03] MEDS ORDERED: DEXAMETHASONE SOD PHOSPHATE 4 MG/1 ML VIAL ONE (13:18)
[2017-02-03] MEDS ORDERED: oxyCODONE HCL 5 MG TABLET PO PRN (14:03)
[2017-02-03] MEDS ORDERED: ONDANSETRON 4 MG/2 ML VIAL IVPUSH PRN (14:03)
[2017-02-03] MEDS ORDERED: ePHEDrine SULFATE 50 MG/1 ML AMPULE ONE (14:09)
[2017-02-03] MEDS ORDERED: LACTATED RINGERS SOLUTION 1,000 ML IV SCH ×2 (14:15→17:15)
--- NOTE | 2017-02-03 17:02 | OP ---
Operative Note - Note: Operative Date: 02/03/17 Pre-Operative Diagnosis: right hip OA Post-Operative Diagnosis: Same as Pre-op Surgeon: Will Ramos Molasses Feed Mixer: Shahrzad Melendrez Anesthesia: Spinal Estimated Blood Loss (mls): 250
[2017-02-03] MEDS ORDERED: LABETALOL HCL 5 MG/1 ML (100MG/20 ML VIAL) IVPUSH ONE ×2 (17:06→17:14)
[2017-02-03] MEDS ORDERED: MAG HYDROX/AL HYDROX/SIMETH 30 ML UNIT-DOSE CUP PO PRN (17:08)
[2017-02-03] MEDS ORDERED: ONDANSETRON 4 MG/2 ML VIAL IVPB PRN (17:08)
[2017-02-03] MEDS ORDERED: MAGNESIUM HYDROX 2400MG/30ML ORAL SUSPENSION 30 ML CUP PO PRN (17:08)
[2017-02-03] MEDS ORDERED: LABETALOL HCL 5 MG/1 ML (100MG/20 ML VIAL) ONE (17:11)
[2017-02-03] MEDS ORDERED: KETOROLAC TROMETHAMINE 30 MG/1 ML VIAL ONE (17:47)
[2017-02-03] MEDS ORDERED: ACETAMINOPHEN 325 MG TABLET (FP) ONE (17:47)
[2017-02-03] MEDS ORDERED: traMADol HCL 50 MG TABLET ONE (17:48)
[2017-02-03] MEDS ORDERED: KETOROLAC TROMETHAMINE 30 MG/1 ML VIAL IVPUSH ONE (17:51)
[2017-02-03] MEDS ORDERED: traMADol HCL 50 MG TABLET PO ONE (17:55)
[2017-02-03] MEDS ORDERED: ACETAMINOPHEN 650 MG/20.3 ML ORAL SOLUTION (CUPS) PO ONE (17:55)
[2017-02-03] MEDS: KETOROLAC TROMETHAMINE 30 MG/1 ML VIAL IVPUSH SCH ×2 (17:58→23:39)
[2017-02-03] MEDS ORDERED: ceFAZolin SODIUM 1 GM VIAL IVPB ONE (18:03)
[2017-02-03] MEDS: traMADol HCL 50 MG TABLET PO SCH ×2 (18:32→23:39)
[2017-02-03] MEDS: CEFAZOLIN 1 GM/D5W 50 ML IVPB SCH (18:32)
[2017-02-03] MEDS: ACETAMINOPHEN 325 MG TABLET (FP) PO SCH ×2 (18:32→23:38)
--- NOTE | 2017-02-03 19:45 | SPEC ---
DATE OF OPERATION: 02/03/2017 PREOPERATIVE DIAGNOSIS: Right hip osteoarthritis. POSTOPERATIVE DIAGNOSIS: Right hip osteoarthritis. PROCEDURE: Right total hip replacement Makoplasty, robotic navigation. ATTENDING: Brent Price M.D. CONDUCTOR FREIGHT: Tre Crowe ANESTHESIA: Spinal plus sedation. ESTIMATED BLOOD LOSS: 250 mL. COMPLICATIONS: None. SPECIMENS: Resected bone was sent for pathology and analysis. DISPOSITION: The patient was transferred to the PACU in stable condition. IMPLANTS USED: Lily Accolade 2 size 5 femoral component, Burton Tritanium 52-mm acetabular component with 25 and 30-mm screws, MDM bipolar head ball with plus 3 offset inner head. INDICATION: This is a 76-year-old female who had longstanding severe right hip osteoarthritis. She was seen in the office by me and because of the severity of her arthritic degeneration, significant limb length discrepancy, and almost inability to ambulate, she was indicated for a total hip replacement, as there would be no conservative treatments that would significantly help her pain. The risks, benefits, and alternatives to surgery were explained to the patient, and she and her family elected to proceed with the surgery. Prior to the surgery, the patient developed acute worsening of her pain in addition to symptoms related to lumbar radiculopathy, and the surgery was postponed. The patient could barely walk, and I felt that she would be at high risk for complications after surgery. She went to a rehabilitation center and recovered, and her ambulation improved. She was seen again in the office and indicated for surgery. On the day of surgery, the patient was taken to the operating room and placed on the OR table. Spinal anesthesia was administered by the anesthesiologist. The patient was then positioned in the lateral decubitus position on the table and all bony prominences were padded. An axillary roll was placed. The operative hip was then prepped and draped in the usual sterile fashion and intravenous antibiotics were given for infection prophylaxis. A surgical time-out was then performed with the team, and the patients identity, procedure, side, availability of implants, and the administration of antibiotics were confirmed. An approximately 15-cm longitudinal incision was made through the skin centered on the greater trochanter of the hip. This dissection was carried down through the subcutaneous tissues to the deep fascia. This fascia was then incised and a Cobra was placed around the inferior femoral neck. Electrocautery was used to reflect the anterior 40% of the gluteus medius and minimus starting at the musculotendinous junction and leaving a cuff for closure. This was reflected to reveal the capsule of the hip joint. An anterior capsulectomy was performed and the femoral head and neck were visualized. Grade 4 changes were noted diffusely throughout the joint. At this point, three small stab incisions were made superior to the main incision along the iliac crest. Three self-drilling Steinmann pins were then placed and the [employer] pelvic array was attached. Reference points on the limb were then entered into the robotic device and the limb length deficiency, offset, and femoral neck resection level were then calculated by the software. The hip was then dislocated with traction and external rotation. An oscillating saw was used to make the femoral neck cut at the level previously templated, and the femoral head was removed. Attention was then turned to the acetabulum. Retractors were then placed around the acetabulum and the labrum was removed. An acetabular checkpoint pin and the [employer] software were used to register the contours of the acetabulum. The acetabulum was then reamed in a single stage to the preoperatively templated size using the [employer] robotic arm. The appropriately sized cup was then impacted and had solid fixation as well as the preset inclination and version of 40 and 20 degrees, respectively. A polyethylene liner was then placed in the cup. Attention was then turned back to the femur, which was externally rotated for improved visualization. A femoral neck elevator was used to present the femoral neck cut, a box osteotome was used to enter the femoral canal, and a canal finder was used to go down the femoral shaft. The Que broaches were used sequentially until the optimal scratch fit was achieved. This correlated with the preoperatively templated size. From here, several different offset head and neck configurations were tested until excellent stability and length were obtained. These measurements were quantified using the [employer] software. All trial components were then removed, the femur was copiously irrigated, and the final components were placed. Leg length and stability were checked again and found to be excellent. Irrigation was performed again. Wound closure was started by repairing the abductor muscles with a no. 2 FiberWire stitch in a Krackow configuration passed through bone tunnels in the greater trochanter and tied over a bony bridge. This repair was then reinforced with a 0 V-Loc 180 barbed suture. Next, no. 1 Polysorb and 0 V-Loc 180 were used to close the fascia. The deep subcutaneous tissue was closed with no. 1 Polysorb sutures, and 2-0 Polysorb was used for the superficial subcutaneous tissue. The skin was closed using both 3-0 V-Loc 90 suture in a running subcuticular fashion and SwiftSet skin adhesive. The Que array and pins were removed from the iliac crest and the stab incision sites were irrigated and closed with 4-0 Polysorb sutures and SwiftSet skin adhesive. Once this was completed, a sterile dressing was applied. The patient was then awakened and taken to the PACU in stable condition. ADDENDUM: After final implants were placed, the 3-minute dilute Betadine lavage was performed according to the [place] protocol. The area was then again thoroughly irrigated with normal saline. The pulsatile lavage after this wound closure was begun. BRENT PRICE M.D. [id number]
[2017-02-03] MEDS: ASCORBIC ACID 500 MG TABLET (FP) PO SCH (21:11)
[2017-02-03] MEDS: oxyCODONE HCL 10 MG SUSTAINED ACTING TABLET PO SCH (21:11)
[2017-02-03] MEDS: SENNOSIDES/DOCUSATE COMBO (SENNA PLUS) TABLET (UD) PO SCH (21:11)
[2017-02-04] MEDS: CEFAZOLIN 1 GM/D5W 50 ML IVPB SCH (01:33)
[2017-02-04] MEDS: ACETAMINOPHEN 325 MG TABLET (FP) PO SCH ×3 (06:08→17:48)
[2017-02-04] MEDS: KETOROLAC TROMETHAMINE 30 MG/1 ML VIAL IVPUSH SCH ×2 (06:08→13:03)
[2017-02-04 08:14] LABS: ANION GAP 5 (8-16); CALCIUM 8.2 mg/dl (8.4-10.2); CO2 25 mmol/L (22-28); CREATININE 0.7 mg/dl (0.6-1.3); GLUCOSE,RANDOM 134 mg/dl (74-106)
[2017-02-04 08:16] LABS: MCH 30.9 pg (25.7-33.7); MCHC 33.3 g/dl (32.0-36.0); MEAN CELL VOLUME 92.8 fl (80-96); PLATELET COUNT 311 K/MM3 (134-434); RDW 13.4 % (11.6-15.6); WHITE BLOOD COUNT 9.2 K/mm3 (4.0-10.8)
--- NOTE | 2017-02-04 09:01 | PN ---
Progress Note (short form) - Note Progress Note: Anesthesia postop note S/P Right hip arthroplasty, POD#1. Pat seen and examined. VSS. No apparent post anesthesia complications. Pain well controlled. Signed off.
--- NOTE | 2017-02-04 09:03 | PN ---
Progress Note (short form) - Note Progress Note: Pt seen and examined. Comfortable AVSS Selected Entries 02/04/17 02/04/17 06:00 08:46 Temperature 98.4 F Pulse Rate 84 Respiratory 19 Rate Blood Pressure 124/40 O2 Sat by Pulse 94 L 97 Oximetry (%) Oxygen Delivery Nasal Cannula Nasal Cannula Method Laboratory Tests 02/04/17 02/04/17 07:30 07:30 WBC 9.2 Hgb 8.9 L Hct 26.7 L Plt Count 311 Sodium 134 L Potassium 4.2 Chloride 104 Carbon Dioxide 25 Anion Gap 5 L BUN 19 H Creatinine 0.7 Random Glucose 134 H Calcium 8.2 L RLE: c/d/i, NVID A/P 76yo female POD#1 s/p R COCO 1. PT/OOB - WBAT RLE 2. D/C tomorrow to home vs SNF based on how she does with PT. Problem List - Problems (1) Primary osteoarthritis of right hip Code(s): M16.11 - UNILATERAL PRIMARY OSTEOARTHRITIS, RIGHT HIP
[2017-02-04] MEDS: ASCORBIC ACID 500 MG TABLET (FP) PO SCH ×2 (09:13→21:18)
[2017-02-04] MEDS: SENNOSIDES/DOCUSATE COMBO (SENNA PLUS) TABLET (UD) PO SCH ×2 (09:14→21:26)
[2017-02-04] MEDS: PANTOPRAZOLE 40 MG TABLET (FP) PO SCH (09:14)
[2017-02-04] MEDS: APIXABAN 2.5 MG TABLET PO SCH ×2 (09:14→21:18)
[2017-02-04] MEDS: FUROSEMIDE 40 MG TABLET (FP) PO SCH (09:15)
[2017-02-04] MEDS: MULTIVITAMINS (DAILY MVI) TABLET (FP) PO SCH (09:15)
[2017-02-04] MEDS: CARVEDILOL 25 MG TABLET (FP) PO SCH ×2 (09:16→21:18)
[2017-02-04] MEDS: LOSARTAN POTASSIUM 25 MG TABLET PO SCH (09:16)
[2017-02-04] MEDS: oxyCODONE HCL 10 MG SUSTAINED ACTING TABLET PO SCH ×2 (09:17→21:25)
[2017-02-04] MEDS: oxyCODONE HCL 5 MG TABLET PO PRN (09:18)
[2017-02-04] MEDS ORDERED: PRAMIPEXOLE DIHYDROCHLORIDE 0.25 MG TABLET PO SCH (10:00)
[2017-02-04] MEDS ORDERED: PRAMIPEXOLE DIHYDROCHLORIDE 0.5 MG TABLET PO SCH (10:00)
[2017-02-04] MEDS: traMADol HCL 50 MG TABLET PO SCH ×2 (13:02→17:48)
[2017-02-04] MEDS: PRAMIPEXOLE DIHYDROCHLORIDE 0.25 MG TABLET PO SCH (21:26)
[2017-02-04] MEDS ORDERED: ATORVASTATIN CA 10 MG TABLET (FP) PO SCH (22:00)
[2017-02-05] MEDS: ACETAMINOPHEN 325 MG TABLET (FP) PO SCH ×4 (00:16→17:51)
[2017-02-05] MEDS: traMADol HCL 50 MG TABLET PO SCH ×3 (00:17→17:52)
[2017-02-05] MEDS: oxyCODONE HCL 5 MG TABLET PO PRN (06:33)
[2017-02-05 08:27] LABS: MCH 30.4 pg (25.7-33.7); MEAN CELL VOLUME 92.2 fl (80-96); MEAN PLT VOLUME 7.6 fl (7.5-11.1); PLATELET COUNT 258 K/MM3 (134-434); RDW 14.1 % (11.6-15.6)
[2017-02-05 08:40] LABS: CREATININE 0.6 mg/dl (0.6-1.3); GLUCOSE,RANDOM 106 mg/dl (74-106)
[2017-02-05 08:41] LABS: ANION GAP 3 (8-16); CALCIUM 7.8 mg/dl (8.4-10.2); CO2 26 mmol/L (22-28)
[2017-02-05] MEDS: CARVEDILOL 25 MG TABLET (FP) PO SCH (10:52)
[2017-02-05] MEDS: APIXABAN 2.5 MG TABLET PO SCH (10:52)
[2017-02-05] MEDS: PRAMIPEXOLE DIHYDROCHLORIDE 0.25 MG TABLET PO SCH (10:52)
[2017-02-05] MEDS: SENNOSIDES/DOCUSATE COMBO (SENNA PLUS) TABLET (UD) PO SCH (10:52)
[2017-02-05] MEDS: oxyCODONE HCL 10 MG SUSTAINED ACTING TABLET PO SCH (10:52)
[2017-02-05] MEDS: LOSARTAN POTASSIUM 25 MG TABLET PO SCH (10:52)
[2017-02-05] MEDS: PANTOPRAZOLE 40 MG TABLET (FP) PO SCH (10:52)
[2017-02-05] MEDS: MULTIVITAMINS (DAILY MVI) TABLET (FP) PO SCH (10:52)
[2017-02-05] MEDS: ASCORBIC ACID 500 MG TABLET (FP) PO SCH (10:53)
[2017-02-05] MEDS: FUROSEMIDE 40 MG TABLET (FP) PO SCH (10:53)
[2017-02-05 14:15] VITALS: BP 137/61; PULSE 80; TEMP 98.6
--- NOTE | 2017-02-05 17:38 | PN ---
Progress Note (short form) - Note Progress Note: Pt seen and examined. Comfortable. Very happy with the results so far. Walked several hundred feet with PT. Able to get up and walk right now with no difficulty. H/H 7.4/22.5 but no clinical signs of anemia - not tachycardia, no hypotension, completely awake/alert w/o c/o dizziness or lethargy. AVSS Selected Entries 02/05/17 02/05/17 06:00 14:14 Temperature 98.6 F Pulse Rate 80 Respiratory 16 Rate Blood Pressure 137/61 O2 Sat by Pulse 92 L 91 L Oximetry (%) Oxygen Delivery Room Air Method Laboratory Tests 02/05/17 02/05/17 07:00 07:00 WBC 8.0 Hgb 7.4 L D Hct 22.5 L D Plt Count 258 Sodium 135 L Potassium 3.5 Chloride 106 Carbon Dioxide 26 Anion Gap 3 L BUN 18 Creatinine 0.6 Random Glucose 106 D Calcium 7.8 L RLE: c/d/i, NVID A/P 76yo female POD#2 s/p R COCO 1. PT/OOB - WBAT RLE 2. D/C home today. VNS to start tomorrow. 3. No need for transfusion right now was she has no clinical signs of anemia. Problem List - Problems (1) Primary osteoarthritis of right hip Code(s): M16.11 - UNILATERAL PRIMARY OSTEOARTHRITIS, RIGHT HIP
--- NOTE | 2017-02-07 15:16 | PATH ---
Surgical Pathology Report Patient Name: BLAINE KAPLAN Med. Rec. #: [id number] /Age/Gender: 1940 (Age: 76) / F Account: [id number] Location: [facility] MED-SURG Taken: 02/03/2017 Received: 02/03/2017 Reported: 02/07/2017 Physicians: Will Ramos M.D. Specimen(s) Received RIGHT FEMORAL HEAD Clinical History Right hip osteoarthritis Final Diagnosis FEMORAL HEAD, RIGHT, TOTAL HIP REPLACEMENT: DEGENERATIVE JOINT DISEASE. Electronically Signed Christine Fermin M.D. Gross Description Received in formalin, labeled "right femoral head," is a 5.4 x 5.0 x 2.7 cm. markedly deformed femoral head with a 1.4 cm in length portion of femoral neck attached. The margin of resection is smooth. There is a 4.8 cm in greatest dimension area of eburnation present. The remaining articular surface is nicole-yellow and focally granular. The underlying trabecular bone is yellow and hard. A territory sales representative section is submitted in one cassette, following decalcification. 02/04/201702/04/2017
--- NOTE | 2017-02-07 15:48 | SURG ---
Surgery Psychiatric Aides Teacher Note Psychiatric Aides Teacher: Shahrzad Melendrez PA-C Date of Service: 02/03/17 Diagnosis: right hip OA Procedure: Right total hip replacement makmervat I was present for the entirety of the operative procedure. For further detail, please refer to operative report. Visit type - Case Type Case Type: Scheduled Admission
== END 2017-02-05 18:13 | disposition home health service (06) | DRG 470 ==
LOC: FM/S 09:38
PROVIDERS: ADMIT Student in an Organized Health Care Education/Training Program; ATTEND Student in an Organized Health Care Education/Training Program
PROC: 8E0W0CZ Robotic Assisted Procedure of Trunk Region, Open Approach (ICD-10-PCS; 2017-02-03)
PROC: 0SR90JZ Replacement of Right Hip Joint with Synthetic Substitute, Open Approach (ICD-10-PCS; principal; 2017-02-03 13:50)
DX: M16.11 Unilateral primary osteoarthritis, right hip (principal); I10 Essential (primary) hypertension; E78.5 Hyperlipidemia, unspecified
CPT/HCPCS: 36415; 73523-TC; 80048; 85027; 86850; 86900; 86901; 88304-TC; 88311-TC; 94010; 94760; 97116-GP; 97162-GP

== ENCOUNTER 2018-08-31 06:02 | Day surgery (SDC) | payer OTHER, MEDICARE ==
[2018-08-25 10:34] VITALS: BMI 28.3
[~2018-08-31 06:02] MED LIST changes: -PANTOPRAZOLE 40 MG TABLET (FP) PO ONE; +oxyCODONE HCL 10 MG SUSTAINED ACTING TABLET PO STA
[2018-08-31] MEDS ORDERED: oxyCODONE HCL 10 MG SUSTAINED ACTING TABLET PO STA (07:00)
[2018-08-31] MEDS ORDERED: methylPREDNISolone ACET (DEPO) 40 MG/1 ML VIAL ONE (07:09)
[2018-08-31] MEDS ORDERED: LIDOCAINE 1%/EPI 1:100000 (20 ML MULTI DOSE VIAL) ONE (07:09)
[2018-08-31] MEDS ORDERED: THROMBIN (BOVINE) 5,000 UNIT VIAL TP ONE (07:09)
--- NOTE | 2018-08-31 07:13 | HP ---
History & Physical Update - History History: No Change - Physical Physical: No Change - Assessment Assessment: No Change - Plan Plan: No Change (Initial H&P is located in patient's paper chart. No new complaints or medications. Here today for elective L4/S1 laminectomy.)
[2018-08-31] MEDS ORDERED: MIDAZOLAM HCL 2 MG/2 ML SINGLE DOSE VIAL ONE (07:57)
[2018-08-31] MEDS ORDERED: BUPIVACAINE HCL/PF (5 MG/ML) 30 ML VIAL IJ ONE (07:58)
[2018-08-31] MEDS ORDERED: SODIUM CHLORIDE 0.9% P/F 10 ML VIAL IJ ONE (07:58)
[2018-08-31] MEDS ORDERED: ePHEDrine SULFATE 50 MG/1 ML AMPULE ONE (08:55)
[2018-08-31] MEDS ORDERED: DEXAMETHASONE SOD PHOSPHATE 4 MG/1 ML VIAL ONE (09:55)
[2018-08-31] MEDS ORDERED: ceFAZolin SODIUM 1 GM VIAL ONE (09:55)
[2018-08-31] MEDS ORDERED: ONDANSETRON 4 MG/2 ML VIAL ONE (09:55)
--- NOTE | 2018-08-31 10:41 | OP ---
Operative Note - Note: Operative Date: 08/31/18 Pre-Operative Diagnosis: L4-S1 spinal stenosis w/ bilat LE radiculopathy Operation: L4/S1 bilateral laminectomy Post-Operative Diagnosis: Same as Pre-op Surgeon: Evens Melchor Animal Caregiver: Austin Tompkins Anesthesiologist/HEATING ELEMENT REPAIRER: Griffin Zhao Anesthesia: Spinal Estimated Blood Loss (mls): 20 Fluid Volume Replaced (mls): 1,000 Operative Report Dictated: Yes
--- NOTE | 2018-08-31 10:42 | SURG ---
Surgery Automat Watcher Note Automat Watcher: Austin Tompkins PA-C Date of Service: 08/31/18 Diagnosis: L4-S1 spinal stenosis w/ bilat LE radiculopathy Procedure: L4-S1 bilateral laminectomy I was present for the entirety of the operative procedure. For further detail, please refer to operative report. Visit type - Case Type Case Type: Scheduled - New patient This patient is new to me today: Yes Date on this admission: 08/31/18
[2018-08-31] MEDS ORDERED: PROMETHAZINE HCL 25 MG/1 ML VIAL IVPUSH PRN (10:45)
[2018-08-31] MEDS ORDERED: ONDANSETRON 4 MG/2 ML VIAL IVPUSH PRN (10:45)
[2018-08-31] MEDS ORDERED: oxyCODONE HCL 5 MG TABLET PO PRN (10:45)
[2018-08-31] MEDS ORDERED: oxyCODONE HCL 5 MG TABLET ONE ×2 (12:32→13:12)
[2018-08-31] MEDS: oxyCODONE HCL 5 MG TABLET PO PRN ×2 (12:40→13:10)
--- NOTE | 2018-08-31 12:52 | OP ---
DATE OF OPERATION: 08/31/2018 PREOPERATIVE DIAGNOSIS: Spinal stenosis, L4-5, L5-S1. POSTOPERATIVE DIAGNOSIS: Spinal stenosis, L4-5, L5-S1. PROCEDURE PERFORMED: Laminectomy, L4-5, L5-S1. SURGEON: Evens Melchor MD LANDSCAPING SPECIALIST: MODESTA Gipson ESTIMATED BLOOD LOSS: 50 mL INTRAVENOUS FLUIDS: As per Anesthesia. ANESTHESIA: Spinal/ESB block. COMPLICATIONS: None. DISPOSITION: Patient brought to the PACU in stable condition. INDICATION FOR SURGERY: The patient is an 78-year-old female who has been suffering from pain from her back down her legs. X-rays and MRI were completed which noted she had spinal stenosis from L4 down to S1. She had gone through an exhaustive course of treatment for this, which included medications, physical therapy as well as injections. Unfortunately, her pain continued to persist despite all this. At this point, risks, benefits, and alternatives were discussed, and the patient consented to surgery. DESCRIPTION OF PROCEDURE: Patient was brought to the operating room by the anesthesia staff. After appropriate patient identification was performed, spinal anesthesia was given. An erector spinae block was also given. Patient was able to position herself prone onto the Tariq frame with all areas of bony prominences well padded at this time. Two needles were placed into her back to justine off the L4 to S1 segments. X-ray was taken to confirm this as correct. [place] were removed, and 10 mL of lidocaine with epinephrine were injected in her back at this time. Her back was prepped and draped in a sterile manner. At this point, timeout was completed. An incision was made from the top of L4 down to the bottom of S1. Dissection was carried down to the fascia. The fascia was then split open at this time. Appropriate retractors were then placed in. A spinal needle was placed onto the L4 lamina. X-ray was taken to confirm this as L4-5. The needle was removed, and the interspinous ligament at L4-5 and L5-S1 was removed. The spinous process of L5 was removed. The lamina of L5 was removed with a charo. The flavum was identified, was removed, and a complete decompression was performed such that by the end of the procedure the L5 and S1 nerve roots appeared to be well decompressed. All bleeding was well controlled at this time. Steroid was placed over the nerve root. FloSeal was placed over that. The fascia was closed with a No. 1 Vicryl suture. Subcutaneous tissues were closed with 2-0 Vicryl suture. Skin was closed with 3-0 Monocryl suture. Dermabond was applied. Steri-Strips were applied. A sterile dressing was applied. Patient was placed supine on the OR bed and brought to the PACU in stable condition. Keila PENN/[id number]
[2018-08-31] MEDS ORDERED: KETOROLAC TROMETHAMINE 30 MG/1 ML VIAL ONE (13:37)
[2018-08-31 16:23] VITALS: BP 180/70; PULSE 64; TEMP 97.9
== END 2018-08-31 14:30 | disposition home or self-care (01) ==
LOC: FASU 06:02
PROVIDERS: ATTEND Orthopaedic Surgery Orthopaedic Surgery of the Spine
PROC: 01NB0ZZ Release Lumbar Nerve, Open Approach (ICD-10-PCS; principal; 2018-08-31 09:17)
DX: M48.061 Spinal stenosis, lumbar region without neurogenic claudication (principal); M48.07 Spinal stenosis, lumbosacral region
CPT/HCPCS: 72100-TC-FY; 76000-TC-FY; 94760

== ENCOUNTER 2018-12-21 13:01 | Inpatient (IN) | payer OTHER, MEDICARE ==
[2018-12-21 13:10] VITALS: BMI 29.2
--- NOTE | 2018-12-21 13:12 | PDOC ---
Rapid Medical Evaluation Chief Complaint: Pain Medical Evaluation: Allergies Allergy/AdvReac Type Severity Reaction Status Date / Time Penicillins Allergy Itching Verified 08/25/18 10:34 Hx of hip replacment, spinal surgery; patient sent by Dr. Santamaria for B/L leg pain/cramps (from BLE knees down) x 1 month. Initially patient was on Mirapex, but then Dr. Collazo changed med to Neupro which she was on 2 weeks. Went to see Dr. Collazo 3 days ago, advised to stop Neupro, advised to take Tylenol #3. Given worsening pain, Dr. Santamaria advised to sent to ED. On PE, in NAD, BLE swelling (L slightly greater than right - this is chronic per patient) I have ordered: Nothing 12/21/18 13:07
--- NOTE | 2018-12-21 14:34 | PDOC ---
History of Present Illness - General Chief Complaint: Pain Stated Complaint: SENT BY PCP Time Seen by Provider: 12/21/18 13:07 - History of Present Illness Initial Comments: 12/21/18 15:04 The patient is an 78 year old female with a PMH of HTN, CHF, HLD, Sciatica, Restless Leg Syndrome and OA who presents to our ED c/o 2-3 week h/o worsening B /L LE edema and pain. Daughter and (a retired [facility] neurosurgeon) @ bedside assist in history. State patient had a lumbar spine laminectomy in September 2018 and since that time has been c/o pain. The pain has been occurring intermittently since the surgery with increasing frequency over the last few weeks and is squeezing, episodic sometimes lasting 5-10 minutes and more recently a few hours. Pain is most severe in the L calf and she been unable to sleep the last 2-3 days because of the pain. Also notes that her legs feel more hard. Follows with neurology for the pain and last week was told to discontinue Neurpo and start Tylenol #3. Patient's daughter called patient's PMD this morning (Dr. Kay Santamaria) who advised patient come to the ED for further evaluation. The patient denies any associated chest pain, shortness of breath, abdominal pain, nausea/vomiting, diarrhea/constipation, fevers/chills Allergy: Penicillin Surgical: Lumbar Laminectomy (September 2018); R Hip replacement (2016); L Hip replacement Social: denies toxic habits PMD: Dr. Kay Santamaria Cardiology: Dr. Rafael Perez Neurology: Dr. Collazo Pain: Dr. Cal Stephens Past History - Past Medical History Allergies/Adverse Reactions: Allergies Allergy/AdvReac Type Severity Reaction Status Date / Time Penicillins Allergy Itching Verified 12/21/18 13:10 Home Medications: Ambulatory Orders Atorvastatin Ca [Lipitor] 10 mg PO HS 12/06/16 Losartan Potassium 50 mg PO DAILY 12/06/16 Carvedilol [Coreg -] 25 mg PO BID tablet 12/13/16 Furosemide [Lasix] 20 mg PO DAILY 02/03/17 Multivitamins [Multivit ([facility] Formulary)] 1 tab PO DAILY tab 02/05/17 Acetaminophen [Tylenol -] 500 mg PO Q6H PRN 08/25/18 Aspirin [Ecotrin] 81 mg PO DAILY 08/25/18 Tramadol HCl 50 mg PO Q6H PRN #30 tablet MDD 4 08/31/18 Meloxicam [Mobic] 15 mg PO DAILY 12/21/18 Anemia: No Asthma: No Cancer: No (PRECANCEROUS FACILA LESIONS REMOVED) Cardiac Disorders: No CVA: No COPD: No CHF: No Dementia: No Diabetes: No GI Disorders: No Disorders: No HTN: Yes Hypercholesterolemia: Yes Liver Disease: No Seizures: No Thyroid Disease: No - Surgical History Abdominal Surgery: No Appendectomy: No Cardiac Surgery: No Cholecystectomy: No Lung Surgery: No Neurologic Surgery: No Orthopedic Surgery: Yes (LEFT HIP REPLACEMENT-2018, RIGHT HIP REPLACEMENT- 2008) - Suicide/Smoking/Psychosocial Hx Smoking History: Never smoked Have you smoked in the past 12 months: No Information on smoking cessation initiated: No Hx Alcohol Use: No Drug/Substance Use Hx: No Substance Use Type: None Hx Substance Use Treatment: No Review of Systems - Review of Systems Constitutional: No: Chills, Fever HEENTM: No: Blurred Vision, Recent change in vision Respiratory: No: Cough, Shortness of Breath Cardiac (ROS): No: Chest Pain, Lightheadedness, Palpitations, Syncope ABD/GI: No: Constipated, Diarrhea, Nausea, Vomiting *Physical Exam - Vital Signs Last Vital Signs Temp Pulse Resp BP Pulse Ox 98.4 F 65 17 167/85 100 12/21/18 13:07 12/21/18 13:07 12/21/18 13:07 12/21/18 13:07 12/21/18 13:07 - Physical Exam Comments: 12/21/18 18:47 VS reviewed in triage CV: S1,S2 no M/R/G Extremity: B/L LE 3+ edema with PVD changes, L calf tenderness Lungs: CLTA B/L, no wheeze/crackle Abdomen: soft, non-tender, (+) bowel sounds Neuro: A&0 x3, CN II-XII intact ED Treatment Course - LABORATORY CBC & Chemistry Diagram: 12/21/18 14:50 12/21/18 14:50 - RADIOLOGY Radiology Studies Ordered: Category Date Time Status CHEST X-RAY PORTABLE* [RAD] Stat Radiology 12/21/18 14:21 Ordered DUPLEX VASCUL US-2LEGS [US] Stat Ultrasound 12/21/18 14:21 Ordered KIDNEY / RENAL US [US] Stat Ultrasound 12/21/18 14:23 Ordered Medical Decision Making - Medical Decision Making 12/21/18 15:10 78 year old female with worsening LE pain and edema. VS unremarkable. L sided calf tenderness. - Will obtain U/S to r/o clot, Troponin to r/o ACS, BNP to evaluate for edema 2/ 2 to worsening CHF, CXR - Lasix (40 mg IV) 12/21/18 17:22 Mild BNP elevation @ 579 (220 in 12/2016) Troponin (-) Normal renal function 12/21/18 17:23 B/L Duplex negative for clot 12/21/18 18:26 Case d/w Dr. Jiménez, will admit for IV diuresis and cardiac evaluation including repeat Echo 12/21/18 18:30 Patient and patient's and daughter counseled on plan of care. Amenable to admission. Clinical Impression: Worsening CHF *DC/Admit/Observation/Transfer Diagnosis at time of Disposition: Swelling of both lower extremities - Discharge Dispostion Condition at time of disposition: Fair Decision to Admit order: Yes - Referrals - Patient Instructions - Post Discharge Activity
[2018-12-21 15:18] LABS: BASO % 0.5 % (0-2.0); EOS % 1.8 % (0-4.5); HEMATOCRIT 38.1 % (32.4-45.2); HEMOGLOBIN 12.4 GM/dL (10.7-15.3); LYMPH % 36.4 % (8-40); MCH 30.3 pg (25.7-33.7); MCHC 32.7 g/dl (32.0-36.0); MEAN CELL VOLUME 92.8 fl (80-96); MEAN PLT VOLUME 7.3 fl (7.5-11.1); MONO % 9.8 % (3.8-10.2); NEUT % 51.5 % (42.8-82.8); PLATELET COUNT 281 K/MM3 (134-434); RDW 13.6 % (11.6-15.6); WHITE BLOOD COUNT 6.5 K/mm3 (4.0-10.0)
[2018-12-21] MEDS ORDERED: FUROSEMIDE 40 MG/4 ML INJECTABLE VIAL IVPUSH ONE ×2 (15:39→16:23)
[2018-12-21 15:51] LABS: BILIRUBIN,TOTAL 0.4 mg/dL (0.2-1); CALCIUM 8.7 mg/dL (8.5-10.1); CREATININE 0.7 mg/dL (0.55-1.3); N-TERMINAL BNP 579.8 pg/ml (5-450); POTASSIUM 3.9 mmol/L (3.5-5.1); TOT PROT 6.8 g/dl (6.4-8.2)
--- NOTE | 2018-12-21 15:56 | PDOC ---
Documentation entered by Cristobal Marc SCRIBE, acting as scribe for Triston Amezcua MD. Triston Amezcua MD: This documentation has been prepared by the Monico villareal Nirvannie, SCRIBE, under my direction and personally reviewed by me in its entirety. I confirm that the documentation accurately reflects all work, treatment, procedures, and medical decision making performed by me. Attending Attestation - Resident Resident Name: Jayashree Stuart - ED Attending Attestation I have performed the following: I have examined & evaluated the patient, The case was reviewed & discussed with the resident, I agree w/resident's findings & plan, Exceptions are as noted - HPI HPI: 12/21/18 14:48 The patient is a 78 year old female, with a significant past medical history of hypertension, hyperlipidemia, sciatica, restless leg syndrome, and osteoarthritis, who presents to the emergency department with, 1 month of worsening BLE pain and swelling. Pt states that she was started on lasix by Dr. Perez but has been having progressively worsening swelling. She notes the L side is slightly worse than the R. Denies any recent travel/immobilization. She denies recent fevers, chills, headache or dizziness. She denies recent nausea, vomit, diarrhea or constipation. She denies recent dysuria, frequency, urgency or hematuria. She denies recent chest pain or shortness of breath. Allergies: Penicillins. Past Surgical History: Left Total Hip Replacement. Social History: Non smoker. Denies alcohol or drug use. Primary Care Physician: Dr. Kay Rucker Sql Tech: Dr. Rafael Perez Orthopedics: Dr. Will Ramos - Physicial Exam PE: 12/21/18 14:49 "GENERAL: Awake, alert, and fully oriented, in no acute distress. HEAD: No signs of trauma EYES: PERRLA, EOMI, sclera anicteric, conjunctiva clear ENT: Auricles normal inspection, hearing grossly normal, nares patent, oropharynx clear without exudates. Moist mucosa NECK: Nontender, no stepoffs, Normal ROM, supple, no lymphadenopathy, JVD, or masses LUNGS: Breath sounds equal, clear to auscultation bilaterally. No wheezes, and no crackles HEART: Regular rate and rhythm, normal S1 and S2, no murmurs, rubs or gallops ABDOMEN: Soft, nontender, normoactive bowel sounds. No guarding, no rebound. No masses EXTREMITIES: +2 PE BLE, L>R NEUROLOGICAL: Cranial nerves II through XII intact. 5/5 strength and sensation in all extremities, Normal speech, normal gait, normal cerebellar function SKIN: Warm, Dry, normal turgor, no rashes or lesions noted. - Medical Decision Making 12/21/18 15:55 78 F with worsening BLE edema and pain. Will evaluate for CHF. Also r/o DVT with dopplers, though unlikely as both legs are swollen. - Labs, BNP - BLE doppler - IV lasix
[2018-12-21 16:10] LABS: URINE APPEARANCE CLEAR; URINE BACTERIA 476.8 /hpf (NEGATIVE); URINE BILIRUBIN NEGATIVE (NEGATIVE); URINE CASTS 1 /lpf (0-8); URINE COLOR YELLOW; URINE GLUCOSE (UA) NEGATIVE (NEGATIVE); URINE KETONE NEGATIVE (NEGATIVE); URINE LEUK ESTERASE TRACE (NEGATIVE); URINE NITRITE POSITIVE (NEGATIVE); URINE PROTEIN NEGATIVE (NEGATIVE); URINE RBC 0 /hpf (0-4); URINE UROBILINOGEN 0.2 mg/dL (0.2-1.0); URINE WBC 7 /hpf (0-5)
[2018-12-21] MEDS ORDERED: FUROSEMIDE 40 MG/4 ML INJECTABLE VIAL ONE (17:56)
--- NOTE | 2018-12-21 18:21 | HP ---
CHIEF COMPLAINT: PCP:Dr. Kay Santamaria HISTORY OF PRESENT ILLNESS: 78 yo F PMH of HTN, diastolic CHF, HLD, Sciatica, Restless Leg Syndrome and OA, p/w 2-3 week h/o worsening B/L LE edema and pain. Daughter and (a retired [facility] neurosurgeon) @ bedside assist in history. State patient had a lumbar spine laminectomy in August 2018 and since that time has been c/o pain. Pain started while at PT, after 2-3 sessions she began having pain. The pain has been occurring intermittently since the surgery with increasing frequency over the last few weeks and is squeezing, episodic sometimes lasting 5 -10 minutes and more recently a few hours. Pain is most severe in the L calf and she been unable to sleep the last 2-3 days because of the pain. Also notes that her legs feel more hard. Follows with neurology for the pain and last week was told to discontinue Neurpo and start Tylenol #3. Patient's daughter called patient's PMD this morning (Dr. Kay Santamaria) who advised patient come to the ED for further evaluation. Of note pt came here 2 years ago for similar presentation and was tx for CHF exacerbation. pt deneis any changes in diet. denies any cp r sob associated w/ leg swelling. pt has been compliant w/ all her meds and takes lasix 20 qd. she f/w cardio and was seen 1 mo in office and no issues were present. denies ever having stress test. denies changes in meds. The patient denies any associated abdominal pain, nausea/vomiting, diarrhea/ constipation, fevers/chills, urinary sxs pt uses walker at baseline and lives at home w/ ER course was notable for: (1) BNP 579, lasix 40mg IVP x 1 (2) duplex neg dvt, +clemente cyst. CXR mild cardiomeg w/ b/l increased lung markings w/o congestion, no infiltrates. renal u/s nl (3) trop negx1, EKG NSR no ischemic changes qtc 467 Recent Travel: PAST MEDICAL HISTORY: PMD: Dr. Kay Santamaria Cardiology: Dr. Rafael Perez Neurology: Dr. Collazo Pain: Dr. 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 Family History: Allergies Penicillins Allergy (Verified 12/21/18 13:10) Itching HOME MEDICATIONS: Home Medications Medication Instructions Recorded Atorvastatin Ca [Lipitor] 10 mg PO HS 12/06/16 Losartan Potassium 25 mg PO DAILY 12/06/16 Pramipexole Di-HCl [Mirapex] 0.5 mg PO BID 12/06/16 Carvedilol [Coreg -] 25 mg PO BID tablet 12/13/16 Furosemide [Lasix] 40 mg PO DAILY 02/03/17 Multivitamins [Multivit ([facility] 1 tab PO DAILY tab 02/05/17 Formulary)] Acetaminophen [Tylenol -] 500 mg PO Q6H PRN 08/25/18 Aspirin [Ecotrin] 81 mg PO DAILY 08/25/18 Diazepam [Valium] 2 mg PO TID PRN #9 tablet MDD 3 08/31/18 Tramadol HCl 50 mg PO Q6H PRN #30 tablet MDD 4 08/31/18 REVIEW OF SYSTEMS as per HPI PHYSICAL EXAMINATION Vital Signs - 24 hr 12/21/18 13:07 Temperature 98.4 F Pulse Rate 65 Respiratory 17 Rate Blood Pressure 167/85 O2 Sat by Pulse 100 Oximetry (%) GENERAL: Awake, alert, and fully oriented, in no acute distress. Resting comfortably. HEAD: Normal with no signs of trauma. EYES: Pupils equal, round and reactive to light, extraocular movements intact, sclera anicteric, conjunctiva clear. EARS, NOSE, THROAT: Ears normal, nares patent, oropharynx clear without exudates. Moist mucous membranes. NECK: Normal range of motion, supple LUNGS: Breath sounds equal, clear to auscultation bilaterally. No wheezes, and no crackles. No accessory muscle use. HEART: Regular rate and rhythm, normal S1 and S2 without murmur, rub or gallop. ABDOMEN: Soft, nontender, not distended, normoactive bowel sounds, no guarding, no rebound, no masses. MUSCULOSKELETAL: +decr ROM in LE 2/2 pain LOWER EXTREMITIES: 2+ dp pulses, warm, well-perfused. +calves diffusely TTP. 1-2 + pitting edema NEUROLOGICAL: Cranial nerves II-XII intact. Normal speech. PSYCHIATRIC: Cooperative. Good eye contact. SKIN: Warm, dry, normal turgor Laboratory Results - last 24 hr 12/21/18 12/21/18 12/21/18 14:50 14:50 14:50 WBC 6.5 RBC 4.10 Hgb 12.4 Hct 38.1 MCV 92.8 MCH 30.3 MCHC 32.7 RDW 13.6 Plt Count 281 MPV 7.3 L Absolute Neuts (auto) 3.4 Neutrophils % 51.5 Lymphocytes % 36.4 Monocytes % 9.8 Eosinophils % 1.8 D Basophils % 0.5 Nucleated RBC % 0 PT with INR INR PTT (Actin FS) Sodium 143 Potassium 3.9 Chloride 108 H Carbon Dioxide 25 Anion Gap 10 BUN 14 Creatinine 0.7 Est GFR (CKD-EPI)AfAm 94.84 Est GFR (CKD-EPI)NonAf 81.83 Random Glucose 94 Calcium 8.7 Total Bilirubin 0.4 AST 29 ALT 29 Alkaline Phosphatase 76 Creatine Kinase 149 Troponin I < 0.02 B-Natriuretic Peptide 579.8 H Total Protein 6.8 Albumin 4.0 Urine Color Urine Appearance Urine pH Ur Specific [place] Urine Protein Urine Glucose (UA) Urine Ketones Urine Blood Urine Nitrite Urine Bilirubin Urine Urobilinogen Ur Leukocyte Esterase Urine WBC (Auto) Urine RBC (Auto) Urine Casts (Auto) U Epithel Cells (Auto) Urine Bacteria (Auto) 12/21/18 12/21/18 14:50 15:32 WBC RBC Hgb Hct MCV MCH MCHC RDW Plt Count MPV Absolute Neuts (auto) Neutrophils % Lymphocytes % Monocytes % Eosinophils % Basophils % Nucleated RBC % PT with INR Cancelled INR Cancelled PTT (Actin FS) Cancelled Sodium Potassium Chloride Carbon Dioxide Anion Gap BUN Creatinine Est GFR (CKD-EPI)AfAm Est GFR (CKD-EPI)NonAf Random Glucose Calcium Total Bilirubin AST ALT Alkaline Phosphatase Creatine Kinase Troponin I B-Natriuretic Peptide Total Protein Albumin Urine Color Yellow Urine Appearance Clear Urine pH 5.0 Ur Specific [place] 1.013 Urine Protein Negative Urine Glucose (UA) Negative Urine Ketones Negative Urine Blood Negative Urine Nitrite Positive H Urine Bilirubin Negative Urine Urobilinogen 0.2 Ur Leukocyte Esterase Trace Urine WBC (Auto) 7 Urine RBC (Auto) 0 Urine Casts (Auto) 1 U Epithel Cells (Auto) 1.0 Urine Bacteria (Auto) 476.8 EKG: NSR, normal intervals, qtc 467. no acute st-t wave changes CXR: mild cardiomegaly, mild increase b/l lung markings. no effusions renal sono: WNL duplex: +clemente's cyst- L pop fossa 2x1.1cm Echo 2017 diastolic dysfunction, mod TR, RV 30-40 ASSESSMENT/PLAN: 78 yo F PMH of HTN, diastolic CHF, HLD, Sciatica, Restless Leg Syndrome, hx L4- S1 spinal stenosis with b/l LE radiculopathy (08/31/18; Dr. Melchor) and OA, p/w 2 -3 week h/o worsening B/L LE edema and pain. diastolic CHF exacerbation - likely cause for leg edema w/ elevated BNP 579. lung exam clear, w/ hx pulm HTN more likely RV HF although c/b impaired LV relaxatoin. causes may include arrythmia vs ischemia vs pulm HTN caused by LV HF and maybe MIGUELITO? s/p lasix 40mg IVP x 1 in ED cardiac monitoring trop negx1, EKG NSR no ischemic changes qtc 467 rpt trop echo cardio consult, Ana TSH c/w Lasix IVP 40 bid pain ctl - tylenol and mobic PRN home med A1C limit free water to <2L per day low salt diet strict I/O, daily weight PT eval HTN (unctl 2/2 pain), HLD, Restless Leg Syndrome resume home meds: pramipexole, neupro , lipitor, losartan, coreg FEN PO hydration replete prn low salt diet ppx lovenox 40 sq qd dispo admit to tele Visit type - Emergency Visit Emergency Visit: Yes ED Registration Date: 12/21/18 Care time: The patient presented to the Emergency Department on the above date and was hospitalized for further evaluation of their emergent condition. - New Patient This patient is new to me today: Yes Date on this admission: 12/21/18 - Critical Care Critical Care patient: No
--- NOTE | 2018-12-21 18:25 | HP ---
CHIEF COMPLAINT: LE pain, edema x 1 month PCP: Dr. Santamaria HISTORY OF PRESENT ILLNESS: 78 y/o F with PMH HTN, diastolic CHF, hx L4-S1 spinal stenosis with b/l LE radiculopathy (08/31/18; Dr. Melchor), hx R b/l hip replacement, OA, sciatica, RLS , who presents to the ED who c/o LE pain and edema over the past month. As per pt, she had her spine sx in August. Afterward, she developed LE pain. Underwent PT, and after the 3-4 session where she was lifting heavy weights, her LE pain and edema worsened. States that she felt pain, tightness and at times, a burning sensation in her LE. Alleviated with ambulation. Has drastically affected her sleep and physical fnc as per family at bedside. Follows with Dr. Collazo and neuropro patch was switched to Tylenol#3. Followed with cardio, Dr. Perez a month ago. Without change in medications. Has been taking her lasix. Last ECHO was 2016 revealed diastolic dysfnc, mod TR. Denies KIMBALL, fever, chills, SOB, chest pain or pressure, or changes in urinary or bowel function. Ambulates using a walker at baseline. Lives with at home. 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 Smoking: denies Alcohol: denies Drugs: denies Family History: denies Allergies Penicillins Allergy (Verified 12/21/18 13:10) Itching HOME MEDICATIONS: Home Medications Medication Instructions Recorded Atorvastatin Ca [Lipitor] 10 mg PO HS 12/06/16 Losartan Potassium 25 mg PO DAILY 12/06/16 Pramipexole Di-HCl [Mirapex] 0.5 mg PO BID 12/06/16 Carvedilol [Coreg -] 25 mg PO BID tablet 12/13/16 Furosemide [Lasix] 40 mg PO DAILY 02/03/17 Multivitamins [Multivit ([facility] 1 tab PO DAILY tab 02/05/17 Formulary)] Acetaminophen [Tylenol -] 500 mg PO Q6H PRN 08/25/18 Aspirin [Ecotrin] 81 mg PO DAILY 08/25/18 Diazepam [Valium] 2 mg PO TID PRN #9 tablet MDD 3 08/31/18 Tramadol HCl 50 mg PO Q6H PRN #30 tablet MDD 4 08/31/18 REVIEW OF SYSTEMS CONSTITUTIONAL: Absent: fever, chills, diaphoresis, generalized weakness, malaise, loss of appetite, weight change HEENT: Absent: rhinorrhea, nasal congestion, throat pain, throat swelling, difficulty swallowing, mouth swelling, ear pain, eye pain, visual changes CARDIOVASCULAR: Absent: chest pain, syncope, palpitations, irregular heart rate, lightheadedness , peripheral edema RESPIRATORY: Absent: cough, shortness of breath, dyspnea with exertion, orthopnea, wheezing, stridor, hemoptysis GASTROINTESTINAL: Absent: abdominal pain, abdominal distension, nausea, vomiting, diarrhea, constipation, melena, hematochezia GENITOURINARY: Absent: dysuria, frequency, urgency, hesitancy, hematuria, flank pain, genital pain MUSCULOSKELETAL: +leg pain, edema Absent: myalgia, arthralgia, joint swelling, back pain, neck pain SKIN: Absent: rash, itching, pallor HEMATOLOGIC/IMMUNOLOGIC: Absent: easy bleeding, easy bruising, lymphadenopathy, frequent infections ENDOCRINE: Absent: unexplained weight gain, unexplained weight loss, heat intolerance, cold intolerance NEUROLOGIC: Absent: headache, focal weakness or paresthesias, dizziness, unsteady gait, seizure, mental status changes, bladder or bowel incontinence PSYCHIATRIC: Absent: anxiety, depression, suicidal or homicidal ideation, hallucinations. PHYSICAL EXAMINATION Vital Signs - 24 hr 12/21/18 13:07 Temperature 98.4 F Pulse Rate 65 Respiratory 17 Rate Blood Pressure 167/85 O2 Sat by Pulse 100 Oximetry (%) GENERAL: Awake, alert, and fully oriented, in no acute distress. Resting comfortably. HEAD: Normal with no signs of trauma. EYES: Pupils equal, round and reactive to light, extraocular movements intact, sclera anicteric, conjunctiva clear. EARS, NOSE, THROAT: Ears normal, nares patent, oropharynx clear without exudates. Moist mucous membranes. NECK: Normal range of motion, supple LUNGS: Breath sounds equal, clear to auscultation bilaterally. No wheezes, and no crackles. No accessory muscle use. HEART: Regular rate and rhythm, normal S1 and S2 without murmur, rub or gallop. ABDOMEN: Soft, nontender, not distended, normoactive bowel sounds, no guarding, no rebound, no masses. MUSCULOSKELETAL: +decr ROM in LE 2/2 pain LOWER EXTREMITIES: 2+ dp pulses, warm, well-perfused. +calves diffusely TTP. 1-2 + pitting edema NEUROLOGICAL: Cranial nerves II-XII intact. Normal speech. PSYCHIATRIC: Cooperative. Good eye contact. SKIN: Warm, dry, normal turgor Laboratory Results 12/21/18 12/21/18 12/21/18 14:50 14:50 14:50 WBC 6.5 RBC 4.10 Hgb 12.4 Hct 38.1 MCV 92.8 MCH 30.3 MCHC 32.7 RDW 13.6 Plt Count 281 MPV 7.3 L Absolute Neuts (auto) 3.4 Neutrophils % 51.5 Lymphocytes % 36.4 Monocytes % 9.8 Eosinophils % 1.8 D Basophils % 0.5 Nucleated RBC % 0 PT with INR INR PTT (Actin FS) Sodium 143 Potassium 3.9 Chloride 108 H Carbon Dioxide 25 Anion Gap 10 BUN 14 Creatinine 0.7 Est GFR (CKD-EPI)AfAm 94.84 Est GFR (CKD-EPI)NonAf 81.83 Random Glucose 94 Calcium 8.7 Total Bilirubin 0.4 AST 29 ALT 29 Alkaline Phosphatase 76 Creatine Kinase 149 Troponin I < 0.02 B-Natriuretic Peptide 579.8 H Total Protein 6.8 Albumin 4.0 Urine Color Urine Bacteria (Auto) EKG: NSR, normal intervals, qtc 470's. no acute st-t wave changes CXR: mild cardiomegaly, mild increase b/l lung markings. no effusions renal sono: WNL duplex: +clemente's cyst- L pop fossa 2x1.1cm ASSESSMENT/PLAN: 78 y/o F with PMH HTN, diastolic CHF, hx L4-S1 spinal stenosis with b/l LE radiculopathy (08/31/18; Dr. Melchor), hx R b/l hip replacement, OA, sciatica, RLS , who presents to the ED who c/o LE pain and edema over the past month. #LE edema possible 2/2 diastolic CHF exac -given lasix 40mg ivp x 1 in ED. f/u I/O to see how respond -c/w lasix 40mg IVP BID. -daily wt, I/O, na restrict 2g -repeat ECHO. last is from 2017 -trend trops. first (-). no ekg changes -f/u TSH, tele monitoring -cardio consult: Dr. Perez. pt's cardio #LE pain likely 2/2 edema -should improve after diuresis -may also be s/p spine sx -pain control with tylenol PRN. mobic PRN - home med #HTN-uncontrolled -likely 2/2 pain -c/w losartan, coreg #RLS -c/w pramipexole, neupro #HLD -c/w lipitor #F/E/N no IVF at this time; chf continue to follow lytes na controlled diet #PPX DVT: lovenox. renal fnc wnl #Dispo admit to tele Visit type - Emergency Visit Emergency Visit: Yes ED Registration Date: 12/21/18 Care time: The patient presented to the Emergency Department on the above date and was hospitalized for further evaluation of their emergent condition. - New Patient This patient is new to me today: Yes Date on this admission: 12/21/18 - Critical Care Critical Care patient: No
[2018-12-21] MEDS ORDERED: PATIENT'S OWN MEDICATION (NON-FORMULARY) (Meloxicam [Mobic] 15 MG) PO PRN (18:34)
[2018-12-21] MEDS ORDERED: diazePAM 2 MG TABLET PO PRN (18:34)
--- NOTE | 2018-12-21 18:58 | PN ---
Teaching Attending Note Name of Resident: Ortiz Curran ATTENDING PHYSICIAN STATEMENT I saw and evaluated the patient. I reviewed the resident's note and discussed the case with the resident. I agree with the resident's findings and plan as documented. SUBJECTIVE: CC: LE edema HPI: Veronica 78 y/o lady with h/o HTN,Restless leg syndrome, diastolic CHF, HLD, Sciatica, OA , and recent back SX who presented with worsening LE edema and pain. she has been having leg pain b/l since august, but edema has progressively worsened. last month it progressively became worse. ther e is no change in meds , diet, or water intake. she denies SOB or MORAN. No CP. last echo was in 2017. No recent stress test. she saw Dr. Islas about 6 weeks abo , and no changes were made to her meds. OBJECTIVE: VS reviewed. NAD, MMM, round equal pupils, reactive to light. No facial droop. CV: RRR, no MRG. + hepatojugular reflux. Lungs: CTAB Abd: soft, NT, ND , NL BS. + hepatojugular reflux. LE: 2+ pitting edema with slight erythema and increased warmth. tenderness to palpation . DP 2+ b/l. no signs of fungal infection in feet neuro: EOMI, round equal pupils, reactive to light, uvula and tongue at mid line. strength 5/5 in upper and lower extremities proximally and distally. sensatio to light touch NL. reflexes: 2+ biceps and knee jerk b/l ASSESSMENT AND PLAN: Veronica 78 y/o lady with h/o HTN,Restless leg syndrome, diastolic CHF, HLD, Sciatica, OA , and recent back SX who presented with worsening LE edema and pain. 1- LE edema. suspect due to R sided heart failure exacerbation. most likely diastolic given her last echo. can't r/o worsening TR, or MIGUELITO, or uncontrolled BP as etiology. do not suspect ACS. EKG with no ischemic changes. cxray reviewed - start lasix 40 BID IV - echo - tele - card input - I&O and weight - low salt diet 2- Uncontrolled HTN: cont losartan and coreg. give extra losartan now. if needed can increase meds as tolerated 3- LE pain. has restless leg syndrome but also edema is worsening pain. - cont IV diuresis - check A1c - cont neupro patch - tylenol 3- DVT PX : lovenox
[2018-12-21] MEDS ORDERED: LOSARTAN POTASSIUM 25 MG TABLET PO ONE (19:07)
[2018-12-21] MEDS: ENOXAPARIN NA (PORCINE) 40 MG/0.4 ML DISP.SYRIN SQ SCH (21:16)
[2018-12-21] MEDS: CARVEDILOL 25 MG TABLET (FP) PO SCH (21:17)
[2018-12-21] MEDS: ATORVASTATIN CA 10 MG TABLET (FP) PO SCH (21:17)
[2018-12-21] MEDS: ACETAMINOPHEN 325 MG TABLET (FP) PO PRN (21:22)
[2018-12-22] MEDS: ACETAMINOPHEN 325 MG TABLET (FP) PO PRN ×5 (02:10→21:35)
[2018-12-22] MEDS: FUROSEMIDE 40 MG/4 ML INJECTABLE VIAL IVPUSH SCH ×2 (06:11→13:11)
[2018-12-22] MEDS: CARVEDILOL 25 MG TABLET (FP) PO SCH ×3 (06:12→21:21)
[2018-12-22 06:57] LABS: HEMATOCRIT 35.1 % (32.4-45.2); HEMOGLOBIN 11.7 GM/dL (10.7-15.3); MCH 30.4 pg (25.7-33.7); MCHC 33.4 g/dl (32.0-36.0); MEAN PLT VOLUME 7.1 fl (7.5-11.1); PLATELET COUNT 283 K/MM3 (134-434); RBC 3.85 M/mm3 (3.60-5.2); RDW 13.2 % (11.6-15.6); WHITE BLOOD COUNT 6.3 K/mm3 (4.0-10.0)
[2018-12-22 07:06] LABS: ALBUMIN 3.5 g/dl (3.4-5.0); BILIRUBIN,TOTAL 0.6 mg/dL (0.2-1); CALCIUM 8.6 mg/dL (8.5-10.1); CREATININE 0.5 mg/dL (0.55-1.3); MAGNESIUM 2.1 mg/dL (1.8-2.4); PHOSPHOROUS 3.6 mg/dL (2.5-4.9); POTASSIUM 3.3 mmol/L (3.5-5.1)
[2018-12-22] MEDS ORDERED: POTASSIUM CHLORIDE TABS 20 MEQ TABLET.ER (FP) PO ONE (07:08)
[2018-12-22] MEDS: ASPIRIN COATED 81 MG TABLET.EC PO SCH (08:59)
[2018-12-22] MEDS: ENOXAPARIN NA (PORCINE) 40 MG/0.4 ML DISP.SYRIN SQ SCH (08:59)
[2018-12-22] MEDS: MULTIVITAMINS (DAILY MVI) TABLET (FP) PO SCH (08:59)
[2018-12-22] MEDS ORDERED: LOSARTAN POTASSIUM 50 MG TABLET (FP) PO SCH (10:00)
[2018-12-22] MEDS ORDERED: ROTIGOTINE TP SCH (10:00)
--- NOTE | 2018-12-22 10:09 | ECHO ---
Name: BLAINE KAPLAN Exam:Adult Echocardiogram Study Date: 12/22/2018 08:18 AM Age: 78 yrs Reason For Study: CHF Height: 62 in Weight: 160 lb BSA: 1.7 m2 MMode/2D Measurements & Calculations IVSd: 1.0 cm Ao root diam: 2.5 cm LVIDd: 4.0 cm LA dimension: 3.0 cm LVIDs: 3.0 cm LVPWd: 0.95 cm EDV(Teich): 70.4 ml LVOT diam: 2.0 cm ESV(Teich): 33.8 ml LAV (MOD-bp): 63.3 ml Doppler Measurements & Calculations MV E max atif: 85.9 cm/sec Ao V2 max: 191.4 cm/sec MV A max atif: 80.4 cm/sec Ao max P.7 mmHg MV E/A: 1.1 MV dec time: 0.19 sec CINDY(V,D): 2.4 cm2 LV V1 max P.3 mmHg MR max atif: 516.2 cm/sec LV V1 max: 152.6 cm/sec MR max P.6 mmHg TR max atif: 285.7 cm/sec PA V2 max: 108.6 cm/sec TR max P.7 mmHg PA max P.7 mmHg Med Peak E' Atif: 6.5 cm/sec PI Vmax: 134.4 cm/sec Med E/e': 13.2 Lat Peak E' Atif: 9.4 cm/sec Lat E/e': 9.2 Left Ventricle Left ventricular systolic function is normal. Ejection Fraction = 50-55%. Right Ventricle The right ventricle is normal in size and function. Atria The left atrium is mildly dilated. Mitral Valve There is mild mitral annular calcification. There is no mitral valve stenosis. There is mild mitral regurgitation. Tricuspid Valve The tricuspid valve is normal in structure and function. There is mild tricuspid regurgitation. Right ventricular systolic pressure is elevated at 30-40mmHg. Aortic Valve There is mild aortic sclerosis.;. No hemodynamically significant valvular aortic stenosis. Pulmonic Valve The pulmonic valve is not well seen, but is grossly normal. There is no pulmonic valvular stenosis. Great Vessels The aortic root is normal size. Pericardium/Pleura There is no pericardial effusion. Interpretation Summary Left ventricular systolic function is normal. Ejection Fraction = 50-55%. The right ventricle is normal in size and function. There is mild mitral annular calcification. There is mild mitral regurgitation. There is mild tricuspid regurgitation. Right ventricular systolic pressure is elevated at 30-40mmHg. There is mild aortic sclerosis.; There is no pericardial effusion. MD Wallis *Loreta 12/22/2018 10:09 AM
[2018-12-22] MEDS ORDERED: LOSARTAN POTASSIUM 25 MG TABLET PO ONE (12:19)
--- NOTE | 2018-12-22 13:03 | PN ---
Physical Exam: SUBJECTIVE: Patient seen and examined at bedside. overnight tachy 120s that self resolved on tele, regular rate but p waves difficult to observe, may be SVT ? denies sxs. denies cp, sob, n/v/d, fever OBJECTIVE: Vital Signs Period Temp Pulse Resp BP Sys/Naqvi Pulse Ox Last 24 Hr 97.3 F-98.5 F 65-77 17-21 142-192/61-85 95-100 GENERAL: Awake, alert, and fully oriented, in no acute distress. Resting comfortably. HEAD: Normal with no signs of trauma. EYES: Pupils equal, round and reactive to light, extraocular movements intact, sclera anicteric, conjunctiva clear. EARS, NOSE, THROAT: Ears normal, nares patent, oropharynx clear without exudates. MMM NECK: Normal range of motion, supple LUNGS: Breath sounds equal, clear to auscultation bilaterally. No wheezes, and no crackles. No accessory muscle use. HEART: RRR, normal S1 and S2 without murmur, rub or gallop. ABDOMEN: Soft, nontender, not distended, normoactive bowel sounds, no guarding, no rebound, no masses. MUSCULOSKELETAL: +decr ROM in LE 2/2 pain LOWER EXTREMITIES: 2+ dp pulses, warm, well-perfused. +calves diffusely TTP, improving/less tender. 1-2+ pitting edema, improving NEUROLOGICAL: Cranial nerves II-XII intact. Normal speech. PSYCHIATRIC: Cooperative. Good eye contact. SKIN: Warm, dry, normal turgor Laboratory Results - last 24 hr 12/21/18 12/21/18 12/21/18 14:50 14:50 14:50 WBC 6.5 RBC 4.10 Hgb 12.4 Hct 38.1 MCV 92.8 MCH 30.3 MCHC 32.7 RDW 13.6 Plt Count 281 MPV 7.3 L Absolute Neuts (auto) 3.4 Neutrophils % 51.5 Lymphocytes % 36.4 Monocytes % 9.8 Eosinophils % 1.8 D Basophils % 0.5 Nucleated RBC % 0 PT with INR INR PTT (Actin FS) Sodium 143 Potassium 3.9 Chloride 108 H Carbon Dioxide 25 Anion Gap 10 BUN 14 Creatinine 0.7 Est GFR (CKD-EPI)AfAm 94.84 Est GFR (CKD-EPI)NonAf 81.83 Random Glucose 94 Hemoglobin A1c % Calcium 8.7 Phosphorus Magnesium Total Bilirubin 0.4 AST 29 ALT 29 Alkaline Phosphatase 76 Creatine Kinase 149 Creatine Kinase Index CK-MB (CK-2) Troponin I < 0.02 B-Natriuretic Peptide 579.8 H Total Protein 6.8 Albumin 4.0 TSH Urine Color Urine Appearance Urine pH Ur Specific [place] Urine Protein Urine Glucose (UA) Urine Ketones Urine Blood Urine Nitrite Urine Bilirubin Urine Urobilinogen Ur Leukocyte Esterase Urine WBC (Auto) Urine RBC (Auto) Urine Casts (Auto) U Epithel Cells (Auto) Urine Bacteria (Auto) 12/21/18 12/21/18 12/21/18 14:50 15:32 19:00 WBC RBC Hgb Hct MCV MCH MCHC RDW Plt Count MPV Absolute Neuts (auto) Neutrophils % Lymphocytes % Monocytes % Eosinophils % Basophils % Nucleated RBC % PT with INR Cancelled INR Cancelled PTT (Actin FS) Cancelled Sodium Potassium Chloride Carbon Dioxide Anion Gap BUN Creatinine Est GFR (CKD-EPI)AfAm Est GFR (CKD-EPI)NonAf Random Glucose Hemoglobin A1c % Calcium Phosphorus Magnesium Total Bilirubin AST ALT Alkaline Phosphatase Creatine Kinase 152 Creatine Kinase Index 1.8 CK-MB (CK-2) 2.8 Troponin I < 0.02 B-Natriuretic Peptide Total Protein Albumin TSH Urine Color Yellow Urine Appearance Clear Urine pH 5.0 Ur Specific [place] 1.013 Urine Protein Negative Urine Glucose (UA) Negative Urine Ketones Negative Urine Blood Negative Urine Nitrite Positive H Urine Bilirubin Negative Urine Urobilinogen 0.2 Ur Leukocyte Esterase Trace Urine WBC (Auto) 7 Urine RBC (Auto) 0 Urine Casts (Auto) 1 U Epithel Cells (Auto) 1.0 Urine Bacteria (Auto) 476.8 12/22/18 12/22/18 12/22/18 05:30 05:30 05:30 WBC 6.3 RBC 3.85 Hgb 11.7 Hct 35.1 MCV 91.0 MCH 30.4 MCHC 33.4 RDW 13.2 Plt Count 283 MPV 7.1 L Absolute Neuts (auto) Neutrophils % Lymphocytes % Monocytes % Eosinophils % Basophils % Nucleated RBC % PT with INR INR PTT (Actin FS) Sodium 141 Potassium 3.3 L Chloride 107 Carbon Dioxide 25 Anion Gap 9 BUN 16 Creatinine 0.5 L Est GFR (CKD-EPI)AfAm 105.94 Est GFR (CKD-EPI)NonAf 91.41 Random Glucose 79 Hemoglobin A1c % 6.1 Calcium 8.6 Phosphorus 3.6 Magnesium 2.1 Total Bilirubin 0.6 AST 31 ALT 32 Alkaline Phosphatase 69 Creatine Kinase Creatine Kinase Index CK-MB (CK-2) Troponin I B-Natriuretic Peptide Total Protein 6.0 L Albumin 3.5 TSH 0.48 Urine Color Urine Appearance Urine pH Ur Specific [place] Urine Protein Urine Glucose (UA) Urine Ketones Urine Blood Urine Nitrite Urine Bilirubin Urine Urobilinogen Ur Leukocyte Esterase Urine WBC (Auto) Urine RBC (Auto) Urine Casts (Auto) U Epithel Cells (Auto) Urine Bacteria (Auto) Active Medications Generic Name Dose Route Start Last Admin Trade Name Freq PRN Reason Stop Dose Admin Acetaminophen 650 mg 12/21/18 18:24 12/22/18 11:25 Tylenol - PO 650 mg Q4H PRN Administration PAIN LEVEL 6-10 Aspirin 81 mg 12/22/18 10:00 12/22/18 08:59 Ecotrin - PO 81 mg DAILY MOISÉS Administration Atorvastatin Calcium 10 mg 12/21/18 22:00 12/21/18 21:17 Lipitor - PO 10 mg HS [facility] Administration Carvedilol 25 mg 12/21/18 22:00 12/22/18 09:00 Coreg - PO Not Given BID [facility] Diazepam 2 mg 12/21/18 18:34 Valium - PO TID PRN MUSCLE SPASMS Enoxaparin Sodium 40 mg 12/21/18 19:30 12/22/18 08:59 Lovenox - SQ 40 mg DAILY MOISÉS Administration Furosemide 40 mg 12/22/18 06:00 12/22/18 06:11 Lasix Injection - IVPUSH 40 mg BID@0600,1400 MOISÉS Administration Losartan Potassium 25 mg 12/22/18 12:19 Cozaar - PO 12/22/18 12:20 ONCE ONE Losartan Potassium 75 mg 12/23/18 10:00 Cozaar - PO DAILY [facility] Multivitamins/Minerals/Vitamin C 1 tab 12/22/18 10:00 12/22/18 08:59 Tab-A-Vit - PO 1 tab DAILY MOISÉS Administration Non-Formulary Medication 15 mg 12/21/18 18:34 Meloxicam [Mobic] PO DAILY PRN PAIN Non-Formulary Medication 1 patch 12/22/18 10:00 Rotigotine [Neupro] TP DAILY [facility] EKG: NSR, normal intervals, qtc 467. no acute st-t wave changes CXR: mild cardiomegaly, mild increase b/l lung markings. no effusions renal sono: WNL duplex: +clemente's cyst- L pop fossa 2x1.1cm Echo 2017 diastolic dysfunction, mod TR, RV 30-40 ECHO Interpretation Summary Left ventricular systolic function is normal. Ejection Fraction = 50-55%. The right ventricle is normal in size and function. There is mild mitral annular calcification. There is mild mitral regurgitation. There is mild tricuspid regurgitation. Right ventricular systolic pressure is elevated at 30-40mmHg. There is mild aortic sclerosis.; There is no pericardial effusion. MD Wallis *Loreta 12/22/2018 10:09 AM ASSESSMENT/PLAN: 78 yo F PMH of HTN, diastolic CHF, HLD, Sciatica, Restless Leg Syndrome, hx L4- S1 spinal stenosis with b/l LE radiculopathy (08/31/18; Dr. Melchor) and OA, p/w 2 -3 week h/o worsening B/L LE edema and pain. diastolic CHF exacerbation - likely cause for leg edema w/ elevated BNP 579. lung exam clear, w/ hx pulm HTN more likely R sided HF although c/b impaired LV relaxatoin. causes may include arrythmia vs pulm HTN caused by LV HF and maybe MIGUELITO? do not suspect ACS - leg edema and pain improving w/ lasix s/p lasix 40mg IVP x 1 in ED cardiac monitoring: overnight tachy 120s that self resolved, regular rate but p waves difficult to observe, may be SVT? will reach out and f/u w/ cardio trop negx2, EKG NSR no ischemic changes qtc 467 echo reviewed above cardio consult, Ana c/w Lasix IVP 40 bid pain ctl - tylenol and mobic PRN home med limit free water to <2L per day low salt diet strict I/O, daily weight PT eval A1C 6.1 TSH nl HTN - unctl losartan increase 50 to 75mg qd home dose coreg HLD, Restless Leg Syndrome resume home meds: pramipexole, neupro , lipitor, FEN PO hydration replete prn low salt diet ppx lovenox 40 sq qd dispo tele Visit type - Emergency Visit Emergency Visit: Yes ED Registration Date: 12/21/18 Care time: The patient presented to the Emergency Department on the above date and was hospitalized for further evaluation of their emergent condition. - New Patient This patient is new to me today: Yes Date on this admission: 12/22/18 - Critical Care Critical Care patient: No
--- NOTE | 2018-12-22 13:10 | CON.CARD ---
Consult Consult Specialty:: Cardiology Referred by:: Hospitalist Medicine Reason for Consultation:: Bilateral LE edema - History of Present Illness Chief Complaint: Bilateral LE edema History of Present Illness: Pleasant 78 y/o lady with h/o HTN, hyperlipidemia, spinal stenosis post epidural steroid injection, Lyrica, restless leg syndrome, diastolic CHF, Sciatica, right hip OA s/p THR, and recent back SX last visit 10/17/2018 who presented with worsening bilateral LE edema and pain progressively worsening over last month. She denies SOB, MORAN, CP, palpitations, orthopnea, PND, ruled out for DVT, swelling improved with diuresis. Burst of PSVT 120s on telemetry, ? PAT. l - History Source History Provided By: Patient Limitations to Obtaining History: No Limitations - Past Medical History Cardio/Vascular: Yes: HTN, Hyperlipdemia Pulmonary: Yes: Other. No: Asthma, Bronchitis, Cancer, COPD, O2 Dependent, Pneumonia, Previously Intubated, Pulmonary Embolus, Pulmonary Fibrosis, Sleep Apnea Musculoskeletal: Yes: Osteoarthritis Rheumatology: Yes: Other (Osteoarthritis) - Past Surgical History Past Surgical History: Yes: Joint Replacement (left HIP ) - Alcohol/Substance Use Hx Alcohol Use: No History of Substance Use: reports: None - Smoking History Smoking history: Never smoked Have you smoked in the past 12 months: No - Social History ADL: Independent Home Medications - Allergies Allergies/Adverse Reactions: Allergies Allergy/AdvReac Type Severity Reaction Status Date / Time Penicillins Allergy Itching Verified 12/21/18 13:10 - Home Medications Home Medications: Ambulatory Orders Atorvastatin Ca [Lipitor] 10 mg PO HS 12/06/16 Losartan Potassium 50 mg PO DAILY 12/06/16 Carvedilol [Coreg -] 25 mg PO BID tablet 12/13/16 Furosemide [Lasix] 20 mg PO DAILY 02/03/17 Multivitamins [Multivit ([facility] Formulary)] 1 tab PO DAILY tab 02/05/17 Acetaminophen [Tylenol -] 500 mg PO Q6H PRN 08/25/18 Aspirin [Ecotrin] 81 mg PO DAILY 08/25/18 Tramadol HCl 50 mg PO Q6H PRN #30 tablet MDD 4 08/31/18 Meloxicam [Mobic] 15 mg PO DAILY 12/21/18 Acetaminophen W/ Codeine #3 [Tylenol # 3 -] 1 tab PO TID PRN 12/22/18 Pramipexole Dihydrochloride [Mirapex -] 0.5 mg PO DAILY 12/22/18 Rotigotine [Neupro] 2 mg TP DAILY 12/22/18 Review of Systems - Review of Systems Cardiovascular: reports: Edema Vital Signs: Vital Signs Temperature 98.8 F 12/22/18 13:09 Pulse Rate 78 12/22/18 13:09 Respiratory Rate 18 12/22/18 13:09 Blood Pressure 147/51 L 12/22/18 13:09 O2 Sat by Pulse Oximetry (%) 98 12/22/18 09:00 Constitutional: Yes: No Distress, Calm Neck: Yes: Supple Respiratory: Yes: Regular, CTA Bilaterally Gastrointestinal: Yes: Normal Bowel Sounds, Soft Cardiovascular: Yes: Regular Rate and Rhythm JVD: No Carotid Bruit: No Heart Sounds: Yes: S1, S2 Murmur: Yes: Systolic Murmur, Grade 1 Edema: Yes Edema: LLE: 1+, RLE: 1+ - Other Data Labs, Other Data: CBC, BMP 12/22/18 05:30 12/22/18 05:30 INR, PTT INR Cancelled 12/21/18 14:50 Troponin, BNP 12/21/18 12/21/18 12/21/18 14:50 14:50 19:00 Troponin I < 0.02 < 0.02 B-Natriuretic Peptide 579.8 H Troponin, BNP 12/21/18 12/21/18 12/21/18 14:50 14:50 19:00 Troponin I < 0.02 < 0.02 B-Natriuretic Peptide 579.8 H NSR @ 76 Ejection Fraction %: LVEF > or = 40 % Imaging - Results Chest X-ray: Report Reviewed (NAD) Ultrasound: Report Reviewed (No DVT or hydronephrosis bilaterally) Problem List - Problems (1) Venous insufficiency of both lower extremities Code(s): I87.2 - VENOUS INSUFFICIENCY (CHRONIC) (PERIPHERAL) (2) Diastolic dysfunction without heart failure Code(s): I51.9 - HEART DISEASE, UNSPECIFIED (3) Hyperlipidemia Code(s): E78.5 - HYPERLIPIDEMIA, UNSPECIFIED Qualifiers: Hyperlipidemia type: pure hypercholesterolemia Qualified Code(s): E78.00 - Pure hypercholesterolemia, unspecified (4) Hypertension Code(s): I10 - ESSENTIAL (PRIMARY) HYPERTENSION Qualifiers: Hypertension type: essential hypertension Qualified Code(s): I10 - Essential (primary) hypertension (5) Lower extremity edema Code(s): R60.0 - LOCALIZED EDEMA Assessment/Plan 12/22/2018 Echo: Normal LV and RV size and fxn, mild MR, TR RVSP 30-40 mmHg 1. Bilateral LE edema referable to venous insufficiency, ruled out DVT 2. Hypertensive cardiovascular disease with h/o labile hypertension ( symptomatic hypotension after starting diuretics) 3. Hyperlipidemia 4. Diastolic dysfcunction with mild-mod MR 5. Spinal stenosis s/p INGRID and L4 laminectomy 6. s/p right total hip arthroplasty and bilateral cataract surgery 7. PSVT P:1. 81 qd, Lipitor 10 qd, carvedilol 25 bid, losartan 50 qd, d/c Mobic 2. Decrease diuresis with monitor diuretic response, renal fxn and electrolytes , replete K compression therapy 3. Continnue Lipitor 10 qhs, agree with increase losartan 100 qd, cavedilol 25 bid, ASA 81 qd and resume Lasix 20 qd 4. Thank you for consultative opportunity
--- NOTE | 2018-12-22 14:47 | EKG ---
Test Reason : Blood Pressure : / mmHG Vent. Rate : 067 BPM Atrial Rate : 067 BPM P-R Int : 174 ms QRS Dur : 066 ms QT Int : 442 ms P-R-T Axes : 054 022 018 degrees QTc Int : 467 ms POOR DATA QUALITY, INTERPRETATION MAY BE ADVERSELY AFFECTED NORMAL SINUS RHYTHM NORMAL ECG WHEN COMPARED WITH ECG OF 18-AUG-2018 12:10, NO SIGNIFICANT CHANGE WAS FOUND Confirmed by BOO STERLING MD ([id number]) on 12/22/2018 2:46:52 PM Referred By: Confirmed By:BOO STERLING MD
[2018-12-22] MEDS ORDERED: LOPERAMIDE HCL 2 MG CAPSULE PO ONE ×2 (15:13→15:30)
--- NOTE | 2018-12-22 16:31 | PN ---
Teaching Attending Note Name of Resident: Kamari Nevarez ATTENDING PHYSICIAN STATEMENT I saw and evaluated the patient. I reviewed the resident's note and discussed the case with the resident. I agree with the resident's findings and plan as documented. SUBJECTIVE: No fever or chills . No OSB . LE pain and edema better today OBJECTIVE: NAD, MMM, round equal pupils, reactive to light. No facial droop. CV: RRR, no MRG. Lungs: CTAB LE: imporved edema , 1+ today , decreased redness. . tenderness to palpation . DP 2+ b/l. ASSESSMENT AND PLAN: Pleasant 78 y/o lady with h/o HTN,Restless leg syndrome, diastolic CHF, HLD, Sciatica, OA , and recent back SX who presented with worsening LE edema and pain. 1- LE edema. 2- diastolic heart failure 3- Uncontrolled HTN 4- Restless leg syndrome 5- a run of SVT on tele plan : - cont tele till am - cont lasix , changed to po per card - echo reviewed - increase losartan - cont coreg - cont neupro patch - tylenol 3- DVT PX : lovenox PT eval. possible dc tomorrow
[2018-12-22] MEDS: ATORVASTATIN CA 10 MG TABLET (FP) PO SCH (21:21)
[2018-12-23] MEDS: ACETAMINOPHEN 325 MG TABLET (FP) PO PRN ×2 (03:36→11:57)
--- NOTE | 2018-12-23 06:43 | PN ---
Progress Note (short form) - Note Progress Note: Chief Complaint: Events noted, notes reviewed, denies any chest pain or dyspnea , peripheral edema resolving History of Present Illness: Seen and examined on telemetry. Events noted, notes reviewed, denies any chest pain or dyspnea, peripheral edema resolving 12/22/2018 Echo: Normal LV and RV size and function, mild MR and TR with RVSP 30 -40 mmHg - Current Medication List Current Medications Acetaminophen (Tylenol -) 650 mg PO Q4H PRN PRN Reason: PAIN LEVEL 6-10 Last Admin: 12/23/18 03:36 Dose: 650 mg Aspirin (Ecotrin -) 81 mg PO DAILY [facility] Last Admin: 12/22/18 08:59 Dose: 81 mg Atorvastatin Calcium (Lipitor -) 10 mg PO HS [facility] Last Admin: 12/22/18 21:21 Dose: 10 mg Carvedilol (Coreg -) 25 mg PO BID [facility] Last Admin: 12/22/18 21:21 Dose: 25 mg Diazepam (Valium -) 2 mg PO TID PRN PRN Reason: MUSCLE SPASMS Enoxaparin Sodium (Lovenox -) 40 mg SQ DAILY [facility] Last Admin: 12/22/18 08:59 Dose: 40 mg Furosemide (Lasix -) 20 mg PO DAILY [facility] Losartan Potassium (Cozaar -) 75 mg PO DAILY [facility] Multivitamins/Minerals/Vitamin C (Tab-A-Vit -) 1 tab PO DAILY [facility] Last Admin: 12/22/18 08:59 Dose: 1 tab Non-Formulary Medication (Rotigotine [Neupro]) 1 patch TP DAILY [facility] Review of Systems Cardiovascular: As noted above Respiratory: denies: Cough or Sputum Production Gastrointestinal: denies: Nausea, Vomiting, Diarrhea, Constipation or Abdominal Discomfort Musculoskeletal: No Symptoms Reported Endocrine: No Symptoms Reported - Objective Vital Signs: Last Vital Signs Temp Pulse Resp BP Pulse Ox 97.9 F 74 20 151/58 L 95 12/23/18 06:00 12/23/18 06:00 12/23/18 06:00 12/23/18 06:00 12/22/18 21:00 Intake & Output 12/20/18 12/21/18 12/22/18 12/23/18 23:59 23:59 23:59 23:59 Intake Total 250 660 240 Output Total 300 Balance 250 360 240 Weight 160 lb 158 lb 6.4 oz 155 lb 9.6 oz Neck: Supple Negative JVD No Bruit Cardiovascular: S1 S2 Regular Rate and Rhythm Respiratory: clear to A&P Bilaterally Gastrointestinal: Soft Benign Normal Bowel Sounds Ext: Edema Labs: CBC, BMP 12/22/18 05:30 12/23/18 05:30 Hepatic Panel Total Bilirubin 0.6 mg/dL (0.2-1) 12/22/18 05:30 AST 31 U/L (15-37) 12/22/18 05:30 ALT 32 U/L (13-61) 12/22/18 05:30 Alkaline Phosphatase 69 U/L (45-117) 12/22/18 05:30 Albumin 3.5 g/dl (3.4-5.0) 12/22/18 05:30 INR, PTT INR Cancelled 12/21/18 14:50 Assessment/Plan ASSESSMENT: 1. Bilateral lower extremity edema referable to chronic venous insufficiency 2. Diastolic LV dysfunction with class 0-I NYHA classification LV failure, compensated/euvolemic 3. Hypertensive cardiovascular disease with labile hypertension 4. Hyperlipidemia 5. History of PSVT 6. Mild-moderate MR 7. Hypokalemia 8. Spinal stenosis post intervention 9. Post right total hip arthroplasty PLAN: 1. Continue ASA 2. Continue Lipitor 3. Continue Carvedilol 4. Continue Losartan and titrate dosage as needed and tolerated 5. Continue Lasix at 20 mg daily and add Aldactone at 25 mg daily 6. Can be D/C from the cardiovascular point of view and F/U in the office with Dr. Teresa Perez in 1-2 week Azar Álvarez M.D.
[2018-12-23 07:14] LABS: CALCIUM 8.8 mg/dL (8.5-10.1); CREATININE 0.5 mg/dL (0.55-1.3); POTASSIUM 3.4 mmol/L (3.5-5.1)
[2018-12-23] MEDS: LOSARTAN POTASSIUM 25 MG TABLET PO SCH ×2 (08:10→09:20)
[2018-12-23] MEDS: CARVEDILOL 25 MG TABLET (FP) PO SCH ×2 (08:11→09:20)
[2018-12-23] MEDS: MULTIVITAMINS (DAILY MVI) TABLET (FP) PO SCH (09:20)
[2018-12-23] MEDS: ENOXAPARIN NA (PORCINE) 40 MG/0.4 ML DISP.SYRIN SQ SCH (09:20)
[2018-12-23] MEDS: ASPIRIN COATED 81 MG TABLET.EC PO SCH (09:20)
[2018-12-23] MEDS ORDERED: FUROSEMIDE 20 MG TABLET (FP) PO SCH (10:00)
--- NOTE | 2018-12-23 10:11 | PN ---
Teaching Attending Note Name of Resident: Kamari Nevarez ATTENDING PHYSICIAN STATEMENT I saw and evaluated the patient. I reviewed the resident's note and discussed the case with the resident. I agree with the resident's findings and plan as documented. SUBJECTIVE: No fever or chills. No KIMBALL . LE edema and pain improved . NO SOB OBJECTIVE: NAD, MMM CV: RRR, no MRG. Lungs: CTAB LE: improved edema , trace today , decreased redness. . tenderness to palpation . DP 2+ b/l. ASSESSMENT AND PLAN: Pleasant 78 y/o lady with h/o HTN,Restless leg syndrome, diastolic CHF, HLD, Sciatica, OA , and recent back SX who presented with worsening LE edema and pain. 1- LE edema. 2- Acute diastolic heart failure 3- Uncontrolled HTN 4- Restless leg syndrome 5- a run of SVT on tele 12/21 plan : - tele reviewed, no new events - cont lasix. at dc will either increase lasix dose or add spironolactone. await Dr. Henri Castellanos - will d/w CArd increasing coreg dose - increase losartan to 100 mg - cont neupro patch - tylenol DVT PX : lovenox DC home today . did well with PT. will explore if she wants VNS
--- NOTE | 2018-12-23 12:00 | DS ---
Physical Exam: SUBJECTIVE: Patient seen and examined at bedside. Feel very well. No complaints. OBJECTIVE: Vital Signs Period Temp Pulse Resp BP Sys/Naqvi Pulse Ox Last 24 Hr 97.8 F-98.8 F 74-82 18-20 145-170/51-124 95-96 PHYSICAL EXAM Gen: Well appearing. Comfortable in bed HEENT: NCAT, EOMI Neck: supple, no jvd noted Cardio: rrr, s1s2, no mrg Pulm: cta b/l, no crackles appreciated Abd: soft, nontender, nondistended Ext: no edema, 2+ pulses LABS Laboratory Results - last 24 hr 12/23/18 05:30 Sodium 141 Potassium 3.4 L Chloride 106 Carbon Dioxide 26 Anion Gap 9 BUN 19 H Creatinine 0.5 L Est GFR (CKD-EPI)AfAm 105.94 Est GFR (CKD-EPI)NonAf 91.41 Random Glucose 105 Calcium 8.8 Imaging: EXAM#: TYPE/EXAM: RESULT: [id number] US/KIDNEY / RENAL US Rule out hydronephrosis Renal ultrasound. A real -time ultrasound examination of both kidneys was performed The right and left kidney measured 10.2 and 10 cm , respectively. Both kidneys are within normal limits in size and contour. No cystic or contour deforming solid mass lesion is identified . No gross renal stone or hydronephrosis is seen, bilaterally . Normal color Doppler flow in both kidneys. Visualized portion of the liver appears unremarkable IMPRESSION: Unremarkable examination . Both kidneys appear unremarkable without evidence of hydronephrosis. EXAM#: TYPE/EXAM: RESULT: [id number] US/DUPLEX VASCUL US-2LEGS Pain. Rule out deep venous thromboses Bilateral leg color Doppler and duplex venous ultrasound Grayscale, pulsed Doppler and color Doppler interrogation of both lower extremities deep venous system was performed. The common femoral vein , femoral vein, popliteal and posterior tibial vein were identified, bilaterally with a normal phasic wave form, adequate compressibility and adequate response to augmentation. Visualized portion of the greater saphenous and deep femoral vein are patent There is a Francis's cyst in the left popliteal fossa measuring 2 x 1.1 cm. Right popliteal fossa appears unremarkable. Impression: There is no evidence of deep venous thromboses in both lower extremities. Francis's cyst in the left popliteal fossa measuring 2 x 1.1 cm. EXAM#: TYPE/EXAM: RESULT: [id number] RAD/CHEST X-RAY PORTABLE* Questionable congestive heart failure Portable chest x-ray, AP sitting. Since prior chest x-ray dated 12/07/2016 the cardiac silhouette remains slightly enlarged with mild atherosclerotic unfolding of the aortic arch and there are mild bilateral increased lung markings. No focal infiltrates, pneumothorax or pleural effusion are identified. Mediastinum and visualized osseous structures appear intact Impression: Mild cardiomegaly and mild bilateral increased lung markings without definite evidence of pulmonary venous congestion. No focal infiltrates are identified. Echo (12/22/2018): LV systolic function normal. EF 55-60%. Normal RV. Mild mitral annular calcification and regurg. Mild tricuspid regurg. RVSP elevated at 30-40mmHg. Mild aortic sclerosis. HOSPITAL COURSE: Date of Admission:12/21/18 Date of Discharge: 12/23/18 Mrs High is an 78 yo F PMH of HTN, diastolic CHF, HLD, Sciatica, Restless Leg Syndrome and OA, who presented with 2-3 week h/o worsening B/L LE edema and pain which was interrupting sleep. She was diagnosed and admitted for CHF exacerbation. She had b/l US of the lower extremities, which ruled out DVT. She had a CXR which showed mild cardiomegally and increased lung markings. She was seen by cardiology who stopped her Mobic, and added Aldactone. Her losartan was increased. She was treated with diuretics and resolved quickly. Pt is currently stable for discharge home with instructions to follow up with her PCP and Sex Offender Treatment Professional within 1-2 weeks. Minutes to complete discharge: 45 Discharge Summary Reason For Visit: EDEMA Current Active Problems Edema (Acute) Swelling of both lower extremities (Acute) Diastolic dysfunction without heart failure (Chronic) Hypertension (Chronic) Venous insufficiency of both lower extremities (Chronic) Condition: Good - Instructions Diet, Activity, Other Instructions: You were in the hospital because of heart failure and leg swelling. We made the following changes to your medications: Your mobic was discontinued. Please stop this medication. Your Losartan increased 50mg to 100mg daily. Start taking Aldactone 25mg daily. Please resume taking your other medications as before. You will need to follow up with your cardiolgist and your primary care doctor, ideally within 1 week. It is important that you follow up, especially because changes were made to your medications. Referrals: Kay Rucker MD [Primary Care Provider] - Rafael Perez MD [Staff Physician] - Disposition: HOME - Home Medications Comprehensive Discharge Medication List: Ambulatory Orders Atorvastatin Ca [Lipitor] 10 mg PO HS 12/06/16 Carvedilol [Coreg -] 25 mg PO BID tablet 12/13/16 Multivitamins [Multivit ([facility] Formul[facility])] 1 tab PO DAILY tab 02/05/17 Acetaminophen [Tylenol .Extra-Strength -] 500 mg PO Q6H PRN 08/25/18 Aspirin [Ecotrin] 81 mg PO DAILY 08/25/18 Acetaminophen W/ Codeine #3 [Tylenol # 3 -] 1 tab PO TID PRN 12/22/18 Pramipexole Dihydrochloride [Mirapex -] 0.5 mg PO DAILY 12/22/18 Rotigotine [Neupro] 2 mg TP DAILY 12/22/18 Furosemide [Lasix] 40 mg PO DAILY #30 tablet 12/23/18 Losartan Potassium 100 mg PO DAILY #30 tablet 12/23/18 Spironolactone [Aldactone] 25 mg PO DAILY #30 tablet 12/23/18 This patient is new to me today: No Emergency Visit: No Critical Care patient: No - Discharge Referral Referred to [facility] No
[2018-12-23 12:01] VITALS: BP 137/74; PULSE 72; TEMP 97.9
[2018-12-23] MEDS ORDERED: SPIRONOLACTONE 25 MG TABLET (FP) PO SCH (12:30)
[2018-12-23] MEDS ORDERED: LOSARTAN POTASSIUM 50 MG TABLET (FP) PO SCH (12:30)
== END 2018-12-23 12:36 | disposition home or self-care (01) | DRG 299 ==
LOC: JER 13:01 → JERBED 17:19 → OBSVTOIN 18:24 → J6S 18:29 → J4W 19:54
PROVIDERS: ADMIT Internal Medicine; ATTEND Internal Medicine
DX: I87.2 Venous insufficiency (chronic) (peripheral) (principal); I50.31 Acute diastolic (congestive) heart failure; I47.1 Supraventricular tachycardia; I11.0 Hypertensive heart disease with heart failure; E78.5 Hyperlipidemia, unspecified; Z96.643 Presence of artificial hip joint, bilateral; M54.30 Sciatica, unspecified side; G25.81 Restless legs syndrome; M19.90 Unspecified osteoarthritis, unspecified site; Z88.0 Allergy status to penicillin; M71.22 Synovial cyst of popliteal space [Baker], left knee; I34.0 Nonrheumatic mitral (valve) insufficiency; E87.6 Hypokalemia
CPT/HCPCS: 36415; 71045-TC-FY; 76775-TC; 80048; 80053; 81003; 82550; 82553; 83036; 83735; 83880; 84100; 84443; 84484; 85025; 85027; 93005; 93010; 93306-TC; 93970-TC; 97116-GP; 97161-GP; 99282-25; G0378

== ENCOUNTER 2018-12-25 02:31 | Emergency (ER) | payer OTHER, MEDICARE ==
--- NOTE | 2018-12-25 03:03 | PDOC ---
History of Present Illness - General Chief Complaint: Pain, Acute Stated Complaint: LEG PAIN Time Seen by Provider: 12/25/18 03:02 - History of Present Illness Initial Comments: 12/25/18 03:15 Ms. High is an 78 yo female w/ pmh of HTN, diastolic CHF, HLD, Sciatica, Restless Leg Syndrome, Osteo arthritis, and recent admission 12/21-12/23 for CHF exacerbation (diastolic) and leg swelling with pain. During recent stay patient received CARMEN renal US (normal), CARMEN LE duplex (clemente's cyst in L popliteal fossa only), XR revealing mild cardiomegaly and CARMEN increased lung markings, Echo w/ EF 55-60% w/ mild tricuspid regurg and mild aortic sclerosis. Patient was treated w/ diuretics in hospital and pain improved with decrease in leg swelling. Patient returns as leg pain recurred all day yesterday (12/24) and woke her up early this AM. The patient denies chest pain, shortness of breath, headache and dizziness. Denies fever, chills, nausea, vomit, diarrhea and constipation. Denies dysuria, frequency, urgency and hematuria. PCP: Kya Rucker MD Past History - Past Medical History Allergies/Adverse Reactions: Allergies Allergy/AdvReac Type Severity Reaction Status Date / Time Penicillins Allergy Itching Verified 12/25/18 02:57 Home Medications: Ambulatory Orders Atorvastatin Ca [Lipitor] 10 mg PO HS 12/06/16 Carvedilol [Coreg -] 25 mg PO BID tablet 12/13/16 Multivitamins [Multivit ([facility] Formulary)] 1 tab PO DAILY tab 02/05/17 Acetaminophen [Tylenol .Extra-Strength -] 500 mg PO Q6H PRN 08/25/18 Aspirin [Ecotrin] 81 mg PO DAILY 08/25/18 Acetaminophen W/ Codeine #3 [Tylenol # 3 -] 1 tab PO TID PRN 12/22/18 Pramipexole Dihydrochloride [Mirapex -] 0.5 mg PO DAILY 12/22/18 Rotigotine [Neupro] 2 mg TP DAILY 12/22/18 Furosemide [Lasix] 40 mg PO DAILY #30 tablet 12/23/18 Losartan Potassium 100 mg PO DAILY #30 tablet 12/23/18 Spironolactone [Aldactone] 25 mg PO DAILY #30 tablet 12/23/18 Sulfamethoxazole/Trimethoprim [Bactrim Ds -] 1 tab PO BID #14 tablet 12/25/18 Anemia: No Asthma: No Cancer: No (PRECANCEROUS FACILA LESIONS REMOVED) Cardiac Disorders: No CVA: No COPD: No CHF: No Dementia: No Diabetes: No GI Disorders: No Disorders: No HTN: Yes Hypercholesterolemia: Yes Liver Disease: No Seizures: No Thyroid Disease: No - Surgical History Abdominal Surgery: No Appendectomy: No Cardiac Surgery: No Cholecystectomy: No Lung Surgery: No Neurologic Surgery: No Orthopedic Surgery: Yes (LEFT HIP REPLACEMENT-2018, RIGHT HIP REPLACEMENT- 2009) - Suicide/Smoking/Psychosocial Hx Smoking History: Never smoked Have you smoked in the past 12 months: No Hx Alcohol Use: No Drug/Substance Use Hx: No Substance Use Type: None Hx Substance Use Treatment: No Review of Systems - Review of Systems Comments:: 12/25/18 03:27 GENERAL/CONSTITUTIONAL: No fever or chills. No weakness. HEAD, EYES, EARS, NOSE AND THROAT: No change in vision. No ear pain or discharge. No sore throat. CARDIOVASCULAR: No chest pain or shortness of breath RESPIRATORY: No cough, wheezing, or hemoptysis. GASTROINTESTINAL: No nausea, vomiting, diarrhea or constipation. GENITOURINARY: No dysuria, frequency, or change in urination. MUSCULOSKELETAL: +CARMEN cramping leg pain centered around knees. No neck or back pain. SKIN: No rash NEUROLOGIC: No headache, vertigo, loss of consciousness, or change in strength/ sensation. ENDOCRINE: No increased thirst. No abnormal weight change HEMATOLOGIC/LYMPHATIC: No anemia, easy bleeding, or history of blood clots. ALLERGIC/IMMUNOLOGIC: No hives or skin allergy. *Physical Exam - Physical Exam Comments: 12/25/18 03:27 GENERAL: Awake, alert, and fully oriented, in no acute distress HEAD: No signs of trauma, normocephalic, atraumatic EYES: PERRLA, EOMI, sclera anicteric, conjunctiva clear ENT: Auricles normal inspection, hearing grossly normal, nares patent, oropharynx clear without exudates. Moist mucosa NECK: Normal ROM, supple, no lymphadenopathy, JVD, or masses LUNGS: No distress, speaks full sentences, clear to auscultation bilaterally HEART: Regular rate and rhythm, normal S1 and S2, no murmurs, rubs or gallops, peripheral pulses normal and equal bilaterally. ABDOMEN: Soft, nontender, normoactive bowel sounds. No guarding, no rebound. No masses EXTREMITIES: +Minor pedal edema CARMEN. Otherwise normal inspection, normal range of motion, no edema. No clubbing or cyanosis. NEUROLOGICAL: Cranial nerves II through XII grossly intact. Normal speech, normal gait, no focal sensorimotor deficits SKIN: Warm, Dry, normal turgor, no rashes or lesions noted. ED Treatment Course - LABORATORY CBC & Chemistry Diagram: 12/25/18 03:43 12/25/18 03:43 Medical Decision Making - Medical Decision Making 12/25/18 07:16 Ms. High is an 78 yo female w/ pmh as described who presents for evaluation of leg pain concerning for Restless leg vs. DVT more unlikely with recent US. CXR performed and negative. Patient evaluated with labs as below and found to have UTI. Attempted to control pain with valium as well as toradol without relief. Patient started on Rocephin for UTI. Discussed patient with Neurology who recommended further outpatient evaluation. Patient requested information for new Neurologist so will provided. ABX sent to patient's pharmacy. Discharging to home for further outpatient neurologic evaluation. Laboratory Results - last 24 hr 12/25/18 12/25/18 12/25/18 03:43 03:43 03:52 WBC 6.4 RBC 4.11 Hgb 12.6 Hct 38.2 MCV 93.0 MCH 30.7 MCHC 33.0 RDW 13.3 Plt Count 299 MPV 7.2 L Absolute Neuts (auto) 2.3 Neutrophils % 35.5 L D Lymphocytes % 48.5 H D Monocytes % 12.7 H Eosinophils % 2.5 Basophils % 0.8 Nucleated RBC % 0 Sodium 141 Potassium 4.6 Chloride 107 Carbon Dioxide 27 Anion Gap 8 BUN 17 Creatinine 0.7 Est GFR (CKD-EPI)AfAm 94.84 Est GFR (CKD-EPI)NonAf 81.83 Random Glucose 101 Calcium 8.8 Magnesium 1.9 Total Bilirubin 0.4 AST 41 H ALT 40 Alkaline Phosphatase 74 Creatine Kinase 189 Creatine Kinase Index 1.2 CK-MB (CK-2) 2.4 Troponin I < 0.02 B-Natriuretic Peptide 145.1 Total Protein 6.7 Albumin 3.8 Urine Color Yellow Urine Appearance Clear Urine pH 6.0 Ur Specific Tama 1.013 Urine Protein Negative Urine Glucose (UA) Negative Urine Ketones Negative Urine Blood Negative Urine Nitrite Negative Urine Bilirubin Negative Urine Urobilinogen 0.2 Ur Leukocyte Esterase 2+ H Urine WBC (Auto) 29.3 Urine RBC (Auto) 0.7 Urine Casts (Auto) 0.35 U Epithel Cells (Auto) 0.3 Urine Bacteria (Auto) 2164.8 *DC/Admit/Observation/Transfer Diagnosis at time of Disposition: Leg pain Qualifiers: Laterality: unspecified laterality Qualified Code(s): M79.606 - Pain in leg, unspecified - Discharge Dispostion Disposition: HOME - Referrals Referrals: Kay Rucker MD [Primary Care Provider] - Romeo Hoff MD [Staff Physician] - - Patient Instructions Printed Discharge Instructions: DI for Leg Pain Additional Instructions: You were evaluated today in the ER for your leg pain. We evaluated you with labs and found you to have a UTI. We started treatment in the ER and sent antibiotics to your pharmacy. Per your request we have also provided new neurologist information you may use for further evaluation. Please follow-up as discussed. Return to ER if any further pain, fever, chills, or other concerning symptoms. - Post Discharge Activity
[2018-12-25 03:04] VITALS: TEMP 98.4; BMI 28.1
[2018-12-25 03:58] LABS: BASO % 0.8 % (0-2.0); EOS % 2.5 % (0-4.5); HEMATOCRIT 38.2 % (32.4-45.2); HEMOGLOBIN 12.6 GM/dL (10.7-15.3); LYMPH % 48.5 % (8-40); MCH 30.7 pg (25.7-33.7); MEAN PLT VOLUME 7.2 fl (7.5-11.1); MONO % 12.7 % (3.8-10.2); NEUT % 35.5 % (42.8-82.8); PLATELET COUNT 299 K/MM3 (134-434); RBC 4.11 M/mm3 (3.60-5.2); RDW 13.3 % (11.6-15.6); WHITE BLOOD COUNT 6.4 K/mm3 (4.0-10.0)
[2018-12-25 04:05] LABS: URINE APPEARANCE CLEAR; URINE BILIRUBIN NEGATIVE (NEGATIVE); URINE COLOR YELLOW; URINE GLUCOSE (UA) NEGATIVE (NEGATIVE); URINE KETONE NEGATIVE (NEGATIVE); URINE LEUK ESTERASE 2+ (NEGATIVE); URINE NITRITE NEGATIVE (NEGATIVE); URINE PROTEIN NEGATIVE (NEGATIVE); URINE UROBILINOGEN 0.2 mg/dL (0.2-1.0)
[2018-12-25] MEDS ORDERED: KETOROLAC TROMETHAMINE 15 MG/ML VIAL IVPUSH ONE (04:09)
[2018-12-25] MEDS ORDERED: KETOROLAC TROMETHAMINE 15 MG/ML VIAL ONE (04:11)
[2018-12-25 04:33] LABS: ALBUMIN 3.8 g/dl (3.4-5.0); ALK PHOS 74 U/L (45-117); ANION GAP 8 MMOL/L (8-16); BILIRUBIN,TOTAL 0.4 mg/dL (0.2-1); BLOOD UREA NITROGEN 17 mg/dL (7-18); CALCIUM 8.8 mg/dL (8.5-10.1); CHLORIDE 107 mmol/L (98-107); CO2 27 mmol/L (21-32); CREATININE 0.7 mg/dL (0.55-1.3); GLUCOSE,RANDOM 101 mg/dL (74-106); MAGNESIUM 1.9 mg/dL (1.8-2.4); N-TERMINAL BNP 145.1 pg/ml (5-450); POTASSIUM 4.6 mmol/L (3.5-5.1); SGOT/AST 41 U/L (15-37); SGPT/ALT 40 U/L (13-61); SODIUM 141 mmol/L (136-145); TOT PROT 6.7 g/dl (6.4-8.2)
[2018-12-25] MEDS ORDERED: CEFTRIAXONE 1,000 MG in DEXTROSE 5%-WATER - 50 ML IVPB ONE (04:40)
--- NOTE | 2018-12-25 04:54 | PDOC ---
Attending Attestation - Resident Resident Name: Alex Damon - ED Attending Attestation I have performed the following: I have examined & evaluated the patient, The case was reviewed & discussed with the resident, I agree w/resident's findings & plan, Exceptions are as noted - HPI HPI: 12/25/18 04:49 78 yo F h/o spinal stenosis, spinal surgery 08/26, ho restless leg, chf, here with c/o bilat leg pain. described as a cramping sensation upper gastroc, posteriorly. was admitted 4 days ago for 2 days for leg swelling and pain, was diuresed for chf found to have peripheral edema. lasix was increased from 20 to 40mg daily. . and spironolactone was added. increased losartan to 100mg pt has had bilat hip replacement. no known h/;o severe arthritis in knees. no trauma. no cp no sob. did have dopplers on recent admission which were negative for DVT. shes tried tramadol at home no relief. - Physicial Exam PE: 12/25/18 04:51 awake alert lungs clear bilaterally heart rrr no mrg abd soft nt nd ext wwp 2 + dp/ pt bilat. mild peripheral edema. 1+ , ttp over anterior villarreal and calf, hypereshesia. FROM at knee, no effusion, no crepitus. . hip nt from. nuero sensation intact. - Medical Decision Making 12/25/18 04:54 differential restless leg, hypokalemia, hypomagnesium, hypocalcemic or hypercalcemic, doppler recent negative. will try toradol for pain, and tylenol possible muscle relaxer for spasm. pt follows with dr nash nuerology. 12/25/18 04:57 pt may require repeat mri as outpt as consideration for nerve pain, sxs started one month ago after recent spinal surgery ad physical therapy. minimal relief with toradol. will given valium 2.5 mg po. Heart Score/ECG Review #1 ECG reviewed & interpreted by me at: 05:04 General ECG Interpretation: Sinus Rhythm, Normal Rate (71), Normal Intervals, No acute ischemic changes
[2018-12-25] MEDS ORDERED: diazePAM 5 MG TABLET PO ONE (04:56)
[2018-12-25] MEDS ORDERED: diazePAM 5 MG TABLET ONE (05:12)
[2018-12-25] MEDS ORDERED: CEFTRIAXONE 1 GM/50 ML BAG ONE (05:24)
[2018-12-25 05:25] LABS: EPI CELLS 0.3 /HPF (0-5/HPF); URINE BACTERIA 2164.8 /hpf (NEGATIVE); URINE CASTS 0.35 /lpf (0-8); URINE RBC 0.7 /hpf (0-4); URINE WBC 29.3 /hpf (0-5)
[2018-12-25 08:11] VITALS: BP 132/68; PULSE 81
--- NOTE | 2018-12-25 11:00 | EKG ---
Test Reason : Blood Pressure : / mmHG Vent. Rate : 071 BPM Atrial Rate : 071 BPM P-R Int : 152 ms QRS Dur : 072 ms QT Int : 420 ms P-R-T Axes : 037 018 030 degrees QTc Int : 456 ms POOR DATA QUALITY, INTERPRETATION MAY BE ADVERSELY AFFECTED NORMAL SINUS RHYTHM NORMAL ECG WHEN COMPARED WITH ECG OF 21-DEC-2018 14:39, NO SIGNIFICANT CHANGE WAS FOUND Confirmed by LANEY BRUNO MD ([id number]) on 12/25/2018 10:59:56 AM Referred By: Confirmed By:LANEY BRUNO MD
== END 2018-12-25 08:00 | disposition home or self-care (01) ==
LOC: JER 02:31
PROC: 3E03329 Introduction of Other Anti-infective into Peripheral Vein, Percutaneous Approach (ICD-10-PCS; principal; 2018-12-25)
PROC: 3E0333Z Introduction of Anti-inflammatory into Peripheral Vein, Percutaneous Approach (ICD-10-PCS; 2018-12-25)
DX: M79.605 Pain in left leg (principal); M79.604 Pain in right leg; I10 Essential (primary) hypertension; I50.9 Heart failure, unspecified; E78.5 Hyperlipidemia, unspecified; M19.90 Unspecified osteoarthritis, unspecified site
CPT/HCPCS: 36415; 71045-TC-FY; 80053; 81003; 82550; 82553; 83735; 83880; 84484; 85025; 87086; 87186; 93005; 93010; 99283-25

== ENCOUNTER 2019-01-02 05:30 | Emergency (ER) | payer OTHER, MEDICARE ==
[2019-01-02 06:03] VITALS: TEMP 98.1; BMI 28.5
--- NOTE | 2019-01-02 06:55 | PDOC ---
History of Present Illness - General Chief Complaint: Pain Stated Complaint: ABD PAIN Time Seen by Provider: 01/02/19 06:55 History Source: Patient - History of Present Illness Initial Comments: 01/02/19 07:17 The patient is an 78 year old female with a PMH of HTN, CHF, HLD, Sciatica, Restless Leg Syndrome and OA who presents to our ED c/o 1 day h/o abdominal pain. Daughter @ bedside assists in history. Pain started yesterday around 6 or 7 p.m. when she was visiting her who is a patient here at [facility]. Pain is diffuse, sharp, 9/10, with no identifying exacerbating or relieving factors. No fevers/chills, tolerating PO intake but notes limited appetite 2/2 to symptoms. Increased urinary urgency and frequency. Daughter states she spoke with patient's PMD Dr. Kay Santamaria yesterday and as patient had been c/ o increased drowsiness, she was told to decrease Lisinopril to 50 mg QD. Daughter also notes that patient was diagnosed with UTI on her previous admission here and recently finished a course of antibiotic. Cannot recall the name of the antibiotic. Patient took her medications this morning prior to presentation. Allergy: Penicillin Surgical: Lumbar Laminectomy (September 2018); R Hip replacement (2016); L Hip replacement Social: denies toxic habits PMD: Dr. Kay Santamaria Cardiology: Dr. Rafael Perez Neurology: Dr. Collazo Pain: Dr. Cal Stephens As per EMR, patient evaluated in 12/2018 for B/L LE pain and edema. Hospitalization 12/21/18-12/23/18 at which time patient was started on Aldactone (25 mg QD) and Lisinopril dosage was increased (50 mg QD to 100 mg QD) . Urine Cx grew E. Coli and patient given a prescription for Bactrim. Past History - Past Medical History Allergies/Adverse Reactions: Allergies Allergy/AdvReac Type Severity Reaction Status Date / Time Penicillins Allergy Itching Verified 01/02/19 06:04 Home Medications: Ambulatory Orders Atorvastatin Ca [Lipitor] 10 mg PO HS 12/06/16 Carvedilol [Coreg -] 25 mg PO BID tablet 12/13/16 Multivitamins [Multivit ([facility] Formulary)] 1 tab PO DAILY tab 02/05/17 Acetaminophen [Tylenol .Extra-Strength -] 500 mg PO Q6H PRN 08/25/18 Aspirin [Ecotrin] 81 mg PO DAILY 08/25/18 Acetaminophen W/ Codeine #3 [Tylenol # 3 -] 1 tab PO TID PRN 12/22/18 Pramipexole Dihydrochloride [Mirapex -] 0.5 mg PO DAILY 12/22/18 Rotigotine [Neupro] 2 mg TP DAILY 12/22/18 Furosemide [Lasix] 40 mg PO DAILY #30 tablet 12/23/18 Losartan Potassium 100 mg PO DAILY #30 tablet 12/23/18 Spironolactone [Aldactone] 25 mg PO DAILY #30 tablet 12/23/18 Sulfamethoxazole/Trimethoprim [Bactrim Ds -] 1 tab PO BID #14 tablet 12/25/18 Anemia: No Asthma: No Cancer: No (PRECANCEROUS FACILA LESIONS REMOVED) Cardiac Disorders: No CVA: No COPD: No CHF: No Dementia: No Diabetes: No GI Disorders: No Disorders: No HTN: Yes Hypercholesterolemia: Yes Liver Disease: No Seizures: No Thyroid Disease: No - Surgical History Abdominal Surgery: No Appendectomy: No Cardiac Surgery: No Cholecystectomy: No Lung Surgery: No Neurologic Surgery: No Orthopedic Surgery: Yes (LEFT HIP REPLACEMENT-2018, RIGHT HIP REPLACEMENT- 2009) - Suicide/Smoking/Psychosocial Hx Smoking History: Never smoked Have you smoked in the past 12 months: No Information on smoking cessation initiated: No Hx Alcohol Use: No Drug/Substance Use Hx: No Substance Use Type: None Hx Substance Use Treatment: No Review of Systems - Review of Systems Constitutional: No: Chills, Fever HEENTM: No: Recent change in vision Respiratory: No: Cough, Shortness of Breath Cardiac (ROS): No: Chest Pain, Lightheadedness, Palpitations, Syncope ABD/GI: Yes: Abdominal cramping. No: Constipated, Diarrhea, Nausea *Physical Exam - Vital Signs Last Vital Signs Temp Pulse Resp BP Pulse Ox 98.1 F 65 19 162/81 97 01/02/19 05:30 01/02/19 05:30 01/02/19 05:30 01/02/19 05:30 01/02/19 05:30 - Physical Exam General Appearance: Yes: Nourished, Appropriately Dressed HEENT: positive: Normal Voice, Hearing Grossly Normal Neck: positive: Trachea midline, Supple Respiratory/Chest: positive: Lungs Clear, Normal Breath Sounds. negative: Labored Respiration, Rapid RR Cardiovascular: positive: S1, S2, Other (B/L LE edema, non-pitting (chronic)) Vascular Pulses: Dorsalis-Pedis (R): 2+, Doralis-Pedis (L): 2+ Gastrointestinal/Abdominal: positive: Normal Bowel Sounds, Other (Suprapubic and R flank TTP; no peritoneal sign) Extremity: positive: Normal Capillary Refill, Normal Inspection Integumentary: positive: Normal Color, Dry, Warm Neurologic: positive: imcu nurse II-XII NML intact, Fully Oriented, Alert Heart Score/ECG Review - ECG Impressions Comment:: 01/02/19 08:11 EKG shows NSR HR 73, normal intervals, no deviations, no ANITA/STD/TWI ED Treatment Course - LABORATORY CBC & Chemistry Diagram: 01/02/19 08:00 01/02/19 08:00 Medical Decision Making - Medical Decision Making 01/02/19 07:20 Ms. High is an 78 year old female with acute onset abdominal pain. Uncomfortable and non-toxic appearing. VS unremarkable. R flank and suprapubic TTP. DDx includes nephrolithiasis, cystitis, gastritis, gastroenteritis also consider abdominal cramping 2/2 to electrolyte derangement 2/2 to increased diuretic use. 01/02/19 08:11 EKG non-ischemic as documented in EKG section of EMR 01/02/19 08:54 Patient reassessed @ bedside Repeat belly exam with RUQ TTP Now c/o B/L LE cramping - states topical magnesium oil often provides relief of her symptoms, family member going to bring oil from patient's home 01/02/19 09:06 No leukocytosis UA clean, UCx pending 01/02/19 09:48 Mild Hyperkalemia (5.3) and Hypermagnesia (3.0) as well as BUN/Cr 29/1.2 (17/0.7 ) -- suspect patient's symptoms are 2/2 to electrolyte derangement likely medication induced over-diuresis; gentle hydration with 500 cc in light of patient's renal/CV compromise. My read of CT shows no nephrolithiasis, colitis 01/02/19 09:52 Toradol for analgesia Formal CT read pending 01/02/19 10:41 CT shows no acute findings, however read shows atrophy/fatty infiltration in L iliac psoas muscle, which is localized to patient's c/o pain. Case d/w radiology (Dr. Lea) who states fatty infiltration is non acute finding c/w atrophy. Patient reassessed @ bedside, symptomatically improved s/p analgesic control with Tylenol and Toradol. Also reports significant relief of B/L LE cramping with magnesium oil which she uses at home. As patient is hemodynamically stable, symptomatically improved and has close follow-up care for medication adjustment, will discharge home with return precautions. I discussed the physical exam findings, ancillary test results and final diagnoses with the patient. I answered all of the patient's questions. The patient was satisfied with the care received and felt comfortable with the discharge plan and treatment plan. The patient will return to the Emergency Department with any new, persistent or worsening symptoms. Clinical Impression: Abdominal cramping possibly 2/2 to over diuresis and electrolyte derangement medication side effect *DC/Admit/Observation/Transfer Diagnosis at time of Disposition: Abdominal cramping - Discharge Dispostion Disposition: HOME Condition at time of disposition: Good Decision to Admit order: No - Referrals Referrals: Kay Rucker MD [Primary Care Provider] - - Patient Instructions Printed Discharge Instructions: DI for Dehydration -- Adult Additional Instructions: You were evaluated today for your abdominal and leg cramping. At this time you are safe for discharge home. Please keep your previously scheduled appointment with your crime investigator special agent. In the interim, continue to take your medications as directed and drink plenty of water. Return to the Emergency Department for any new/worsening/concerning symptoms. - Post Discharge Activity
[2019-01-02] MEDS ORDERED: ACETAMINOPHEN 1000 MG/100 ML VIAL (NON FORMULARY) IVPB ONE (07:06)
--- NOTE | 2019-01-02 08:02 | PDOC ---
Attending Attestation - Resident Resident Name: Jayashree Stuart - ED Attending Attestation I have performed the following: I have examined & evaluated the patient, The case was reviewed & discussed with the resident, I agree w/resident's findings & plan, Exceptions are as noted - HPI HPI: 01/02/19 07:58 78 year old female with history of HTN, HLD, CHF, OA, restless leg syndrome presents with bilateral flank pain and diffuse abdominal discomfort since yesterday night. Earlier this month, the patient was admitted for CHF. At that time, was started on aldactone, and had some of her BP meds increased. Since then, pt has been urinating more frequently, but has been feeling less energetic. Yesterday night, started to develop a constant persistent bilateral flank and abdominal cramping. no fevers, chills. no nausea, vomiting, diarrhea, dysuria, hematuria. The patient reports that when she turns to certain sides of the body, the patient feels better. Has a hx of lumbar spinal stenosis. - Physicial Exam PE: 01/02/19 08:12 GENERAL: Awake, alert, and fully oriented, mild abdominal discomfort HEAD: No signs of trauma EYES: EOMI, sclera anicteric, conjunctiva clear ENT: Auricles normal inspection, hearing grossly normal, nares patent, Moist mucosa NECK: Normal ROM, supple, LUNGS: Breath sounds equal, clear to auscultation bilaterally. No wheezes, and no crackles HEART: Regular rate and rhythm, normal S1 and S2, no murmurs, rubs or gallops ABDOMEN: Soft, +abdominal discomfort to palpation. No guarding, no rebound. No masses CVA tenderness bilateral. EXTREMITIES: Normal range of motion, no edema. No clubbing or cyanosis. No cords, erythema, or tenderness NEUROLOGICAL: Cranial nerves II through XII grossly intact. Normal speech SKIN: Warm, Dry, normal turgor, no rashes or lesions noted. - Medical Decision Making 01/02/19 08:13 Vital Signs Temp Pulse Resp BP Pulse Ox 98.1 F 65 19 162/81 97 01/02/19 05:30 01/02/19 05:30 01/02/19 05:30 01/02/19 05:30 01/02/19 05:30 78-year-old female presents with abdominal cramping and bilateral flank pain. We 'll need to investigate with acute abdominal pathologies such as colitis, diverticulitis, appendicitis. However, it is possible the patient may be having severe muscle cramping secondary to alleged lites imbalance or dehydration. We' ll obtain labs, CAT scan and pelvis, pain control reassess. 01/02/19 10:34 CBC, BMP 01/02/19 08:00 01/02/19 08:00 CMP Sodium 140 mmol/L (136-145) 01/02/19 08:00 Potassium 5.3 mmol/L (3.5-5.1) H 01/02/19 08:00 Chloride 110 mmol/L (98-107) H 01/02/19 08:00 Carbon Dioxide 23 mmol/L (21-32) 01/02/19 08:00 Anion Gap 7 MMOL/L (8-16) L 01/02/19 08:00 BUN 29 mg/dL (7-18) H 01/02/19 08:00 Creatinine 1.2 mg/dL (0.55-1.3) 01/02/19 08:00 Est GFR (CKD-EPI)AfAm 49.43 01/02/19 08:00 Est GFR (CKD-EPI)NonAf 42.65 01/02/19 08:00 Random Glucose 108 mg/dL (74-106) H 01/02/19 08:00 Calcium 9.7 mg/dL (8.5-10.1) 01/02/19 08:00 Phosphorus 3.4 mg/dL (2.5-4.9) 01/02/19 08:00 Magnesium 3.0 mg/dL (1.8-2.4) H 01/02/19 08:00 Total Bilirubin 0.4 mg/dL (0.2-1) 01/02/19 08:00 AST 15 U/L (15-37) 01/02/19 08:00 ALT 27 U/L (13-61) 01/02/19 08:00 Alkaline Phosphatase 96 U/L (45-117) 01/02/19 08:00 Total Protein 7.5 g/dl (6.4-8.2) 01/02/19 08:00 Albumin 4.2 g/dl (3.4-5.0) 01/02/19 08:00 Lipase 197 U/L (73-393) 01/02/19 08:00 CAT scan demonstrates no acute findings. There is some questionable atrophy and fatty infiltration of the left iliac psoas muscle. We'll clarify radiology. If this is not an acute issue, I suspect the patient is likely having abdominal cramping secondary dehydration. Patient given some IV fluids, Tylenol and Toradol with improvement symptoms. Patient also rubbed magnesium will on the leg as well. 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 Encouraged patient to drink plenty fluids. Heart Score/ECG Review #1 ECG reviewed & interpreted by me at: 07:45 01/02/19 08:10 NSR 73, no std/mahesh, normal axis, normal intervals, QTC 423 msec
[2019-01-02] MEDS ORDERED: ACETAMINOPHEN INJECTION 100 ML IVPB ONE (08:04)
[2019-01-02 08:33] LABS: BASO % 0.7 % (0-2.0); HEMATOCRIT 38.2 % (32.4-45.2); HEMOGLOBIN 12.5 GM/dL (10.7-15.3); LYMPH % 36.2 % (8-40); MCH 30.3 pg (25.7-33.7); MCHC 32.8 g/dl (32.0-36.0); MEAN CELL VOLUME 92.2 fl (80-96); MONO % 10.1 % (3.8-10.2); PLATELET COUNT 342 K/MM3 (134-434); RBC 4.14 M/mm3 (3.60-5.2); RDW 13.3 % (11.6-15.6)
[2019-01-02 08:40] LABS: URINE APPEARANCE CLEAR; URINE BILIRUBIN NEGATIVE (NEGATIVE); URINE COLOR YELLOW; URINE GLUCOSE (UA) NEGATIVE (NEGATIVE); URINE KETONE NEGATIVE (NEGATIVE); URINE LEUK ESTERASE NEGATIVE (NEGATIVE); URINE NITRITE NEGATIVE (NEGATIVE); URINE PROTEIN NEGATIVE (NEGATIVE); URINE UROBILINOGEN 0.2 mg/dL (0.2-1.0)
[2019-01-02 09:08] LABS: ALBUMIN 4.2 g/dl (3.4-5.0); BILIRUBIN,TOTAL 0.4 mg/dL (0.2-1); CALCIUM 9.7 mg/dL (8.5-10.1); CREATININE 1.2 mg/dL (0.55-1.3); PHOSPHOROUS 3.4 mg/dL (2.5-4.9); POTASSIUM 5.3 mmol/L (3.5-5.1); TOT PROT 7.5 g/dl (6.4-8.2)
[2019-01-02] MEDS ORDERED: SODIUM CHLORIDE 0.9% 500 ML INFUS.BAG IV ONE (09:52)
[2019-01-02] MEDS ORDERED: KETOROLAC TROMETHAMINE 15 MG/ML VIAL IVPUSH ONE (09:58)
--- NOTE | 2019-01-02 11:26 | EKG ---
Test Reason : Blood Pressure : / mmHG Vent. Rate : 073 BPM Atrial Rate : 073 BPM P-R Int : 166 ms QRS Dur : 068 ms QT Int : 384 ms P-R-T Axes : 060 018 041 degrees QTc Int : 423 ms POOR DATA QUALITY, INTERPRETATION MAY BE ADVERSELY AFFECTED NORMAL SINUS RHYTHM POSSIBLE LEFT ATRIAL ENLARGEMENT BORDERLINE ECG Confirmed by Robbie Ahmadi MD ([id number]) on 01/02/2019 11:26:35 AM Referred By: Confirmed By:Robbie Ahmadi MD
[2019-01-02] MEDS ORDERED: KETOROLAC TROMETHAMINE 15 MG/ML VIAL ONE (12:07)
[2019-01-02 14:44] VITALS: BP 169/67; PULSE 77
== END 2019-01-02 14:45 | disposition home or self-care (01) ==
LOC: JER 05:30
PROC: 3E0333Z Introduction of Anti-inflammatory into Peripheral Vein, Percutaneous Approach (ICD-10-PCS; principal; 2019-01-02)
DX: E86.0 Dehydration (principal); E87.5 Hyperkalemia; E83.41 Hypermagnesemia; R10.30 Lower abdominal pain, unspecified; I11.0 Hypertensive heart disease with heart failure; I50.9 Heart failure, unspecified; E78.5 Hyperlipidemia, unspecified; G25.81 Restless legs syndrome; M19.90 Unspecified osteoarthritis, unspecified site; Z87.440 Personal history of urinary (tract) infections; Z96.643 Presence of artificial hip joint, bilateral
CPT/HCPCS: 36415; 74176-TC; 80053; 81003; 83690; 83735; 84100; 85025; 87086; 93005; 93010; 96374; 99283-25; J0131

== ENCOUNTER 2019-01-03 04:50 | Inpatient (IN) | payer OTHER, MEDICARE ==
[2019-01-03] MEDS ORDERED: morphine SULFATE 4 MG/ML VIAL ONE (06:12)
--- NOTE | 2019-01-03 06:14 | PDOC ---
History of Present Illness - History of Present Illness Initial Comments: 78 year old female with PMH of HTN, HLD, CHF, OA, restless leg syndrome presents with bilateral flank pain and diffuse abdominal discomfort for the past week that worsened a few nights ago. She was seen in our ED one day ago with similar complaints and it was attributed to dehydration and abdominal cramping. Patient states that the pain is unbearable now despite Tylenol and gabapentin. Of note she has had lumbar surgery in the past and had an MRI only evidencing spinal stenosis. She has had bilateral leg cramping for the past year and is seeing an orthopedic surgeon for that management. 01/03/19 06:36 <Chao Zhou - Last Filed: 01/03/19 06:36> <Deon Floyd - Last Filed: 01/03/19 11:25> - General Time Seen by Provider: 01/03/19 06:14 Past History - Past Medical History Anemia: No Asthma: No Cancer: No (PRECANCEROUS FACILA LESIONS REMOVED) Cardiac Disorders: No CVA: No COPD: No CHF: No Dementia: No Diabetes: No GI Disorders: No Disorders: No HTN: Yes Hypercholesterolemia: Yes Liver Disease: No Seizures: No Thyroid Disease: No - Surgical History Abdominal Surgery: No Appendectomy: No Cardiac Surgery: No Cholecystectomy: No Lung Surgery: No Neurologic Surgery: No Orthopedic Surgery: Yes (LEFT HIP REPLACEMENT-2018, RIGHT HIP REPLACEMENT- 2009) - Suicide/Smoking/Psychosocial Hx Smoking History: Never smoked Have you smoked in the past 12 months: No Hx Alcohol Use: No Drug/Substance Use Hx: No Substance Use Type: None Hx Substance Use Treatment: No <Chao Zhou - Last Filed: 01/03/19 06:36> <Deon Floyd - Last Filed: 01/03/19 11:25> - Past Medical History Allergies/Adverse Reactions: Allergies Allergy/AdvReac Type Severity Reaction Status Date / Time Penicillins Allergy Itching Verified 01/02/19 06:04 Home Medications: Ambulatory Orders Atorvastatin Ca [Lipitor] 10 mg PO HS 12/06/16 Carvedilol [Coreg -] 25 mg PO BID tablet 12/13/16 Multivitamins [Multivit ([facility] Formulary)] 1 tab PO DAILY tab 02/05/17 Acetaminophen [Tylenol .Extra-Strength -] 500 mg PO Q6H PRN 08/25/18 Aspirin [Ecotrin] 81 mg PO DAILY 08/25/18 Acetaminophen W/ Codeine #3 [Tylenol # 3 -] 1 tab PO TID PRN 12/22/18 Pramipexole Dihydrochloride [Mirapex -] 0.5 mg PO DAILY 12/22/18 Rotigotine [Neupro] 2 mg TP DAILY 12/22/18 Furosemide [Lasix] 40 mg PO DAILY #30 tablet 12/23/18 Losartan Potassium 100 mg PO DAILY #30 tablet 12/23/18 Spironolactone [Aldactone] 25 mg PO DAILY #30 tablet 12/23/18 Sulfamethoxazole/Trimethoprim [Bactrim Ds -] 1 tab PO BID #14 tablet 12/25/18 Review of Systems - Review of Systems Constitutional: No: Chills, Diaphoresis, Fever, Loss of Appetite HEENTM: No: Eye Pain, Blurred Vision, Tearing Respiratory: No: Cough, Orthopnea, Shortness of Breath Cardiac (ROS): No: Chest Pain, Edema, Irregular Heart Rate ABD/GI: No: Diarrhea, Nausea, Vomiting : No: Dysuria, Discharge, Frequency Integumentary: No: Flushing, Lesions, Lumps Neurological: No: Headache, Numbness, Paresthesia Psychiatric: No: Anxiety, Depression <Chao Zhou - Last Filed: 01/03/19 06:36> *Physical Exam - Physical Exam General Appearance: Yes: Nourished, Appropriately Dressed. No: Apparent Distress HEENT: positive: EOMI, VERENICE, Normal ENT Inspection, Normal Voice Neck: positive: Trachea midline, Normal Thyroid, Supple. negative: Tender, Rigid Respiratory/Chest: positive: Lungs Clear, Normal Breath Sounds. negative: Chest Tender, Respiratory Distress Cardiovascular: positive: Regular Rhythm, Regular Rate Gastrointestinal/Abdominal: positive: Normal Bowel Sounds, Flat, Soft. negative : Tender Musculoskeletal: negative: Normal Inspection <Chao Zhou - Last Filed: 01/03/19 06:36> ED Treatment Course - LABORATORY CBC & Chemistry Diagram: 01/03/19 05:55 01/03/19 05:55 <Chao Zhou - Last Filed: 01/03/19 06:36> - LABORATORY CBC & Chemistry Diagram: 01/03/19 05:55 01/03/19 05:55 - ADDITIONAL ORDERS Additional order review: Laboratory Results 01/03/19 05:55 Sodium 140 Potassium 4.9 Chloride 111 H Carbon Dioxide 20 L Anion Gap 9 BUN 18 Creatinine 0.9 Est GFR (CKD-EPI)AfAm 69.99 Est GFR (CKD-EPI)NonAf 60.39 Random Glucose 101 Calcium 9.3 Total Bilirubin 0.5 AST 16 ALT 25 Alkaline Phosphatase 92 Total Protein 7.3 Albumin 4.2 Total Amylase 71 Lipase 237 01/03/19 05:55 RBC 4.15 MCV 92.4 MCHC 32.9 RDW 13.0 MPV 7.4 L - Medications Given in the ED: ED Medications Discontinued Medications Generic Name Dose Route Start Last Admin Trade Name Yahaira PRN Reason Stop Dose Admin Morphine Sulfate 2 mg 01/03/19 09:51 01/03/19 10:50 Morphine Injection - IVPUSH 01/03/19 09:52 2 mg ONCE ONE Administration Sodium Chloride 1,000 ml 01/03/19 06:36 01/03/19 07:30 Normal Saline - IV 01/03/19 06:37 1,000 ml ONCE ONE Administration <Deon Floyd - Last Filed: 01/03/19 11:25> *DC/Admit/Observation/Transfer <Chao Zhou - Last Filed: 01/03/19 06:36> - Discharge Dispostion Decision to Admit order: Yes <Deon Floyd - Last Filed: 01/03/19 11:25> Diagnosis at time of Disposition: Intractable pain - Discharge Dispostion Condition at time of disposition: Fair - Referrals Referrals: Kay Rucker MD [Primary Care Provider] - - Patient Instructions - Post Discharge Activity
[2019-01-03] MEDS ORDERED: SODIUM CHLORIDE 0.9% 500 ML INFUS.BAG IV ONE (06:36)
[2019-01-03 06:41] LABS: HEMATOCRIT 38.4 % (32.4-45.2); HEMOGLOBIN 12.6 GM/dL (10.7-15.3); MCH 30.4 pg (25.7-33.7); MCHC 32.9 g/dl (32.0-36.0); MEAN CELL VOLUME 92.4 fl (80-96); MEAN PLT VOLUME 7.4 fl (7.5-11.1); PLATELET COUNT 319 K/MM3 (134-434); RBC 4.15 M/mm3 (3.60-5.2); WHITE BLOOD COUNT 7.8 K/mm3 (4.0-10.0)
[2019-01-03 09:28] LABS: CREATININE 0.9 mg/dL (0.55-1.3)
[2019-01-03 09:29] LABS: ALBUMIN 4.2 g/dl (3.4-5.0); CALCIUM 9.3 mg/dL (8.5-10.1); POTASSIUM 4.9 mmol/L (3.5-5.1); TOT PROT 7.3 g/dl (6.4-8.2)
[2019-01-03 09:30] LABS: BILIRUBIN,TOTAL 0.5 mg/dL (0.2-1)
[2019-01-03] MEDS ORDERED: morphine CARPU-JECT 2 MG/1 ML DISP.SYRIN IVPUSH ONE (09:51)
[2019-01-03] MEDS ORDERED: MORPHINE SULFATE 2 MG/ML VIAL ONE (10:40)
[2019-01-03] MEDS ORDERED: ACETAMINOPHEN 500 MG TABLET (FP) PO PRN (11:38)
[2019-01-03] MEDS ORDERED: MORPHINE SULFATE 2 MG/ML VIAL IVPUSH PRN (11:40)
[2019-01-03] MEDS ORDERED: SPIRONOLACTONE 25 MG TABLET (FP) PO SCH (11:45)
--- NOTE | 2019-01-03 11:58 | HP ---
CHIEF COMPLAINT: back pain PCP: dr mackenzie sanchez HISTORY OF PRESENT ILLNESS: 78 y/o f with significant pmh of spinal stenosis/ livamentum flavum hypertrophy/ lumbar laminectomy came in because eof back pain form last 3 days. Pt states that on Tuesday she tripped while walking and fell backward and pain started 2 days after that/ did not loose consciousness. Pain is in back and is in band like fashion around the b/l iliac crest. Pian is 8/ 10 in intensity, constant, increases while she tries to move or change position , didn't get better with Tylenol, now pain s radiating to posterior/lateral part of left thigh, calf and dorsum of her foot. Pt also states that she is use to get cortisone shots in her back for the pain but last week she couldn't get it as she was diagnosed with uti. Denies new numbness or weakness, denies urine and fecal incontinence. Denies fever or chills. Pt came with same complaint yesterday also and CT abdomen was done in er and was sent home with diagnosis of dehydration. Pt had MRI of her back last week. ECHO was done on 12/22 ER course was notable for: (1)cbc, cmp (2)iv fluid, morphine 2mg (3) Recent Travel: no PAST MEDICAL HISTORY: htn,hld, diastolic chf, oa PAST SURGICAL HISTORY: right and hip lip replacement. l4-s1 laminectomy 08/31/[address] sae [place], restless leg syndrome Social History: Smoking: no Alcohol:no Drugs: no Family History: son from leukemia Allergies Penicillins Allergy (Verified 01/02/19 06:04) Itching HOME MEDICATIONS: Home Medications Medication Instructions Recorded Atorvastatin Ca [Lipitor] 10 mg PO HS 12/06/16 Carvedilol [Coreg -] 25 mg PO BID tablet 12/13/16 Multivitamins [Multivit ([facility] 1 tab PO DAILY tab 02/05/17 Formulary)] Acetaminophen [Tylenol 500 mg PO Q6H PRN 08/25/18 .Extra-Strength -] Aspirin [Ecotrin] 81 mg PO DAILY 08/25/18 Acetaminophen W/ Codeine #3 1 tab PO TID PRN 12/22/18 [Tylenol # 3 -] Pramipexole Dihydrochloride 0.5 mg PO DAILY 12/22/18 [Mirapex -] Rotigotine [Neupro] 2 mg TP DAILY 12/22/18 Furosemide [Lasix] 40 mg PO DAILY #30 tablet 12/23/18 Losartan Potassium 100 mg PO DAILY #30 tablet 12/23/18 Spironolactone [Aldactone] 25 mg PO DAILY #30 tablet 12/23/18 Sulfamethoxazole/Trimethoprim 1 tab PO BID #14 tablet 12/25/18 [Bactrim Ds -] REVIEW OF SYSTEMS CONSTITUTIONAL: Absent: fever, chills, diaphoresis, generalized weakness, malaise, loss of appetite, weight change HEENT: Absent: rhinorrhea, nasal congestion, throat pain, throat swelling, difficulty swallowing, mouth swelling, ear pain, eye pain, visual changes CARDIOVASCULAR: Absent: chest pain, syncope, palpitations, irregular heart rate, lightheadedness , peripheral edema RESPIRATORY: Absent: cough, shortness of breath, dyspnea with exertion, orthopnea, wheezing, stridor, hemoptysis GASTROINTESTINAL: Absent: abdominal pain, abdominal distension, nausea, vomiting, diarrhea, constipation, melena, hematochezia GENITOURINARY: Absent: dysuria, frequency, urgency, hesitancy, hematuria, flank pain, genital pain MUSCULOSKELETAL: Absent: myalgia, arthralgia, joint swelling, back pain, neck pain SKIN: Absent: rash, itching, pallor HEMATOLOGIC/IMMUNOLOGIC: Absent: easy bleeding, easy bruising, lymphadenopathy, frequent infections ENDOCRINE: Absent: unexplained weight gain, unexplained weight loss, heat intolerance, cold intolerance NEUROLOGIC: Absent: headache, focal weakness or paresthesias, dizziness, unsteady gait, seizure, mental status changes, bladder or bowel incontinence PSYCHIATRIC: Absent: anxiety, depression, suicidal or homicidal ideation, hallucinations. PHYSICAL EXAMINATION GENERAL: Awake, alert, and fully oriented, in no acute distress. HEAD: Normal with no signs of trauma. EARS, NOSE, THROAT: Moist mucous membranes. NECK: Normal range of motion, supple without lymphadenopathy, JVD, or masses. LUNGS: Breath sounds equal, clear to auscultation bilaterally. No wheezes, and no crackles. No accessory muscle use. HEART: Regular rate and rhythm, normal S1 and S2 without murmur, rub or gallop. ABDOMEN: Soft, nontender, not distended, normoactive bowel sounds, no guarding, no rebound, no masses. MUSCULOSKELETAL: Normal range of motion at all joints. No bony deformities or tenderness. unable to perform st leg raising, power in b/l lower limb 5/5, sensation to touch normal, Pain present around the iliac crest more on right side. No tenderness in middle. Tendere to touch at sacroiliac junction and paraspinal area. UPPER EXTREMITIES: 2+ pulses, warm, well-perfused. No cyanosis. LOWER EXTREMITIES: 2+ pulses, warm, well-perfused. No calf tenderness. NEUROLOGICAL: Cranial nerves II-XII intact. Normal speech. Normal gait. PSYCHIATRIC: Cooperative. Good eye contact. Appropriate mood and affect. SKIN: Warm, dry, Laboratory Results - last 24 hr 01/03/19 01/03/19 05:55 05:55 WBC 7.8 RBC 4.15 Hgb 12.6 Hct 38.4 MCV 92.4 MCH 30.4 MCHC 32.9 RDW 13.0 Plt Count 319 MPV 7.4 L Sodium 140 Potassium 4.9 Chloride 111 H Carbon Dioxide 20 L Anion Gap 9 BUN 18 Creatinine 0.9 Est GFR (CKD-EPI)AfAm 69.99 Est GFR (CKD-EPI)NonAf 60.39 Random Glucose 101 Calcium 9.3 Total Bilirubin 0.5 AST 16 ALT 25 Alkaline Phosphatase 92 Total Protein 7.3 Albumin 4.2 Total Amylase 71 Lipase 237 ASSESSMENT/PLAN: intractable back pain ( acute on chronic back pain s/p fall 5 days ago with h/o spinal stenosis, ligamentum flavum hypertrophy, laminectomy , b/l hip replacement) MRO done on 12/28 - report reviewed CT done 01/02- b/l hip prosthesis in normal alignment physical therapy IV morphine 2 mg q6h prn tylenol po prn Dr sae grove consult activity out of bed as tolerated with certified surgical first assistant pt walks with walker in home. h/o HTN BP elevated. Pt didn take any home meds today start home meds h/o hld continue atorvastatin 10mg h/o diastolic CHF continue home meds restless leg syndrome continue gabapentin 300mg bid h/o uti recently competed a course of trimethoprim/ sulphamethoxazole from 12/25-01/01 now asymptomatic fluid:orally allowed electrolyte: repeat in am nutrition: low salt diet dvt pro: heparin sq gi pro: not required Pt son has list of meds which dose not have neupro and pramipexole in it: pt states these meds have been stopped dispo: med sug Visit type - Emergency Visit Emergency Visit: Yes ED Registration Date: 01/03/19 Care time: The patient presented to the Emergency Department on the above date and was hospitalized for further evaluation of their emergent condition. - New Patient This patient is new to me today: Yes Date on this admission: 01/07/19 - Critical Care Critical Care patient: No
[2019-01-03] MEDS ORDERED: ASPIRIN COATED 81 MG TABLET.EC ONE (12:44)
[2019-01-03] MEDS ORDERED: GABAPENTIN 100 MG CAPSULE (FP) ONE (12:44)
[2019-01-03] MEDS: GABAPENTIN 300 MG CAPSULE (FP) PO SCH ×2 (12:55→21:56)
[2019-01-03] MEDS: ASPIRIN COATED 81 MG TABLET.EC PO SCH (12:55)
[2019-01-03] MEDS: LOSARTAN POTASSIUM 50 MG TABLET (FP) PO SCH (12:55)
[2019-01-03] MEDS: FUROSEMIDE 40 MG TABLET (FP) PO SCH (12:55)
[2019-01-03] MEDS: CARVEDILOL 25 MG TABLET (FP) PO SCH ×2 (12:55→21:56)
[2019-01-03] MEDS: HEPARIN NA (PORCINE) 5,000 UNITS/ML 1ML VIAL SQ SCH ×2 (14:03→21:56)
--- NOTE | 2019-01-03 14:13 | PN ---
Teaching Attending Note Name of Resident: Martir Antonio ATTENDING PHYSICIAN STATEMENT I saw and evaluated the patient. I reviewed the resident's note and discussed the case with the resident. I agree with the resident's findings and plan as documented. SUBJECTIVE:78yo F wtih PMH HTN, HLD, CHF, OA, restless leg syndrome, spinal stenosis with ligamentum flavum hypertrophy s/p L4-S1 laminectomy in August 2018 with back pain x4days. reports falling last week backwards and landed on her bottom. was mechanical trip over something laying on the floor. denies LOC. now c/o band like pain across the lower abdomen at the level of the iliac crests. radiates down the anterior legs. no numbness or loss of sensation, good ROM, worse with excessive ambulation. No relief with tylenol. was unable to get her cortisone injection 2 weeks ago as she was on abx for UTI. and was scheduyled for one today but came to ER for pain instead. pain is worse at night. no relief with mobic. denies CP, SOB, fever, chills, N/V/C/D, bowel/ bladder incontinence, saddle anesthesia. also reports some aggressive PT at her first session a few weeks ago which also elicited a lot of pain. pt had an MRI done 12/28 for back pain showing L4-L5 disc bulge, L521 post- surgical changes with disc osteophyte complex enroaching on neural foramina without compression of L5 nerve OBJECTIVE: Last Vital Signs Temp Pulse Resp BP Pulse Ox 81 18 196/64 H 92 L 01/03/19 12:49 01/03/19 12:49 01/03/19 12:49 01/03/19 12:49 General NAD CV S1 S2 RRR no murmur/rub/gallop Lungs CTA B/L no wheezing/rales/rhonchi Abdomen soft NT/ND obese extremities no pedal edema back no bone point tenderness no muscular tenderness. hips is stable ASSESSMENT AND PLAN: 78yo F wtih PMH HTN, HLD, CHF, OA, restless leg syndrome, spinal stenosis with ligamentum flavum hypertrophy s/p L4-S1 laminectomy in August 2018 with back pain x4days 1. Intractable back pain-recent MRI results reviewed. spoke with surgical PA and no intervention at this time. PT and pain control. will call her painter helper sign if can administer epidural at this time for pain relief. will try NSAIDS for inflammatory improvement. PT eval. 2. Ecoli UTI- completed abx course on 01/01/19. no symptoms at this time 3. HTN- above goal. likely due to pain. re-start home medications. adjust as needed 4. dyslipidemia- statin 5. CHF- no signs of volume overload. was recently d/c off aldactone. will stop here as not taking due to recent dehydration 6. RLS- cont home medication 7. PT assessment and likely d/c tomorrow if pain improved. spoke with daughter present at bedside. all questions answered. verbalized understanding and agreement with plan
--- NOTE | 2019-01-03 14:53 | CONSULT ---
<Sonal Benjamin - Last Filed: 01/03/19 16:22> - Consultation REQUESTING PROVIDER: CONSULT REQUEST: We have been asked to surgically evaluate this patient for back and leg pain. PCP:Joyce Moncada HISTORY OF PRESENT ILLNESS: The patient is a 78 yo female s/p L4-S1 laminectomy 08/31/[address] Melchor. She came to the ER for an evaluation of band like pain in her back/abdomen mid level to thoracic area also pain to legs intermittent effecting both legs. The patient states that she had recently started PT treatments this spring. She had recovered from her Right hip and back surgery and had resumed her Physical Therapy treatments. The patient wanted to regain some strength and ability to climb stairs. While on her PT treatment she developed some back/leg pain. She was seen by Dr. Melchor as an outpt after obtaining an MRI on 12/28. This weekend she developed some upper abd discomfort and was seen in [facility] ER and discharged home with the diagnosis of dehydration. She returned today for continued back/leg pain and upper abd pain/ flank pain. She denies any nausea/emesis. The patient was scheduled for an epidural steroid injection for last week but was cancelled because of her treatment of a UTI. Another appointment was schedule for today but her pain was too severe and she came for evaluation. She is more comfortable now. She overall describes weakness/use of a walker to assist with walking in the past week. She fell backwards last Tuesday to a seated position. She denies any LOC. PMHx: restless leg syndrome PSHx: Right hip replacement 01/2018/ laminectomy of L4-L5 and L5-S1 Home Medications Medication Instructions Recorded Atorvastatin Ca [Lipitor] 10 mg PO HS 12/06/16 Carvedilol [Coreg -] 25 mg PO BID tablet 12/13/16 Multivitamins [Multivit ([facility] 1 tab PO DAILY tab 02/05/17 Formulary)] Acetaminophen [Tylenol 500 mg PO Q6H PRN 08/25/18 .Extra-Strength -] Aspirin [Ecotrin] 81 mg PO DAILY 08/25/18 Acetaminophen W/ Codeine #3 1 tab PO TID PRN 12/22/18 [Tylenol # 3 -] Pramipexole Dihydrochloride 0.5 mg PO DAILY 12/22/18 [Mirapex -] Rotigotine [Neupro] 2 mg TP DAILY 12/22/18 Furosemide [Lasix] 40 mg PO DAILY #30 tablet 12/23/18 Losartan Potassium 100 mg PO DAILY #30 tablet 12/23/18 Spironolactone [Aldactone] 25 mg PO DAILY #30 tablet 12/23/18 Sulfamethoxazole/Trimethoprim 1 tab PO BID #14 tablet 12/25/18 [Bactrim Ds -] Allergies Allergy/AdvReac Type Severity Reaction Status Date / Time Penicillins Allergy Itching Verified 01/02/19 06:04 REVIEW OF SYSTEMS: CONSTITUTIONAL: Absent: fever, chills CARDIOVASCULAR: Absent: chest pain, syncope RESPIRATORY: Absent: cough, shortness of breath GASTROINTESTINAL: Present: upper abdominal pain to flank area Absent: nausea, vomiting GENITOURINARY: Absent: dysuria, hematuria, flank pain NEUROLOGIC: Absent: bladder or bowel incontinence, no numbness or tingling PHYSICAL EXAM: GENERAL: Awake, alert, and fully oriented, in no acute distress. ABDOMEN: Soft, nontender, not distended. No CVA tenderness. LOWER EXTREMITIES: 2+ pulses, warm, well-perfused. No calf tenderness. Mild peripheral edema NEUROLOGICAL: Normal speech, gait not observed. 5/5 dorsi/plantar flexion b/l. Pain to left posterior thigh with straight leg raise. PSYCH: Cooperative. Good eye contact. Appropriate mood and affect. SKIN: back incision c/d/i Vital Signs Temperature Pulse Rate 81 01/03/19 12:49 Respiratory Rate 18 01/03/19 12:49 Blood Pressure 196/64 H 01/03/19 12:49 O2 Sat by Pulse Oximetry (%) 92 L 01/03/19 12:49 Lab Results WBC 7.8 K/mm3 (4.0-10.0) 01/03/19 05:55 RBC 4.15 M/mm3 (3.60-5.2) 01/03/19 05:55 Hgb 12.6 GM/dL (10.7-15.3) 01/03/19 05:55 Hct 38.4 % (32.4-45.2) 01/03/19 05:55 MCV 92.4 fl (80-96) 01/03/19 05:55 MCHC 32.9 g/dl (32.0-36.0) 01/03/19 05:55 RDW 13.0 % (11.6-15.6) 01/03/19 05:55 Plt Count 319 K/MM3 (134-434) 01/03/19 05:55 Sodium 140 mmol/L (136-145) 01/03/19 05:55 Potassium 4.9 mmol/L (3.5-5.1) 01/03/19 05:55 Chloride 111 mmol/L (98-107) H 01/03/19 05:55 Carbon Dioxide 20 mmol/L (21-32) L 01/03/19 05:55 Anion Gap 9 MMOL/L (8-16) 01/03/19 05:55 BUN 18 mg/dL (7-18) 01/03/19 05:55 Creatinine 0.9 mg/dL (0.55-1.3) 01/03/19 05:55 Random Glucose 101 mg/dL (74-106) 01/03/19 05:55 Calcium 9.3 mg/dL (8.5-10.1) 01/03/19 05:55 MRI: 12/[address] Melchor report: L3-L4 and L4-L5 thickened ligamentum flavum. No nerve compression at L3,L4,L5. Circumfrential disc buldge at L4-L5 with central stenosis. Anterior spondylolithesis of L3-L4 and L4-L5. CT abd without no hydronephrosis/no stones. No bowel obstruction. Problem List - Problems (1) Intractable pain Assessment/Plan: Case D/w Dr. Melchor, no further surgical treatment recommended. D/w the medical team and plan will be for pain managment with ultram and neurontin. Pain managment consult with Dr. Stephens Physical therapy evaluation If upper abd pain persists recommend further evaluation of abd with CT scan( oral constrast) Code(s): R52 - PAIN, UNSPECIFIED Visit type - Case Type Case Type: ED Admission - Emergency Emergency Visit: Yes ED Registration Date: 01/03/19 Care time: The patient presented to the Emergency Department on the above date and was hospitalized for further evaluation of their emergent condition. - New patient This patient is new to me today: No <Evens Melchor - Last Filed: 01/04/19 17:15> - Consultation REQUESTING PROVIDER: CONSULT REQUEST: We have been asked to surgically evaluate this patient for ( specify). PCP:Patricia Dickey HISTORY OF PRESENT ILLNESS: PMHx: PSHx: Home Medications Medication Instructions Recorded Atorvastatin Ca [Lipitor] 10 mg PO HS 12/06/16 Carvedilol [Coreg -] 25 mg PO BID tablet 12/13/16 Multivitamins [Multivit ([facility] 1 tab PO DAILY tab 02/05/17 Formulary)] Aspirin [Ecotrin] 81 mg PO DAILY 08/25/18 Furosemide [Lasix] 40 mg PO DAILY #30 tablet 12/23/18 Losartan Potassium 100 mg PO DAILY #30 tablet 12/23/18 Ergocalciferol (Vitamin D2) 50,000 unit PO WEEKLY 01/03/19 [Vitamin D2] Gabapentin 300 mg PO BID 01/03/19 Acetaminophen 1,000 mg PO Q8H PRN 15 Days #30 01/04/19 tablet Docusate Sodium [Colace -] 100 mg PO BID 30 Days #60 capsule 01/04/19 Ibuprofen [Motrin -] 400 mg PO Q8H PRN 15 Days #45 01/04/19 tablet Tramadol HCl 50 mg PO Q8H PRN #15 tablet MDD 3 01/04/19 tab Allergies Allergy/AdvReac Type Severity Reaction Status Date / Time Penicillins Allergy Itching Verified 01/02/19 06:04 REVIEW OF SYSTEMS: CONSTITUTIONAL: Absent: fever, chills, diaphoresis, generalized weakness, malaise, loss of appetite, weight change CARDIOVASCULAR: Absent: chest pain, syncope, palpitations, irregular heart rate, lightheadedness , peripheral edema RESPIRATORY: Absent: cough, shortness of breath, dyspnea with exertion, wheezing, stridor, hemoptysis GASTROINTESTINAL: Absent: abdominal pain, abdominal distension, nausea, vomiting, diarrhea, constipation, melena, hematochezia GENITOURINARY: Absent: dysuria, frequency, urgency, hesitancy, hematuria, flank pain, genital pain MUSCULOSKELETAL: Absent: myalgia, arthralgia, joint swelling, back pain, neck pain SKIN: Absent: rash, itching, pallor HEMATOLOGIC/IMMUNOLOGIC: Absent: easy bleeding, easy bruising, lymphadenopathy NEUROLOGIC: Absent: headache, focal weakness, paresthesias, dizziness, unsteady gait, seizure, mental status changes, bladder or bowel incontinence PSYCHIATRIC: Absent: anxiety, depression, suicidal or homicidal ideation, hallucinations. PHYSICAL EXAM: GENERAL: Awake, alert, and fully oriented, in no acute distress. HEAD: Normal with no signs of trauma. EYES: PERRL, sclera anicteric, conjunctiva clear. NECK: Normal ROM, supple without lymphadenopathy, JVD, or masses. LUNGS: Clear to auscultation bilat anteriorly. No wheezes, and no crackles. No accessory muscle use. HEART: Regular rate and rhythm. No murmurs ABDOMEN: Soft, nontender, not distended, normoactive bowel sounds, no guarding, no rebound, no masses. No organomegaly. MUSCULOSKELETAL: Normal ROM at all joints. No bony deformities or tenderness. No CVA tenderness. UPPER EXTREMITIES: 2+ pulses, warm, well-perfused. No cyanosis. Cap refill <2 seconds. No peripheral edema. LOWER EXTREMITIES: 2+ pulses, warm, well-perfused. No calf tenderness. No peripheral edema. NEUROLOGICAL: Normal speech, gait not observed. PSYCH: Cooperative. Good eye contact. Appropriate mood and affect. SKIN: Warm, dry, normal turgor, no rashes or lesions noted. Vital Signs Temperature 98.4 F 01/04/19 16:30 Pulse Rate 81 01/04/19 16:30 Respiratory Rate 20 01/04/19 16:30 Blood Pressure 142/74 01/04/19 16:30 O2 Sat by Pulse Oximetry (%) 95 01/04/19 09:00 Lab Results WBC 5.4 K/mm3 (4.0-10.0) 01/04/19 07:00 RBC 3.99 M/mm3 (3.60-5.2) 01/04/19 07:00 Hgb 12.2 GM/dL (10.7-15.3) 01/04/19 07:00 Hct 36.9 % (32.4-45.2) 01/04/19 07:00 MCV 92.3 fl (80-96) 01/04/19 07:00 MCHC 33.1 g/dl (32.0-36.0) 01/04/19 07:00 RDW 13.3 % (11.6-15.6) 01/04/19 07:00 Plt Count 301 K/MM3 (134-434) 01/04/19 07:00 Sodium 140 mmol/L (136-145) 01/04/19 07:00 Potassium 4.3 mmol/L (3.5-5.1) 01/04/19 07:00 Chloride 111 mmol/L (98-107) H 01/04/19 07:00 Carbon Dioxide 22 mmol/L (21-32) 01/04/19 07:00 Anion Gap 8 MMOL/L (8-16) 01/04/19 07:00 BUN 18 mg/dL (7-18) 01/04/19 07:00 Creatinine 0.7 mg/dL (0.55-1.3) 01/04/19 07:00 Random Glucose 92 mg/dL (74-106) 01/04/19 07:00 Calcium 8.8 mg/dL (8.5-10.1) 01/04/19 07:00 Patient seen and examined Case discussed with PA No indication for surgical intervention at this time
[2019-01-03 15:03] VITALS: BMI 28.2
--- NOTE | 2019-01-03 20:06 | PDOC ---
Documentation entered by Lila Perez SCRIBE, acting as scribe for Jane Mccormick DO. Jane Mccormick DO: This documentation has been prepared by the Chris villareal Sammi, SCRIBE, under my direction and personally reviewed by me in its entirety. I confirm that the documentation accurately reflects all work, treatment, procedures, and medical decision making performed by me. Attending Attestation - Resident Resident Name: Chao Zhou - HPI HPI: 01/03/19 06:21 The patient is an 78 year old female, with a significant PMH of lumbar spinal surgery (08/2018), HTN, HLD, who presents to the emergency department for evaluation of low back pain radiating down bilateral lower extremity. The patients daughter states after one of the patients visits with rehab after her surgery in August she has been experiencing worsening low back and pelvic pain. She notes assocaited bilateral lower extremity edema. The patient has been evaluated by the ED several times, with no relief in pain. - Physicial Exam PE: 01/03/19 06:22 Agree with resident's exam - Medical Decision Making 01/03/19 78 yo with chronic back pain secondary to stenosis now with worsening pain and in ability to ambulate recent CT and MRI performed on previous visits no new neurological symptoms morphine 4mg given in the ED with plans for re-admission and PT re-evaluation
[2019-01-03] MEDS: ATORVASTATIN CA 10 MG TABLET (FP) PO SCH (21:56)
[2019-01-03] MEDS: KETOROLAC TROMETHAMINE 15 MG/ML VIAL IVPUSH PRN (21:57)
[2019-01-04] MEDS: HEPARIN NA (PORCINE) 5,000 UNITS/ML 1ML VIAL SQ SCH ×3 (05:52→21:19)
[2019-01-04] MEDS: KETOROLAC TROMETHAMINE 15 MG/ML VIAL IVPUSH PRN (07:04)
--- NOTE | 2019-01-04 07:42 | CONSULT ---
Consult Consult Specialty:: back pain Referred by:: hospitalist Reason for Consultation:: back pain - History of Present Illness Chief Complaint: abdominal pain History of Present Illness: 78 year old female with PMH of HTN, HLD, CHF, OA, restless leg syndrome presents with bilateral flank pain and diffuse abdominal discomfort for the past week that worsened a few nights ago. CUrrently she reports increased abdominal pain. Her last bowel movement was a few days ago. - Past Medical History Cardio/Vascular: Yes: HTN, Hyperlipdemia Pulmonary: Yes: Other. No: Asthma, Bronchitis, Cancer, COPD, O2 Dependent, Pneumonia, Previously Intubated, Pulmonary Embolus, Pulmonary Fibrosis, Sleep Apnea ...: No Musculoskeletal: Yes: Osteoarthritis Rheumatology: Yes: Other (Osteoarthritis) - Past Surgical History Past Surgical History: Yes: Joint Replacement (left HIP ) - Alcohol/Substance Use Hx Alcohol Use: No History of Substance Use: reports: None - Smoking History Smoking history: Never smoked Have you smoked in the past 12 months: No - Social History ADL: Independent Home Medications - Allergies Allergies/Adverse Reactions: Allergies Allergy/AdvReac Type Severity Reaction Status Date / Time Penicillins Allergy Itching Verified 01/02/19 06:04 - Home Medications Home Medications: Ambulatory Orders Atorvastatin Ca [Lipitor] 10 mg PO HS 12/06/16 Carvedilol [Coreg -] 25 mg PO BID tablet 12/13/16 Multivitamins [Multivit ([facility] Formulary)] 1 tab PO DAILY tab 02/05/17 Acetaminophen [Tylenol .Extra-Strength -] 500 mg PO Q6H PRN 08/25/18 Aspirin [Ecotrin] 81 mg PO DAILY 08/25/18 Acetaminophen W/ Codeine #3 [Tylenol # 3 -] 1 tab PO TID PRN 12/22/18 Pramipexole Dihydrochloride [Mirapex -] 0.5 mg PO DAILY 12/22/18 Rotigotine [Neupro] 2 mg TP DAILY 12/22/18 Furosemide [Lasix] 40 mg PO DAILY #30 tablet 12/23/18 Losartan Potassium 100 mg PO DAILY #30 tablet 12/23/18 Spironolactone [Aldactone] 25 mg PO DAILY #30 tablet 12/23/18 Sulfamethoxazole/Trimethoprim [Bactrim Ds -] 1 tab PO BID #14 tablet 12/25/18 Ergocalciferol (Vitamin D2) [Vitamin D2] 50,000 unit PO WEEKLY 01/03/19 Gabapentin 300 mg PO BID 01/03/19 Meloxicam 15 mg PO DAILY 01/03/19 Tramadol HCl 50 mg PO Q6H 01/03/19 Physical Exam Vital Signs: Vital Signs Temperature 99 F 01/04/19 07:03 Pulse Rate 73 01/04/19 07:03 Respiratory Rate 20 01/04/19 07:03 Blood Pressure 135/56 L 01/04/19 07:03 O2 Sat by Pulse Oximetry (%) 98 01/03/19 21:00 Musculoskeletal: Yes: Back Pain Assessment/Plan upper abdominal pain back pain secondary to arthritis/post laminectomy syndrome Unclear etiology- possibly flare up of her lower back condition 1. continue gabapentin 2. physical therapy 3. consider senna/colace/ etc since patient has not had a bowel movement in a few days which may be aggravating her pain 4. no interventional pain management recommended
[2019-01-04 07:54] LABS: HEMATOCRIT 36.9 % (32.4-45.2); HEMOGLOBIN 12.2 GM/dL (10.7-15.3); MCH 30.5 pg (25.7-33.7); MCHC 33.1 g/dl (32.0-36.0); MEAN CELL VOLUME 92.3 fl (80-96); MEAN PLT VOLUME 7.2 fl (7.5-11.1); PLATELET COUNT 301 K/MM3 (134-434); RBC 3.99 M/mm3 (3.60-5.2); RDW 13.3 % (11.6-15.6); WHITE BLOOD COUNT 5.4 K/mm3 (4.0-10.0)
[2019-01-04 08:06] LABS: ALBUMIN 3.5 g/dl (3.4-5.0); BILIRUBIN,TOTAL 0.4 mg/dL (0.2-1); CALCIUM 8.8 mg/dL (8.5-10.1); CREATININE 0.7 mg/dL (0.55-1.3); MAGNESIUM 2.1 mg/dL (1.8-2.4); PHOSPHOROUS 3.3 mg/dL (2.5-4.9); POTASSIUM 4.3 mmol/L (3.5-5.1); TOT PROT 6.2 g/dl (6.4-8.2)
[2019-01-04] MEDS ORDERED: POLYETHYLENE GLYCOL 3350 119 GM BTL PO ONE (08:15)
[2019-01-04] MEDS ORDERED: ACETAMINOPHEN 500 MG TABLET (FP) PO PRN ×2 (08:43→09:51)
[2019-01-04] MEDS: LOSARTAN POTASSIUM 50 MG TABLET (FP) PO SCH (09:16)
[2019-01-04] MEDS: GABAPENTIN 300 MG CAPSULE (FP) PO SCH ×2 (09:16→21:19)
[2019-01-04] MEDS: MULTIVITAMINS (DAILY MVI) TABLET (FP) PO SCH (09:16)
[2019-01-04] MEDS: FUROSEMIDE 40 MG TABLET (FP) PO SCH (09:16)
[2019-01-04] MEDS: ASPIRIN COATED 81 MG TABLET.EC PO SCH (09:17)
[2019-01-04] MEDS: CARVEDILOL 25 MG TABLET (FP) PO SCH ×2 (09:17→21:19)
[2019-01-04] MEDS ORDERED: GLYCERIN 1 RECTAL SUPPOSITORY, ADULT RC ONE (10:30)
--- NOTE | 2019-01-04 14:59 | PN ---
Teaching Attending Note Name of Resident: Kamari Nevarez ATTENDING PHYSICIAN STATEMENT I saw and evaluated the patient. I reviewed the resident's note and discussed the case with the resident. I agree with the resident's findings and plan as documented. SUBJECTIVE: No fever or chills. has lower back pain, that radiates like a band to front. had BM 2 days ago. tongiling in her feet OBJECTIVE: NAD, MMM CV: RRR, no MRG. Lungs: CTAB LE: No edema , no erythema MS: No TTP over lumbar spine or paraspinal muscles . TTP over R lower ribs Neuro of LE: strength 5/5 in lower extremities proximally and distally. sensation chata light touch NL. reflexes 2+ knee jerk and neg BAbinski's . nl sensation to light touch is normal in perianal and and perineal area. ASSESSMENT AND PLAN: Pleasant 78 y/o lady with h/o HTN,Restless leg syndrome, diastolic CHF, HLD, Sciatica, OA , spinal stenosis, recent back SX , and recent admission who presented with lower back pain and a recent fall . 1- Lower back pain : no red flags. no weakness, or saddle anesthesia, no incontinence, no fever or leukocytosis, no point tenderness. - MRI form last admisison reviewed. CT abd /pelvis 01/02 reviewed. . - seen by ortho and pain management. no intervention is deemed necessary - get plain film of R ribs and L spine given recent fall - dc morphine and toradol and susbtitute ibuprofen and tramadol - PT 2- chronic diastolic heart failure: cont home lasix 3- HTN: cont home meds 4- Restless leg syndrome PT eval. she was offered but refused rehab placement. if xrays are neg, will dc home with VNS .
[2019-01-04] MEDS: DOCUSATE SODIUM 100 MG CAPSULE (FP) PO SCH ×2 (15:41→21:19)
--- NOTE | 2019-01-04 16:40 | DS ---
Physical Exam: SUBJECTIVE: Patient seen and examined at bedside. c/o pain but improved w/ meds. denies fever, chills, n/v/d, sob. pt understands her condition and options but refuses rec for rehab and wants VNS at home. OBJECTIVE: Vital Signs Period Temp Pulse Resp BP Sys/Naqvi Pulse Ox Last 24 Hr 98 F-99 F 73-86 18-20 115-163/55-92 95-98 PHYSICAL EXAM GENERAL: AOX3 NAD HEAD: Normal with no signs of trauma. EYES: PERRL, extraocular movements intact, sclera anicteric, conjunctiva clear. ENT: nares patent, oropharynx clear without exudates, moist mucous membranes. NECK: Trachea midline, full range of motion, supple. LUNGS: Breath sounds equal, clear to auscultation bilaterally, no wheezes, no crackles, no accessory muscle use. TTP R anterior lower ribs HEART: Regular rate and rhythm, S1, S2 without murmur, rub or gallop. ABDOMEN: Soft, nontender, nondistended, normoactive bowel sounds, no guarding, no rebound, no hepatosplenomegaly, no masses. EXTREMITIES: 2+ pulses, warm, well-perfused, no edema. NEUROLOGICAL: Cranial nerves II through XII grossly intact. Normal speech, gait not observed. sensation strength grossly intact. MSK no spinal or paraspinal tenderness PSYCH: Normal mood, normal affect. SKIN: Warm, dry, normal turgor, no rashes or lesions noted. LABS Laboratory Results - last 24 hr 01/03/19 01/04/19 01/04/19 05:55 07:00 07:00 WBC 5.4 RBC 3.99 Hgb 12.2 Hct 36.9 MCV 92.3 MCH 30.5 MCHC 33.1 RDW 13.3 Plt Count 301 MPV 7.2 L Sodium 140 140 Potassium 4.9 4.3 Chloride 111 H 111 H Carbon Dioxide 20 L 22 Anion Gap 9 8 BUN 18 18 Creatinine 0.9 0.7 Est GFR (CKD-EPI)AfAm 69.99 94.84 Est GFR (CKD-EPI)NonAf 60.39 81.83 Random Glucose 101 92 Calcium 9.3 8.8 Phosphorus 3.3 Magnesium 2.1 Total Bilirubin 0.5 0.4 AST 16 17 ALT 25 20 Alkaline Phosphatase 92 77 Total Protein 7.3 6.2 L Albumin 4.2 3.5 Total Amylase 71 Lipase 531 177 [id number] CT/SPIRAL- RENAL-STONE CT Right nephrolithiasis. CT scan of the abdomen pelvis without oral and intravenous contrast Coronal and sagittal reformatted images were obtained No prior is available for comparison Included lower lung demonstrates mild changes. The heart is borderline in size. A small hiatus hernia is present. Evaluation of the liver, spleen, pancreas, both adrenal glands and kidneys appear unremarkable. There is no evidence of hydroureteronephrosis or ureteral stone, bilaterally. Limited evaluation of the lower pelvis due to bilateral hip prosthesis. A partially distended urinary bladder is present without gross. Motion/breathing artifacts are limiting evaluation of a partially distended gallbladder without gross intraluminal stones. There is no evidence of small bowel obstruction. Normal-appearing terminal ileum and appendix. Normal stool burden the colon with multiple scattered diverticula present, mainly in the sigmoid colon without evidence of acute diverticulitis. No free air, free fluid or gross enlarged lymph nodes are identified. Normal size abdominal aorta with dense calcifications down through its bifurcation. A small fat-containing umbilical hernia is present. Note is made of atrophy with fatty infiltration of the left iliac psoas muscle, relative to the right. Bilateral hip prosthesis are present in satisfactory alignment. There is moderate degenerative disc disease at L5-S1 level IMPRESSION: Limited evaluation of the gallbladder due to motion/breathing artifact, in particular evaluation of its wall. No gross intraluminal stones are identified. Correlate clinically to determine further evaluation. A small hiatus hernia is present. There is no evidence of hydroureteronephrosis, renal or ureteral stone, bilaterally. Note is made of a tiny fat-containing umbilical hernia. Atrophy/fatty infiltration in the left iliac psoas muscle when compared to the right. Diverticulosis coli mainly in the sigmoid colon without evidence of acute diverticulitis. There is no evidence of small bowel obstruction. Bilateral hip prosthesis in satisfactory alignment. Reported By: Venu Lopez MD 01/02/19 1027 EXAM#: TYPE/EXAM: RESULT: [id number] MRI/LUMBAR SPINE MRI W/O CONTRAST REASON FOR THE STUDY. LOW BACK PAIN MRI OF LUMBOSACRAL SPINE C-. Comparison study MRI of lumbosacral spine July 19, 2018 Multiple pulse sequences were completed utilizing [employer] 1.5T SIGNA MRI system. Sagittal: T1, T2, STIR. Axial: T1, T2. Coronal: T2. Findings. Normal lumbar stenosis Desiccation is seen in the lower thoracic spine, throughout the lumbosacral spine. T11-T12. No evidence of disc displacement, central spinal canal stenosis. T12-L1. Posterior annular bulge. No evidence of central spinal canal stenosis or neural foramina narrowing. Direct axial images were obtained from L1 through L5-S1. L1-L2. There is no evidence of central spinal canal stenosis, or neural foramina narrowing. Small midline disc protrusion, the greatest posterior extension of the disc approximately 3 mm. Facet joint arthropathy. L2-L3. No evidence of disc herniation central spinal canal stenosis, or neural foramina narrowing. Facet joint arthropathy. L3-L4. Hypertrophic facet joint arthropathy with thickened ligamentum flavum. Mild degenerative anterior spondylolisthesis of L3 on L4. Mild central spinal canal stenosis with positive sedimentation sign. No compression of L3 nerves traversing through the neural foramina. L4-L5. Hypertrophic facet joint arthropathy with enlarged facet joints, thickened ligamentum flavum. Circumferential disc bulge. Mild degenerative anterior spondylolisthesis of L4 on L5. Central spinal canal stenosis. No compression of L4 nerves traversing through the neural foramina. L5-S1. Loss of disc space height, disc desiccation. Status post laminectomy resection of the spinous process of L5. T2 STIR images (edema) of the soft tissues. No evidence of central spinal canal stenosis. Facet joint arthropathy. Right paracentral small osteophyte. Disc osteophyte complex encroaching on neural foramina without compression of L5 nerves. The perineural fat in the neural foramina is not effaced. Midline posterior induration of the subcutaneous fat with increased signal intensity on T2, T2 STIR WI. Normal conus medullaris terminates at the superior aspect of L2. Normal signal intensity of the lower thoracic cord. Normal height of vertebral bodies. No evidence of acute compression deformities. . No pathological bone marrow replacement or bone marrow edema is seen. Diffuse fatty bone marrow changes. On T2 coronal images, no hydronephrosis is seen. No hepatic or splenic lesions are seen within the limitation of examination. Status post bilateral total hip replacement. Normal signal intensity of the psoas muscles. IMPRESSION. L3-L4. Hypertrophic facet joint arthropathy with thickened ligamentum flavum. Mild degenerative anterior spondylolisthesis of L3 on L4. Mild central spinal canal stenosis with positive sedimentation sign. No compression of L3 nerves traversing through the neural foramina. L4-L5. Hypertrophic facet joint arthropathy with enlarged facet joints, thickened ligamentum flavum. Circumferential disc bulge. Mild degenerative anterior spondylolisthesis of L4 on L5. Central spinal canal stenosis. No compression of L4 nerves traversing through the neural foramina. L5-S1. Loss of disc space height, disc desiccation. Status post laminectomy resection of the spinous process of L5. Postsurgical changes are noted at the postsurgical site with increased signal intensity on T2, T2 STIR images (edema) of soft tissues. No evidence of central spinal canal stenosis. Facet joint arthropathy. Right paracentral small osteophyte. Disc osteophyte complex encroaching on neural foramina without compression of L5 nerves. The perineural fat in the neural foramina is not effaced. 12/28/18 1030 [id number] RAD/SPINE-LUMBAR SACRAL HISTORY PROVIDED: Fall. 4 views of the lumbosacral spine reveals no evidence of fracture, subluxation or acute bony abnormalities. Mild degenerative changes are noted diffusely, most marked at L5- S1 where there is extensive disc space narrowing. The patient is S/P bilateral total hip replacements. IMPRESSION: Mild degenerative arthritis at L5-S1, no fracture or acute bony abnormalities. Reported By: Perez Samayoa MD 01/04/19 1552 [id number] RAD/RIBS RIGHT SIDE HISTORY PROVIDED: Fall. AP and multiple oblique projections of the right ribs reveals partially healed fractures of multiple lower anterolateral ribs. These include the seventh, eighth, ninth and tenth ribs. The chronicity of these fractures is uncertain. Clinical correlation is advised. IMPRESSION: Partially healed fractures of the lower right rib cage. Please see above discussion. Reported By: Perez Samayoa MD 01/04/19 6177 HOSPITAL COURSE: Date of Admission:01/03/19 HPI: 78 y/o f with significant pmh of spinal stenosis/ livamentum flavum hypertrophy/ lumbar laminectomy came in because eof back pain form last 3 days. Pt states that on Tuesday she tripped while walking and fell backward and pain started 2 days after that/ did not loose consciousness. Pain is in back and is in band like fashion around the b/l iliac crest. Pian is 8/10 in intensity, constant, increases while she tries to move or change position, didn't get better with Tylenol, now pain s radiating to posterior/lateral part of left thigh, calf and dorsum of her foot. Pt also states that she is use to get cortisone shots in her back for the pain but last week she couldn't get it as she was diagnosed with uti. Denies new numbness or weakness, denies urine and fecal incontinence. Denies fever or chills. Pt came with same complaint yesterday also and CT abdomen was done in er and was sent home with diagnosis of dehydration. Pt had MRI of her back last week. ECHO was done on 12/22 Date of Discharge: 01/04/19 78yo F with PMH HTN, HLD, d CHF, OA, restless leg syndrome, spinal stenosis with ligamentum flavum hypertrophy s/p L4-S1 laminectomy in August 2018 p/w lower back pain and a recent fall Admitted for Lower back pain. afebrile VSS, non septic appearing. MRI from last admission and CT abd /pelvis 01/02 reviewed above. surgery and pain management consulted, no further recs/interventions. pt denies red flags: weakness, saddle anesthesia, or incontinence. pt was tx w/ IV morphine/toradol and transitioned to tramadol, tylenol, advil PO. pt was advised and offered PADDY but pt refused rehab placement. pt understands her condition and options and understands the risks of worsening condition by refusing rehab. pt will go home with VNS. pt noted w/ TTP R anterior lower ribs. lumbosacral and R rib XR reviewed above. pt stable and ready for dc w/ appropriate f/u Minutes to complete discharge: 37 Discharge Summary Reason For Visit: INTRACTABLE PAIN Current Active Problems Intractable pain (Chronic) Ribs, multiple fractures (Chronic) Condition: Fair - Instructions Diet, Activity, Other Instructions: you came in for back pain. your chest Xray showed fractures in your right ribs that are healing. please avoid heavy lifting and use warm compresses and pain meds. please resume your home meds Please take tylenol 1000mg every 8 hours as needed for your pain. please do not exceed 4grams within 24hours. (use for pain scale 1-4) please take motrin/advil 400mg every 8 hours as needed for pain (use for pain scale 4-6) please take tramadol 50mg every 8 hours for pain. use tramadol if Tylenol and motrin are ineffective (use for pain scale 7-10) please use colace 100mg twice a day to help you move your bowels while taking tramadol you did not wish to go to rehab. we will send you home with visiting nurse services Please follow up with your PCP within 1week Please follow up with pain management Dr Stephens within 1 week Please follow up with neurosurgeon Dr Espinal within 1 week and review your prior MRI and CT scans. Referrals: Uriel Espinal MD, [facility] [Staff Physician] - 1 Week Cal Stephens MD [Staff Physician] - 1 Week Kay Rucker MD [Primary Care Provider] - 1 Week Disposition: VNS/HOME HEALTH CARE - Home Medications Comprehensive Discharge Medication List: Ambulatory Orders Atorvastatin Ca [Lipitor] 10 mg PO HS 12/06/16 Carvedilol [Coreg -] 25 mg PO BID tablet 12/13/16 Multivitamins [Multivit ([facility] Formulary)] 1 tab PO DAILY tab 02/05/17 Aspirin [Ecotrin] 81 mg PO DAILY 08/25/18 Furosemide [Lasix] 40 mg PO DAILY #30 tablet 12/23/18 Losartan Potassium 100 mg PO DAILY #30 tablet 12/23/18 Ergocalciferol (Vitamin D2) [Vitamin D2] 50,000 unit PO WEEKLY 01/03/19 Gabapentin 300 mg PO BID 01/03/19 Acetaminophen 1,000 mg PO Q8H PRN 15 Days #30 tablet 01/04/19 Docusate Sodium [Colace -] 100 mg PO BID 30 Days #60 capsule 01/04/19 Ibuprofen [Motrin -] 400 mg PO Q8H PRN 15 Days #45 tablet 01/04/19 This patient is new to me today: Yes Date on this admission: 01/04/19 Emergency Visit: Yes ED Registration Date: 01/03/19 Care time: The patient presented to the Emergency Department on the above date and was hospitalized for further evaluation of their emergent condition. Critical Care patient: No - Discharge Referral Referred to [facility] No
[2019-01-04] MEDS: traMADol HCL 50 MG TABLET PO PRN (16:41)
[2019-01-04] MEDS: ATORVASTATIN CA 10 MG TABLET (FP) PO SCH (21:19)
[2019-01-04] MEDS ORDERED: SENNOSIDES 8.6MG TABLET (FP) PO SCH (22:00)
[2019-01-05] MEDS: HEPARIN NA (PORCINE) 5,000 UNITS/ML 1ML VIAL SQ SCH ×2 (05:46→14:00)
[2019-01-05] MEDS: DOCUSATE SODIUM 100 MG CAPSULE (FP) PO SCH ×2 (05:46→13:28)
[2019-01-05] MEDS: IBUPROFEN 400 MG TABLET (FP) PO PRN ×2 (05:47→13:27)
[2019-01-05] MEDS: traMADol HCL 50 MG TABLET PO PRN (10:04)
[2019-01-05] MEDS: GABAPENTIN 300 MG CAPSULE (FP) PO SCH (10:07)
[2019-01-05] MEDS: FUROSEMIDE 40 MG TABLET (FP) PO SCH (10:07)
[2019-01-05] MEDS: MULTIVITAMINS (DAILY MVI) TABLET (FP) PO SCH (10:07)
[2019-01-05] MEDS: CARVEDILOL 25 MG TABLET (FP) PO SCH (10:07)
[2019-01-05] MEDS: ASPIRIN COATED 81 MG TABLET.EC PO SCH (10:08)
[2019-01-05] MEDS: LOSARTAN POTASSIUM 50 MG TABLET (FP) PO SCH (10:08)
[2019-01-05 10:12] VITALS: BP 153/59; PULSE 76; TEMP 98.2
--- NOTE | 2019-01-05 14:47 | PN ---
Progress Note (short form) - Note Progress Note: SUBJECTIVE: Patient seen and examined at bedside. pain improved w/ meds. denies fever, chills, n/v/d, sob. pt understands her condition and options but refuses rec for rehab and wants VNS at home. OBJECTIVE: PHYSICAL EXAM GENERAL: AOX3 NAD HEAD: Normal with no signs of trauma. EYES: PERRL, extraocular movements intact, sclera anicteric, conjunctiva clear. ENT: nares patent, oropharynx clear without exudates, moist mucous membranes. NECK: Trachea midline, full range of motion, supple. LUNGS: Breath sounds equal, clear to auscultation bilaterally, no wheezes, no crackles, no accessory muscle use. TTP R anterior lower ribs HEART: Regular rate and rhythm, S1, S2 without murmur, rub or gallop. ABDOMEN: Soft, nontender, nondistended, normoactive bowel sounds, no guarding, no rebound, no hepatosplenomegaly, no masses. EXTREMITIES: 2+ pulses, warm, well-perfused, no edema. NEUROLOGICAL: Cranial nerves II through XII grossly intact. Normal speech, gait not observed. sensation strength grossly intact. MSK no spinal or paraspinal tenderness PSYCH: Normal mood, normal affect. SKIN: Warm, dry, normal turgor, no rashes or lesions noted. A/P 78yo F with PMH HTN, HLD, d CHF, OA, restless leg syndrome, spinal stenosis with ligamentum flavum hypertrophy s/p L4-S1 laminectomy in August 2018 p/w lower back pain and a recent fall pt was dcd yesterday. pt family was initially concerned and considered appealing dc. however today agreeable to dc. pt feels much better and ctl w/ current pain regimen. pt walked 200 ft w/ PT. pt stable and ready for dc w/ appropriate f/u
--- NOTE | 2019-01-05 17:24 | PN ---
Teaching Attending Note Name of Resident: Kamari Nevarez ATTENDING PHYSICIAN STATEMENT I saw and evaluated the patient. I reviewed the resident's note and discussed the case with the resident. I agree with the resident's findings and plan as documented. Patient was discharged yesterday but did not leave . No change in clinical status. no change in exam. she reports her pain is better and gets the pain ( lower back and radiates as a band to abd ) only when she moves. dc plan was d/w her again.
== END 2019-01-05 14:25 | disposition home health service (06) | DRG 552 ==
LOC: JER 04:50 → JERBED 11:25 → J8W 13:23
PROVIDERS: ADMIT Internal Medicine; ATTEND Internal Medicine
DX: M48.061 Spinal stenosis, lumbar region without neurogenic claudication (principal); I50.32 Chronic diastolic (congestive) heart failure; I11.0 Hypertensive heart disease with heart failure; M43.16 Spondylolisthesis, lumbar region; M46.86 Other specified inflammatory spondylopathies, lumbar region; S22.41XD Multiple fractures of ribs, right side, subsequent encounter for fracture with routine healing; E78.5 Hyperlipidemia, unspecified; G25.81 Restless legs syndrome; M19.90 Unspecified osteoarthritis, unspecified site; Z96.643 Presence of artificial hip joint, bilateral; S39.82XA Other specified injuries of lower back, initial encounter; W07.XXXA Fall from chair, initial encounter; Y93.89 Activity, other specified; Y92.038 Other place in apartment as the place of occurrence of the external cause; Y99.8 Other external cause status
CPT/HCPCS: 36415; 71101-TC-RT-FY; 72100-TC-FY; 74176-TC; 80053; 81003; 82150; 83690; 83735; 84100; 85025; 85027; 87086; 93005; 93010; 96374; 97116-GP; 97161-GP; 99281-25; 99283-25; J0131; J1644

== ENCOUNTER 2022-05-01 00:21 | Emergency (ER) | payer OTHER, MEDICARE ==
[2022-05-01 00:49] VITALS: BMI 25.2
[2022-05-01] MEDS ORDERED: ACETAMINOPHEN 325 MG TABLET (FP) PO ONE (02:23)
[2022-05-01] MEDS ORDERED: ACETAMINOPHEN 325 MG TABLET (FP) ONE (02:30)
[2022-05-01 03:03] LABS: BASO % 0.2 % (0-2.0); EOS % 1.3 % (0-4.5); HEMATOCRIT 39.8 % (32.4-45.2); HEMOGLOBIN 13.8 GM/dL (10.7-15.3); LYMPH % 15.2 % (8-40); MCH 31.4 pg (25.7-33.7); MCHC 34.6 g/dl (32.0-36.0); MEAN CELL VOLUME 90.9 fl (80-96); MEAN PLT VOLUME 7.2 fl (7.5-11.1); NEUT % 76.3 % (42.8-82.8); PLATELET COUNT 282 10^3/uL (134-434); RBC 4.38 M/mm3 (3.60-5.2); RDW 13.4 % (11.6-15.6); WHITE BLOOD COUNT 10.1 K/mm3 (4.0-10.0)
[2022-05-01] MEDS ORDERED: LIDOCAINE HCL 1%, 10 MG/ML (50 mL VIAL) SQ ONE (03:14)
[2022-05-01] MEDS ORDERED: LIDOCAINE HCL 1%, 10 MG/ML (20ML VIAL) ONE (03:21)
[2022-05-01 03:23] LABS: CALCIUM 9.5 mg/dL (8.5-10.1)
[2022-05-01 03:24] LABS: ALBUMIN 4.2 g/dl (3.4-5.0)
[2022-05-01 03:26] LABS: CREATININE 0.8 mg/dL (0.55-1.3)
[2022-05-01 03:28] LABS: BILIRUBIN,TOTAL 0.6 mg/dL (0.2-1); TOT PROT 7.1 g/dl (6.4-8.2)
[2022-05-01 03:41] LABS: INR 1.03 (0.83-1.09); PROTHROMBIN TIME (PATIENT) 11.8 SEC (9.7-13.0)
[2022-05-01 03:44] LABS: ACTIVATED PTT 32.4 SECONDS (25.2-36.5)
[2022-05-01] MEDS ORDERED: morphine CARPU-JECT 2 MG/1 ML DISP.SYRIN IVPUSH ONE (04:06)
[2022-05-01 06:01] VITALS: BP 160/60; PULSE 72; RESP 17; TEMP 98.2
== END 2022-05-01 06:05 | disposition home or self-care (01) ==
LOC: JER 00:21
PROC: 0PSHXZZ Reposition Right Radius, External Approach (ICD-10-PCS; principal; 2022-05-01)
PROC: 3E033GC Introduction of Other Therapeutic Substance into Peripheral Vein, Percutaneous Approach (ICD-10-PCS; 2022-05-01)
DX: S52.121A Displaced fracture of head of right radius, initial encounter for closed fracture (principal); S20.211A Contusion of right front wall of thorax, initial encounter; W01.0XXA Fall on same level from slipping, tripping and stumbling without subsequent striking against object, initial encounter
CPT/HCPCS: 36415; 70450-TC; 71250-TC; 72125-TC; 73090-TC-RT-FY; 73110-TC-RT-FY; 73130-TC-RT-FY; 73590-TC-LT-FY; 74176-TC; 80053; 84484; 85025; 85610; 85730; 93005; 93010; 99285-25; C9803-CS; U0003; U0005

== ENCOUNTER 2022-05-13 08:23 | Day surgery (SDC) | payer OTHER, MEDICARE ==
[2022-05-10 15:06] VITALS: BMI 25.2
[2022-05-13] MEDS ORDERED: MIDAZOLAM HCL 2 MG/2 ML SINGLE DOSE VIAL ONE (10:26)
[2022-05-13] MEDS ORDERED: DEXAMETHASONE SOD PHOSPHATE 10 MG/1 ML VIAL ONE (10:27)
[2022-05-13] MEDS ORDERED: ROPIVACAINE HCL 0.5% 30ML VIAL ONE (10:27)
[2022-05-13] MEDS ORDERED: PROPOFOL 20 ML ONE ×2 (10:59→11:41)
[2022-05-13] MEDS ORDERED: ceFAZolin SODIUM 1 GM VIAL ONE (10:59)
[2022-05-13] MEDS ORDERED: LIDOCAINE HCL 1%, 10 MG/ML (20ML VIAL) ONE (11:07)
[2022-05-13] MEDS ORDERED: BUPIVACAINE HCL/PF 0.5% (5MG/ML) 10 ML VIAL ONE (11:07)
[2022-05-13] MEDS ORDERED: ONDANSETRON 4 MG/2 ML VIAL ONE (11:08)
[2022-05-13] MEDS ORDERED: DEXAMETHASONE SOD PHOSPHATE 4 MG/1 ML VIAL ONE (11:08)
[2022-05-13] MEDS ORDERED: oxyCODONE HCL 5 MG TABLET PO PRN (12:15)
[2022-05-13] MEDS ORDERED: LACTATED RINGERS SOLUTION 1,000 ML IV SCH (12:15)
[2022-05-13] MEDS ORDERED: ONDANSETRON 4 MG/2 ML VIAL IVPUSH PRN (12:15)
[2022-05-13 12:20] VITALS: RESP 14; TEMP 97.2
[2022-05-13 12:21] VITALS: PULSE 65
[2022-05-13 12:51] VITALS: BP 164/50
== END 2022-05-13 13:45 | disposition home or self-care (01) ==
LOC: FASU 08:23
PROVIDERS: ATTEND Orthopaedic Surgery
PROC: 0LN50ZZ Release Right Lower Arm and Wrist Tendon, Open Approach (ICD-10-PCS; 2022-05-13)
PROC: 0PSH04Z Reposition Right Radius with Internal Fixation Device, Open Approach (ICD-10-PCS; principal; 2022-05-13 11:07)
DX: S52.501A Unspecified fracture of the lower end of right radius, initial encounter for closed fracture (principal); X58.XXXA Exposure to other specified factors, initial encounter; Y93.9 Activity, unspecified; Y92.9 Unspecified place or not applicable
CPT/HCPCS: 73110-TC-RT-FY; 94760; C1713; J1100

== ENCOUNTER 2022-12-09 13:33 | Inpatient (IN) | payer OTHER, MEDICARE ==
[2022-12-09 13:49] VITALS: BMI 23.8
[2022-12-09] MEDS ORDERED: KETOROLAC TROMETHAMINE 15 MG/ML VIAL IVPUSH ONE (17:44)
[2022-12-09] MEDS ORDERED: KETOROLAC TROMETHAMINE 15 MG/ML VIAL ONE (17:51)
[2022-12-09 20:18] LABS: BASO % 0.6 % (0-2.0); EOS % 2.7 % (0-4.5); HEMATOCRIT 35.2 % (32.4-45.2); HEMOGLOBIN 12.1 GM/dL (10.7-15.3); MCH 30.3 pg (25.7-33.7); MCHC 34.4 g/dl (32.0-36.0); MEAN CELL VOLUME 88.1 fl (80-96); MEAN PLT VOLUME 7.1 fl (7.5-11.1); MONO % 8.5 % (3.8-10.2); NEUT % 67.2 % (42.8-82.8); PLATELET COUNT 241 10^3/uL (134-434); RDW 13.4 % (11.6-15.6); WHITE BLOOD COUNT 6.7 K/mm3 (4.0-10.0)
[2022-12-09 20:34] LABS: POTASSIUM 3.5 mmol/L (3.5-5.1)
[2022-12-09 20:36] LABS: CALCIUM 8.6 mg/dL (8.5-10.1)
[2022-12-09 20:37] LABS: ALBUMIN 3.2 g/dl (3.4-5.0); BLOOD UREA NITROGEN 15.4 mg/dL (7-18)
[2022-12-09 20:40] LABS: CREATININE 0.9 mg/dL (0.55-1.3)
[2022-12-09 20:41] LABS: BILIRUBIN,TOTAL 0.6 mg/dL (0.2-1)
[2022-12-09 20:42] LABS: TOT PROT 6.2 g/dl (6.4-8.2)
[2022-12-09] MEDS ORDERED: ASPIRIN 81 MG CHEWABLE TABLETS PO SCH (22:00)
[2022-12-09] MEDS ORDERED: FUROSEMIDE 40 MG TABLET (FP) PO SCH (22:00)
[2022-12-09] MEDS ORDERED: ATORVASTATIN CA 10 MG TABLET (FP) PO SCH (22:00)
[2022-12-09] MEDS ORDERED: GABAPENTIN 400 MG CAPSULE PO SCH (22:00)
[2022-12-09] MEDS: POLYETHYLENE GLYCOL (HEALTHYLAX) 3350 17 GM PACKET PO SCH (23:16)
[2022-12-09] MEDS: CARVEDILOL 25 MG TABLET (FP) PO SCH (23:39)
[2022-12-10] MEDS: POLYETHYLENE GLYCOL (HEALTHYLAX) 3350 17 GM PACKET PO SCH ×2 (05:42→14:34)
[2022-12-10] MEDS: ACETAMINOPHEN 1000 MG/100 ML BAG IVPB PRN ×2 (06:05→16:22)
[2022-12-10 08:35] LABS: BASO % 0.4 % (0-2.0); EOS % 2.4 % (0-4.5); HEMATOCRIT 31.6 % (32.4-45.2); HEMOGLOBIN 11.4 GM/dL (10.7-15.3); LYMPH % 26.4 % (8-40); MCH 31.6 pg (25.7-33.7); MCHC 35.9 g/dl (32.0-36.0); MEAN CELL VOLUME 87.8 fl (80-96); MEAN PLT VOLUME 7.7 fl (7.5-11.1); MONO % 9.3 % (3.8-10.2); NEUT % 61.5 % (42.8-82.8); PLATELET COUNT 221 10^3/uL (134-434); WHITE BLOOD COUNT 6.5 K/mm3 (4.0-10.0)
[2022-12-10 08:38] LABS: CALCIUM 8.4 mg/dL (8.5-10.1); MAGNESIUM 1.9 mg/dL (1.8-2.4)
[2022-12-10 08:39] LABS: ALBUMIN 2.9 g/dl (3.4-5.0)
[2022-12-10 08:41] LABS: PHOSPHOROUS 2.6 mg/dL (2.5-4.9)
[2022-12-10 08:42] LABS: CREATININE 0.6 mg/dL (0.55-1.3)
[2022-12-10 08:43] LABS: BILIRUBIN,TOTAL 0.8 mg/dL (0.2-1); TOT PROT 5.5 g/dl (6.4-8.2)
[2022-12-10] MEDS ORDERED: ENOXAPARIN NA (PORCINE) 40 MG/0.4 ML DISP.SYRIN SQ SCH (10:00)
[2022-12-10] MEDS ORDERED: MULTIVITAMINS THER W-MINERALS COMBO TABLET (FP) PO SCH (10:00)
[2022-12-10] MEDS ORDERED: FUROSEMIDE 40 MG/4 ML INJECTABLE VIAL IVPUSH SCH (10:00)
[2022-12-10] MEDS: CARVEDILOL 25 MG TABLET (FP) PO SCH (10:32)
[2022-12-10] MEDS: KCL 10 MEQ IVPB 10 MEQ/100 ML INFUS.BAG IVPB SCH ×4 (10:32→16:46)
[2022-12-10 13:39] VITALS: BP 152/63; PULSE 63; RESP 18; TEMP 97.4
[2022-12-10] MEDS ORDERED: GABAPENTIN 300 MG CAPSULE PO SCH (14:00)
[2022-12-10] MEDS ORDERED: POTASSIUM CHLORIDE TABS 10 MEQ TABLET.ER (FP) PO ONE (16:25)
[2022-12-10] MEDS ORDERED: POTASSIUM CHLORIDE ORAL LIQUID 20 MEQ/15 ML PO ONE (16:39)
== END 2022-12-10 18:00 | disposition home or self-care (01) | DRG 552 ==
LOC: JER 13:33 → JERBED 17:48 → J5S 21:45
PROVIDERS: ADMIT Internal Medicine
DX: S32.018A Other fracture of first lumbar vertebra, initial encounter for closed fracture (principal); I50.32 Chronic diastolic (congestive) heart failure; S32.028A Other fracture of second lumbar vertebra, initial encounter for closed fracture; R09.02 Hypoxemia; E78.5 Hyperlipidemia, unspecified; G25.81 Restless legs syndrome; I11.0 Hypertensive heart disease with heart failure; E04.2 Nontoxic multinodular goiter; E87.6 Hypokalemia; G62.9 Polyneuropathy, unspecified; W19.XXXA Unspecified fall, initial encounter; Y92.090 Kitchen in other non-institutional residence as the place of occurrence of the external cause; Y93.9 Activity, unspecified; Y99.9 Unspecified external cause status
CPT/HCPCS: 0241U-QW; 36415; 70450-TC; 71045-TC-FY; 71275-TC; 72131-TC; 72170-TC-FY; 72192-TC; 80053; 83735; 83880; 84100; 84439; 84443; 84484; 85025; 93005; 93010; 93306-TC; 97116-GP; 97162-GP; 99285-25; Q9967